=== PATIENT | female | born 1990 | race Caucasian/White ===

== ENCOUNTER 2023-11-04 17:54 | Emergency (ER) | payer OTHER, SELFPAY ==
[2023-11-04] VITALS (12 sets, daily range): BP systolic 142–149; BP diastolic 85–98; PULSE 63–87; RESP 13–24; TEMP 36.7; O2SAT 96–100; BMI 35.3
--- NOTE | 2023-11-04 18:03 | ED.GENADUL1 ---
HPI - General Adult General Chief complaint: Upper Respiratory Infection Stated complaint: BODY ACHES CHEST PAIN Time Seen by Provider: 11/04/23 17:58 Source: patient Mode of arrival: walk-in Limitations: no limitations History of Present Illness HPI narrative: 33-year-old female presents for multiple symptoms all of which began today. She states it started with a hoarse voice which is a little bit better now. She states her throat hurts and she's been vomiting and I can't keep anything down. Her body hurts as well. She took a home Covid test that was negative. Related Data Previous Rx's Medication Instructions Recorded ibuprofen 800 mg tablet 800 mg PO Q8H PRN pain #20 tabs 11/04/23 ondansetron 4 mg disintegrating 4 mg PO Q6H PRN nausea and 11/04/23 tablet vomiting #20 tabs Allergies Allergy/AdvReac Type Severity Reaction Status Date / Time codeine Allergy Severe Hives Verified 11/04/23 18:03 Review of Systems ROS Narrative A ten point review of systems is negative except as noted above. Exam Narrative Exam Narrative: Nurses note and vital signs reviewed and patient is not hypoxic. General: The patient appears well and in no apparent distress. Patient is resting comfortably on cart. Skin: Warm, dry, no pallor noted. There is no rash noted. Head: Normocephalic, atraumatic Eye: Normal conjunctiva, no drainage Ears, Nose, Mouth, and Throat: oral mucosa is moist. Nares patent. no pharyngeal erythema or exudate Cardiovascular: Regular Rate and Rhythm Respiratory: Patient is in no distress, no accessory muscle use, lungs are clear to auscultation, no wheezing, rales or rhonchi Back: non-tender GI: soft and nontender Musculoskeletal: The patient has no evidence of calf tenderness, no pitting edema, symmetrical pulses noted bilaterally Neurological: A&O, normal speech Psychiatric: Cooperative Constitutional Vital Signs, click to edit/add: Last Vital Signs Temp 98.1 F 11/04/23 17:58 Pulse 72 11/04/23 18:20 Resp 13 11/04/23 18:20 BP 149/85 H 11/04/23 18:13 Pulse Ox 97 11/04/23 18:20 O2 Del Method Room Air 11/04/23 17:58 Course Vital Signs Vital signs: Vital Signs Temperature 98.1 F 11/04/23 17:58 Pulse Rate 80 11/04/23 17:58 Respiratory Rate 20 11/04/23 17:58 Blood Pressure 142/98 H 11/04/23 17:58 Pulse Oximetry 98 11/04/23 17:58 Oxygen Delivery Method Room Air 11/04/23 17:58 Temperature 98.1 F 11/04/23 17:58 Pulse Rate 72 11/04/23 18:20 Respiratory Rate 13 11/04/23 18:20 Blood Pressure 149/85 H 11/04/23 18:13 Pulse Oximetry 97 11/04/23 18:20 Oxygen Delivery Method Room Air 11/04/23 17:58 Medical Decision Making MDM Narrative Medical decision making narrative: workup is negative. This includes influenza and strep tests as well as blood work. She had a home Covid test that was negative. My clinical impression is that she has a viral illness. Antibiotic not indicated. Treatment diagnosis and follow-up were discussed with the patient. Differential Diagnosis Differential Diagnosis: Covid, influenza, strep, viral illness Lab Data Lab results reviewed: Yes I reviewed the patient's lab results Labs: Lab Results 11/04/23 Range/Units 18:09 WBC 10.2 (4.0-11.0) 10^3/uL RBC 4.51 (4.20-5.40) 10^6/uL Hgb 12.7 (12.0-16.0) g/dL Hct 39.7 (36.0-48.0) % MCV 88.0 (81.0-99.0) fL MCH 28.2 (26.7-34.0) pg MCHC 32.0 (29.9-35.2) g/dL RDW 12.7 (11.0-15.0) % Plt Count 352 (150-450) 10^3/uL MPV 9.2 L (9.5-13.5) fL Neut % (Auto) 64.5 (43.0-75.0) % Lymph % (Auto) 27.6 (20.5-60.0) % Coles % (Auto) 6.4 (1.7-12.0) % Eos % (Auto) 0.7 L (0.9-7.0) % Baso % (Auto) 0.5 (0.2-2.0) % Neut # (Auto) 6.6 H (1.4-6.5) 10^3/uL Lymph # (Auto) 2.8 (1.2-3.8) 10^3/uL Coles # (Auto) 0.7 (0.3-0.8) 10^3/uL Eos # (Auto) 0.1 (0.0-0.7) 10^3/uL Baso # (Auto) 0.1 (0.0-0.1) 10^3/uL Abs Immat Gran (auto) 0.03 (0.00-0.03) 10^3/uL Imm/Tot Granulo (auto) 0.3 (0.0-0.5) % Sodium 141 (136-145) mmol/L Potassium 3.8 (3.5-5.1) mmol/L Chloride 106 (98-107) mmol/L Carbon Dioxide 26.9 (21.0-32.0) mmol/L Anion Gap 11.9 BUN 9.0 (7.0-18.0) mg/dL Creatinine 0.78 (0.55-1.02) mg/dL Est GFR ( Amer) >60 (>=60) Est GFR (Non-Af Amer) >60 (>=60) BUN/Creatinine Ratio 11.5 Glucose 94 (74-106) mg/dL Calcium 8.5 (8.5-10.1) mg/dL Influenza Type A Ag Negative Influenza Type B Ag Negative Streptococcus Screen Negative Discharge Plan Discharge Chief Complaint: Upper Respiratory Infection Clinical Impression: Viral infection Patient Disposition: Home, Self-Care Time of Disposition Decision: 18:45 Condition: Good Mode of Transportation: Private Vehicle Prescriptions / Home Meds: New ibuprofen 800 mg tablet 800 mg PO Q8H PRN (Reason: pain) Qty: 20 0RF ondansetron 4 mg tablet,disintegrating 4 mg PO Q6H PRN (Reason: nausea and vomiting) Qty: 20 0RF Instructions: Viral Syndrome (ED) Stand Alone Forms: Portal Instructions Referrals: Physician,Non-Staff, MD [Primary Care Provider] - 1 week
--- NOTE | 2023-11-04 18:04 | ECG_ITS ---
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
[2023-11-04] MEDS: 0.9 % SODIUM CHLORIDE 1,000 ML 1000 ML IV (18:15)
[2023-11-04] MEDS: ONDANSETRON PF 4 MG/2 ML VIAL IV (18:15)
[2023-11-04 18:20] LABS: Basophils Absolute Auto 0.1 10^3/uL (0.0-0.1); Basophils Percent Auto 0.5 % (0.2-2.0); Eosinophils Absolute Auto 0.1 10^3/uL (0.0-0.7); Eosinophils Percent Auto 0.7 % (0.9-7.0); Hematocrit 39.7 % (36.0-48.0); Hemoglobin 12.7 g/dL (12.0-16.0); Immature Granulocytes Abs Auto 0.03 10^3/uL (0.00-0.03); Immature Granulocytes Pct Auto 0.3 % (0.0-0.5); Lymphocytes Absolute Auto 2.8 10^3/uL (1.2-3.8); Lymphocytes Percent Auto 27.6 % (20.5-60.0); Mean Corpuscular Hemoglobin 28.2 pg (26.7-34.0); Mean Platelet Volume 9.2 fL (9.5-13.5); Monocytes Absolute Auto 0.7 10^3/uL (0.3-0.8); Monocytes Percent Auto 6.4 % (1.7-12.0); Neutrophils Absolute Auto 6.6 10^3/uL (1.4-6.5); Neutrophils Percent Auto 64.5 % (43.0-75.0); Platelet Count 352 10^3/uL (150-450); Red Blood Count 4.51 10^6/uL (4.20-5.40); Red Cell Distribution Width 12.7 % (11.0-15.0); White Blood Count 10.2 10^3/uL (4.0-11.0)
[2023-11-04 18:27] LABS: Internal Control Within Normal Limits; Strep A Antigen Screen Negative
[2023-11-04 18:32] LABS: Anion Gap 11.9; BUN Creatinine Ratio 11.5; Calcium 8.5 mg/dL (8.5-10.1); Carbon Dioxide 26.9 mmol/L (21.0-32.0); Chloride 106 mmol/L (98-107); Estimated GFR (African America >60 (>=60); Estimated GFR (Non-African Ame >60 (>=60); Glucose 94 mg/dL (74-106); Influenza Virus A Antigen Negative; Influenza Virus B Antigen Negative; Internal Control Within Normal Limits; Potassium 3.8 mmol/L (3.5-5.1); Sodium 141 mmol/L (136-145)
== END 2023-11-04 19:24 | disposition home or self-care (01) ==
PROVIDERS: Emergency Provider Emergency Medicine
DX: B34.9 Viral infection, unspecified (principal)
CPT/HCPCS: 36415; 80048; 85025; 87070; 87804; 87880; 93005; 96361; 96374; 99285

== ENCOUNTER 2024-02-20 17:18 | Emergency (ER) | payer OTHER, SELFPAY ==
--- OUTSIDE RECORDS SUMMARY | 2024-02-20 17:24 | XMS_ITS | CCD ---
Author Organization [facility] Care Team Providers Care Avid Editor Name Role Phone ROLANDO Mcclelland Attending Provider [facility], Services Primary Care Provider [phone]( [phone] DO Maurisio Parks Emergency Provider [phone] Jose A Govea Admitting Unavailable Jose A Govea Attending Unavailable NO FAMILY, PHYSICIAN Primary Care Unavailable [facility], [facility] Primary Care Unavaila ble Emily Mcclelland Admitting Unavailable Emily Mcclelland Attending Unavailable [facility] Primary Care Unavaila ble Emily Mcclelland Admitting Unavailable Emily Mcclelland Attending Unavailable [facility] Primary Care Unavaila ble Emily Mcclelland Attending Unavailable Emily Mcclelland Admitting Unavailable Stas, Emily Mejia Admitting Unavailable [facility], Services Primary Care Unavaila ble Stas, Emily Mejia Attending Unavailable Jose A Govea Admitting Unavailable Jose A Govea Attending Unavailable [facility] Primary Care Unavaila ble TuMaurisio ennis Admitting Unavailable Maurisio Parks Attending Unavailable [facility] Primary Care Unavaila ble GAYATHRI, DR SINCLAIR Primary Care Unavailable NADIR ., DR CARMEN Zaidi Attending Unavaila ble GRILLISaman ., DR CARMEN Zaidi Consulting Unavaila ble GRILLISaman ., DR CARMEN Zaidi Admitting Unavaila ble HAY ., DR SMITH Consulting Unavailable OZ RICCI Consulting Unavailable MAISHA IIDANILO Consulting Unavailable PHILLIP BOGGS Referring Unavailable PHILLIP BOGGS Attending Unavailable Allergies Allergy Classification Reported Allergen(s) Allergy Type Date of Onset Reaction(s) Facility (4 sources) Codeine; Translations: [codeine] Drug Allergy 04-17-2013 [place] (4 sources) HYDROcodone; Translations: [hydrocodone] Drug Allergy 01-26-2022 [place] Medications Current Medications Medication Drug Class(es) Dates Sig (Normalized) Sig (Original) aspirin 81 mg chewable tablet (2 sources) Platelet Aggregation Inhibitor, Nonsteroidal Anti-inflammatory Drug Start: 08-02-2017 take 1 tablet by mouth once daily Aspirin (Aspirin Childrens) 81 mg Tablet,Chewable Active 81 MG PO Daily August 01, 2017 11:00pm 24 hr metFORMIN hydrochloride 500 mg extended release oral tablet (1 source) Biguanide Start: 02-06-2023 take 500 mg by mouth once daily Metformin Active 500 MG PO Daily February 06, 2023 12:00am Completed/Discontinued Medications Medication Drug Class(es) Dates Sig (Normalized) Sig (Original) acetaminophen 325 mg / oxyCODONE hydrochloride 5 mg oral tablet (2 sources) Opioid Agonist Start: 02-06-2022 End: 02-06-2023 take 1-2 tablets by mouth every six hours as needed for pain Oxycodone-Acetamin ophen (Percocet) 5-325 mg tablet Discontinued 1 TAB PO Q6H 12 3 February 06, 2022 February 06, 2023 12:18pm May take 1-2 tabs q 6 hours prn pain [id number] 200 actuat albuterol 0.09 mg/actuat metered dose inhaler (2 sources) beta2-Adrenergic Agonist Start: 03-21-2018 End: 04-24-2018 Albuterol Sulfate Discontinued 2 INH INHALATION Q4H 8 March 20, 2018 11:00pm April 24, 2018 3:56pm administer with spacer cephalexin 500 mg oral capsule (2 sources) Cephalosporin Antibacterial Start: 01-26-2022 End: 02-06-2022 take 500 mg by mouth twice daily Cephalexin Discontinued 500 MG PO Twice daily 14 7 January 26, 2022 12:00am February 06, 2022 6:21am dextromethorphan hydrobromide 3 mg/ml / promethazine hydrochloride 1.25 mg/ml oral solution (2 sources) Phenothiazine, Uncompetitive U-pmylyc-W-aspartat e Receptor Antagonist, Sigma-1 Agonist Start: 03-21-2018 End: 04-24-2018 take 1 mL by mouth every four to six hours Promethazine-Dm Discontinued 5 ML PO EVERY 4-6 HOURS 118 March 20, 2018 11:00pm April 24, 2018 3:56pm hydrocortisone acetate 25 mg rectal suppository (2 sources) Corticosteroid Start: 05-16-2019 End: 09-12-2019 Hydrocortisone Acetate (Anusol-Hc) 25 mg suppository Discontinued 25 MG TX Twice daily May 15, 2019 11:00pm September 12, 2019 9:39pm ibuprofen 600 mg oral tablet (4 sources) Nonsteroidal Anti-inflammatory Drug Start: 02-06-2022 End: 02-06-2023 Ibuprofen Discontinued 600 MG PO Every 6 hours February 06, 2022 12:00am February 06, 2023 12:18pm do not exceed 4 doses in a 24 hour period Start: 07-19-2021 End: 02-06-2022 take 800 mg by mouth every six hours Ibuprofen Discontinued 800 MG PO Q6H July 18, 2021 11:00pm February 06, 2022 6:21am loperamide hydrochloride 2 mg oral capsule (2 sources) Opioid Agonist Start: 08-03-2017 End: 09-28-2017 Loperamide (Imodium A-D) 2 mg capsule Discontinued 2 MG PO Q1H August 02, 2017 11:00pm September 28, 2017 8:49pm after each loose stool until symptoms controlled; do not exceed 8 mg total dose in 24 hrs Mouthwashes (2 sources) Start: 05-14-2020 End: 07-19-2021 Mouthwashes Discontinued 1 SPRAY MUCOUS MEM Daily May 13, 2020 11:00pm July 19, 2021 8:14am naproxen 500 mg oral tablet (4 sources) Nonsteroidal Anti-inflammatory Drug Start: 04-24-2018 End: 05-16-2019 take 1 tablet by mouth twice daily Naproxen (Naprosyn) 500 mg tablet Discontinued 500 MG PO Twice daily March 06, 2019 11:00pm May 16, 2019 12:14am nitrofurantoin, macrocrystals 25 mg / nitrofurantoin, monohydrate 75 mg oral capsule (2 sources) Nitrofuran Antibacterial Start: 12-01-2018 End: 03-06-2019 take 1 capsule by mouth twice daily at mealtime Nitrofurantoin Monohyd/M-Cryst (Macrobid) 100 mg capsule Discontinued 100 MG PO Twice daily December 01, 2018 12:00am March 06, 2019 10:08pm must administer with a meal/food ondansetron 4 mg oral tablet (4 sources) Serotonin-3 Receptor Antagonist Start: 09-29-2017 End: 10-04-2017 take 1 tablet by mouth every eight hours Ondansetron Hcl (Zofran) 4 mg tablet Discontinued 4 MG PO Q8H 15 September 28, 2017 11:00pm October 03, 2017 11:04pm Start: 08-03-2017 End: 09-28-2017 take 1 tablet by mouth every eight hours Ondansetron (Zofran Odt) 4 mg tablet,disintegrating Discontinued 4 MG PO Q8H August 02, 2017 11:00pm September 28, 2017 8:49pm penicillin v potassium 500 mg oral tablet (2 sources) Start: 04-24-2018 End: 03-06-2019 take 500 mg by mouth four times daily Penicillin V Potassium Discontinued 500 MG PO Four times daily April 23, 2018 11:00pm March 06, 2019 10:08pm predniSONE 20 mg oral tablet (2 sources) Start: 03-21-2018 End: 03-26-2018 take 60 mg by mouth once daily at mealtime Prednisone Discontinued 60 MG PO Daily 14 04March 20, 2018 11:00pm March 25, 2018 11:01pm administer with food or milk promethazine hydrochloride 12.5 mg oral tablet (2 sources) Phenothiazine Start: 09-29-2017 End: 03-21-2018 take 12.5 mg by mouth every six hours Promethazine Discontinued 12.5 MG PO Q6H September 28, 2017 11:00pm March 21, 2018 9:42pm Problems Active Problems Problem Classification Problem Date Documented Da te Episodic/Chronic Abdominal pain (4 sources) Right lower quadrant pain; Translations: [Right lower quadrant pain] Onset: 3 Episodic Acute bronchitis (2 sources) Acute bronchitis; Translations: [Acute bronchitis, unspecified] 03-21-2018 Episodic Appendicitis and other appendiceal conditions (1 source) Unspecified acute appendicitis; Translations: [UNSPECIFIED ACUTE APPENDICITIS] Onset: 3 Episodic Diabetes mellitus without complication (1 source) Type 2 diabetes mellitus without complications; Translations: [TYPE 2 DM WITHOUT COMPLICATIONS] Onset: 3 Chronic Diseases of mouth; excluding dental (2 sources) Aphthous ulcer of mouth; Translations: [Recurrent oral aphthae] 05-14-2020 Episodic Gastrointestinal hemorrhage (2 sources) Gastrointestinal hemorrhage; Translations: [Hemorrhage of anus and rectum] 05-16-2019 Episodic Genitourinary symptoms and ill-defined conditions (2 sources) Blood in urine; Translations: [Hematuria, unspecified] 01-26-2022 Episodic Lymphadenitis (2 sources) Lymphadenopathy; Translations: [Generalized enlarged lymph nodes] 07-19-2021 Episodic Nausea and vomiting (4 sources) Nausea, vomiting and diarrhea; Translations: [Nausea with vomiting, unspecified] 09-29-2017 Episodic Nonspecific chest pain (1 source) Chest pain, unspecified; Translations: [Chest pain, unspecified] Onset: 3 Episodic Other aftercare (1 source) nursing home (current) use of oral hypoglycemic drugs; Translations: [SENIOR CARE USE ORAL HYPOGLYCEMIC DX] Onset: 3 Episodic Other gastrointestinal disorders (2 sources) Diarrhea; Translations: [Diarrhea, unspecified] 05-16-2019 Episodic Other nervous system disorders (2 sources) Acute postoperative pain; Translations: [Other acute postprocedural pain] 02-06-2022 Episodic Other nutritional; endocrine; and metabolic disorders (1 source) Obesity, unspecified; Translations: [OBESITY UNSPECIFIED] Onset: 3 Chronic Other nutritional; endocrine; and metabolic disorders (1 source) Body mass index (BMI) 36.0-36.9, adult; Translations: [BODY MASS INDEX BMI 36.0-36.9 ADULT] Onset: 3 Chronic Residual codes; unclassified (1 source) Acquired absence of both cervix and uterus; Translations: [ACQUIRED ABSENCE BOTH CERVIX AND UTERUS] Onset: 3 Episodic Screening and history of mental health and substance abuse codes (1 source) Personal history of nicotine dependence; Translations: [PERSONAL HISTORY OF NICOTINE DEPEND] Onset: 3 Episodic Superficial injury; contusion (2 sources) Contusion of hand; Translations: [Contusion of left hand, initial encounter] 09-12-2019 Episodic Unclassified (1 source) K13.79 - Other lesions of oral mucosa; Translations: [K13.79 - Other lesions of oral mucosa] Onset: 2 Unclassified (1 source) Z01.812 - Encounter for preprocedural laboratory examination; Translations: [Z01.812 - Encounter for preprocedural laboratory examination] Onset: 2 Unclassified (1 source) K80.50 - Calculus of bile duct without cholangitis or cholecystitis without obstruction; Translations: [K80.50 - Calculus of bile duct without cholangitis or cholecystitis without obstruction] Onset: 2 Unclassified (1 source) R60.9 - Edema, unspecified; Translations: [R60.9 - Edema, unspecified] Onset: 2 Unclassified (1 source) CONTACT W/AND (SUSP) EXPOS COVID-19; Translations: [CONTACT W/AND (SUSP) EXPOS COVID-19] Onset: 3 Urinary tract infections (2 sources) Urinary tract infectious disease; Translations: [Urinary tract infection, site not specified] 01-26-2022 Episodic Viral infection (2 sources) Acute viral disease; Translations: [Viral infection, unspecified] 09-29-2017 Episodic Past or Other Problems Problem Classification Problem Date Documented Da te Episodic/Chronic Deficiency and other anemia (1 source) Other iron deficiency anemias; Translations: [D50.8 - Other iron deficiency anemias] Onset: 03-20-2022 Episodic Immunizations and screening for infectious disease (1 source) Encounter for screening for infectious and parasitic diseases, unspecified; Translations: [Z11.9 - Encounter for screening for infectious and parasitic diseases, unspecified] Onset: 05-31-2022 Episodic Other nutritional; endocrine; and metabolic disorders (1 source) Abnormal weight gain; Translations: [R63.5 - Abnormal weight gain] Onset: 03-20-2022 Episodic Results Test Name Value Interpretation Reference Range Facility BI MAMMOGRAM SCREENING TOMOS RUFINO BILATERALon 11-27-2023 BI MAMMOGRAM SCREENING TOMOSYNTHESIS BILATERAL This is a summary report. The complete report is available in the patient's medical record. If you cannot access the medical record, please contact the sending organization for a detailed fax or copy. EXAMINATION: BI MAMMOGRAM SCREENING TOMOSYNTHESIS BILATERAL CLINICAL HISTORY: family hx of breast cancer COMPARISON: None. Baseline. RESULT: 3-D tomosynthesis imaging of the bilateral breast(s) was performed. Density: Heterogeneously dense [3] There are no suspicious masses or asymmetries, areas of architectural distortion or suspicious areas of microcalcifications. IMPRESSION: BIRADS 1 - Negative Recommended follow-up: Routine Screening Mamm Board Certified Radiologists. Accredited by the ACR and FDA. MAMMOGRAPHY IS VERY IMPORTANT TO YOUR HEALTH. THE [place] GUIDELINES RECOMMEND THAT WOMEN 40 YEARS OF AGE AND OLDER SHOULD HAVE A MAMMOGRAM EVERY YEAR. A REMINDER LETTER WILL BE SENT AT THE APPROPRIATE TIME. THIS FACILITY UTILIZES A REMINDER SYSTEM TO ENSURE ALL PATIENTS RECEIVE REMINDER NOTIFICATIONS AT THE APPROPRIATE TIME BASED ON THE RECOMMENDATIONS OF THIS EXAM. THIS INCLUDES REMINDERS FOR ROUTINE SCREENING MAMMOGRAMS, DIAGNOSTIC MAMMOGRAMS IN WHICH THE PATIENT IS ASKED TO RETURN FOR ADDITIONAL VIEWS, OR OTHER BREAST IMAGING INTERVENTIONS WHEN APPROPRIATE. THE PATIENT WILL BE PLACED IN THE APPROPRIATE REMINDER SYSTEM INCLUDING A REMINDER AT THE APPROPRIATE TIME FOR ANY PENDING ADDITIONAL VIEWS. ELECTRONICALLY SIGNED BY: Jose Kiran MD Normal Not Available AMYLASEon 02-06-2023 Amylase [Catalytic activity/Vol] 41 U/L Normal 25-115 [facility] Comment on above: Performed By: #### L IPA, CMP, CHERRY #### [facility] [address] [place] [address] Dr. Kate Oconnor CBC AUTO DIFFon 02-06-2023 BASO # 0.0 103/ul Normal 0.0-0.1 [facility] Comment on above: Performed By: #### C BC #### [facility] [address] [place] [address] Dr. Kate Oconnor Basophils/100 WBC (Bld) 0.2 % Normal 0.2-2.0 [facility] Comment on above: Performed By: #### C BC #### [facility] [address] [place] [address] Dr. Kate Oconnor EO # 0.1 103/ul Normal 0.0-0.7 [facility] Comment on above: Performed By: #### C BC #### [facility] [address] [place] [address] Dr. Kate Oconnor Eosinophils/100 WBC (Bld) 0.5 % Critically low 0.9-7.0 [facility] Comment on above: Performed By: #### C BC #### [facility] [address] [place] [address] Dr. Kate Oconnor Erythrocyte distribution width (RBC) [Ratio] 13.0 % Normal 11.0-15.0 [facility] Comment on above: Performed By: #### C BC #### [facility] [address] [place] [address] Dr. Kate Oconnor Hematocrit (Bld) [Volume fraction] 41.5 % Normal 36.0-48.0 [facility] Comment on above: Performed By: #### C BC #### [facility] [address] [place] [address] Dr. Kate Oconnor Hemoglobin (Bld) [Mass/Vol] 13.7 g/dL Normal 12.0-16.0 [facility] Comment on above: Performed By: #### C BC #### [facility] [address] [place] [address] Dr. Ktae Oconnor IG # 0.05 10e3/ul Critically high 0.00-0.03 [facility] Comment on above: Performed By: #### C BC #### [facility] [address] [place] [address] Dr. Kate Oconnor IG % 0.3 % Normal 0.0-0.5 [facility] Comment on above: Performed By: #### C BC #### [facility] [address] [place] [address] Dr. Kate Oconnor LYMPH # 2.8 103/ul Normal 1.2-3.8 [facility] Comment on above: Performed By: #### C BC #### [facility] [address] [place] [address] Dr. Kate Oconnor Lymphocytes/100 WBC (Bld) 18.6 % Critically low 20.5-60.0 [facility] Comment on above: Performed By: #### C BC #### [facility] [address] [place] [address] Dr. Kate Oconnor MANUAL DIFF REQ NO Normal [facility] Comment on above: Performed By: #### C BC #### [facility] [address] [place] [address] Dr. Kate Oconnor MCH (RBC) [Entitic mass] 27.2 pg Normal 26.7-34.0 [facility] Comment on above: Performed By: #### C BC #### [facility] [address] [address] [address] Kate Oconnor MCHC (RBC) [Mass/Vol] 33.0 g/dL Normal 29.9-35.2 [facility] Comment on above: Performed By: #### C BC #### [facility] [address] [address] [address] Kate Oconnor MCV (RBC) [Entitic vol] 82.5 fL Normal 81.0-99.0 [facility] Comment on above: Performed By: #### C BC #### [facility] [address] [address] [address] Kate Oconnor MONO # 0.9 103/ul Critically high 0.3-0.8 [facility] Comment on above: Performed By: #### C BC #### [facility] [address] [address] [address] Kate Oconnor Monocytes/100 WBC (Bld) 5.7 % Normal 1.7-12.0 [facility] Comment on above: Performed By: #### C BC #### [facility] [address] [address] [address] Kate Oconnor NEUT # 11.2 103/ul Critically high 1.4-6.5 [facility] Comment on above: Performed By: #### C BC #### [facility] [address] [address] [address] Kate Oconnor Neutrophils/100 WBC (Bld) 74.7 % Normal 43.0-75.0 [facility] Comment on above: Performed By: #### C BC #### [facility] [address] [address] [address] Kate Oconnor Platelet mean volume (Bld) [Entitic vol] 8.9 fL Critically low 9.5-13.5 [facility] Comment on above: Performed By: #### C BC #### [facility] [address] [address] [address] Kate Oconnor PLT 383 103/ul Normal 150-450 [facility] Comment on above: Performed By: #### C BC #### [facility] [address] [place], [place] [address] Dr. Kate Oconnor RBC 5.03 106/ul Normal 4.20-5.40 [facility] Comment on above: Performed By: #### C BC #### [facility] [address] [place], [place] [address] Dr. Kate Oconnor WBC 15.0 103/ul Critically high 4.0-11.0 [facility] Comment on above: Performed By: #### C BC #### [facility] [address] [place], [place] [address] ABD/PELV W CONon 02-07-20 CT ABD/PELV W CON EXAMINATION: CT ABD/ PELV W CON HISTORY: Tenderness of right lower quadrant of abdomen COMPARISON: None. TECHNIQUE: CT of abdomen/pelvis with IV and oral contrast. Dose reduction techniques were achieved by using automated exposure control and/or adjustment of mA and/or kV according to patient size and/or use of iterative reconstruction technique. FINDINGS: Primer Assembler: No pertinent findings, which are not already discussed below. Tubes/lines/drains: None. CHEST: Lungs: Clear. Cardiac and vascular: No cardiomegaly or significant pericardial effusion. ABDOMEN: Liver: Unremarkable. Gallbladder and Biliary Tree: Unremarkable. Spleen: Unremarkable. Pancreas: Unremarkable. Adrenal Glands: Unremarkable. Kidneys, Ureters, Bladder: Left cortical 1.4 cm simple cyst. No concerning renal lesions or masses. No urolithiasis. No hydronephrosis or hydroureterosis. Unremarkable bladder. Gastrointestinal: No mural thickening or inflammatory changes. No dilated loops of small or large bowel. The tip of the appendix is inflamed and enlarged, 8 mm. No free air or adjacent free fluid. Reproductive organ(s): Uterus is not visualized and may be surgically absent. Lymphatic: No concerning retroperitoneal, mesenteric, or inguinal adenopathy. Vessels: Unremarkable. BONES AND SOFT TISSUE: Bones: No acute fracture. No concerning osseous lesions. Soft Tissue: Small fat-containing umbilical hernia. IMPRESSION: Acute uncomplicated (tip) appendicitis without evidence for perforation or abscess formation. Dr. Ricci discussed this study with SARAH EVANS on 02/06/2023 3:21 PM MST via telephone. Read back of the patient's information and the important finding was performed. Electronically authenticated by: OZ RICCI Date: 2023-02-06 17:22 Normal [facility] CULTURE URINEon 02-06-2023 CULTURE URINE Culture Observations : LIGHT GROWTH OF MIXED GENITAL FLORY. NO POTENTIAL PATHOGENS SEEN. Normal [facility] Comment on above: Performed By: #### U RCX #### [facility] [address] [address] [address] Kate Oconnor Covid-19 PCR (CVDTB)on SARS-CoV-2 (COVID-19) RNA ADRIAN+probe Ql (Unsp spec) Not detected Normal NOT DETECTED [facility] Comment on above: Result Comment: When diagnostic testing is negative, the possibility of a false negative should be considered in the context of a patient's recent exposures and the presence of clinical signs and symptoms consistent with SARS-CoV-2. This test is not yet approved or cleared by the [place] FDA. When there are no FDA-approved or cleared tests available, and other criteria are met, FDA can make tests available under an emergency access mechanism called an Emergency Use Authorization (EUA). The EUA for this test is supported by the [place] of Health and Human Service's declaration that circumstances exist to justify the emergency use of in vitro diagnostics for the detection and/or diagnosis of the virus that causes COVID-19. This EUA will remain in effect for the duration of the COVID-19 declaration justifying emergency of IVDs, unless it is terminated or revoked by the FDA (after which the test may no longer be used). Performed By: #### C VDTBH #### [facility] [address] [place] [address] Dr. Kate Oconnor ER URINE PROFILEon 3 Bilirubin Ql (U) Negative Normal NEGATIVE [facility] Comment on above: Performed By: #### U MICRO, PREGU, ERUR #### [facility] [address] [place] [address] Dr. Kate Oconnor Clarity (U) CLEAR Normal CLEAR [facility] Comment on above: Performed By: #### U MICRO, PREGU, ERUR #### [facility] [address] [address] [address] Kate Oconnor Color (U) YELLOW Normal YELLOW [facility] Comment on above: Performed By: #### U MICRO, PREGU, ERUR #### [facility] [address] [address] [address] Kate IVERSON A micrscopic examina tion will be performed if indicated. Normal [facility] Comment on above: Performed By: #### U MICRO, PREGU, ERUR #### [facility] [address] [address] [address] Kate Oconnor Glucose Ql (U) Negative Normal NEGATIVE [facility] Comment on above: Performed By: #### U MICRO, PREGU, ERUR #### [facility] [address] [address] [address] Kate Oconnor Hemoglobin Ql (U) Negative Normal NEGATIVE [facility] Comment on above: Performed By: #### U MICRO, PREGU, ERUR #### [facility] [address] [address] [address] Kate Oconnor Ketones Ql (U) 40 mg/dl Abnormal NEGATIVE [facility] Comment on above: Performed By: #### U MICRO, PREGU, ERUR #### [facility] [address] [address] [address] Kate Oconnor LEUKOCYTES SMALL Abnormal NEGATIVE [facility] Comment on above: Performed By: #### U MICRO, PREGU, ERUR #### [facility] [address] [address] [address] Kate Oconnor Nitrite Ql (U) Negative Normal NEGATIVE [facility] Comment on above: Performed By: #### U MICRO, PREGU, ERUR #### [facility] [address] [address] [address] Kate Oconnor pH (U) 5.5 [pH] Normal 5-9 [facility] Comment on above: Performed By: #### U MICRO, PREGU, ERUR #### [facility] [address] [address] [address] Kate Oconnor SPEC GRAVITY >=1.030 Abnormal 1.005-<=1.025 [facility] Comment on above: Performed By: #### U MICRO, PREGU, ERUR #### [facility] [address] [place] [address] Dr. Kate Oconnor UA PROTEIN Negative Normal NEGATIVE/ TRACE [facility] Comment on above: Performed By: #### U MICRO, PREGU, ERUR #### [facility] [address] [place] [address] Dr. Kate Oconnor UR MICRO IND INDICATED Normal [facility] Comment on above: Performed By: #### U MICRO, PREGU, ERUR #### [facility] [address] [place] [address] Dr. Kate Oconnor Urobilinogen Qn (U) 0.2 {Sukh'U}/dL Normal 0.2 - 1.0 [facility] Comment on above: Performed By: #### U MICRO, PREGU, ERUR #### [facility] [address] [place] [address] Dr. Kate Oconnor LIPASEon 02-06-2023 Lipase [Catalytic activity/Vol] 46.0 U/L Critically low 73.0-393.0 [facility] Comment on above: Performed By: #### L IPA CMP, CHERRY #### [facility] [address] [place] [address] Dr. Kate Oconnor URon 02-06-2023 , QUAL Negative Normal NEGATIVE [facility] Comment on above: Performed By: #### U MICRO, PREGU, ERUR #### [facility] [address] [place] [address] Dr. Kate Oconnor PROF 14(COMP METB)on 023 Albumin [Mass/Vol] 4.1 g/dL Normal 3.4-5.0 [facility] Comment on above: Performed By: #### L IPA CMP, CHERRY #### [facility] [address] [place] [address] Dr. Kate Oconnor Albumin/Globulin [Mass ratio] 1.3 {ratio} Normal [facility] Comment on above: Performed By: #### L IPA CMP, CHERRY #### [facility] [address] [address] [address] Kate Oconnor ALP [Catalytic activity/Vol] 78 U/L Normal 46-116 [facility] Comment on above: Performed By: #### L IPA, CMP, CHERRY #### [facility] [address] [address] [address] Kate Oconnor ALT [Catalytic activity/Vol] 25 U/L Normal 14-59 [facility] Comment on above: Performed By: #### L IPA, CMP, CHERRY #### [facility] [address] [address] [address] Kate Oconnor Anion gap [Moles/Vol] 9.6 mmol/L Normal [facility] Comment on above: Performed By: #### L IPA, CMP, CHERRY #### [facility] [address] [place] [address] Dr. Kate Oconnor AST [Catalytic activity/Vol] 18 U/L Normal 15-37 [facility] Comment on above: Performed By: #### L IPA, CMP, CHERRY #### [facility] [address] [address] [address] Kate Oconnor Bilirubin [Mass/Vol] 0.9 mg/dL Normal 0.2-1.0 [facility] Comment on above: Performed By: #### L IPA, CMP, CHERRY #### [facility] [address] [place] [address] Dr. Kate Oconnor Calcium [Mass/Vol] 8.8 mg/dL Normal 8.5-10.1 [facility] Comment on above: Performed By: #### L IPA, CMP, CHERRY #### [facility] [address] [address] [address] Kate Oconnor Chloride [Moles/Vol] 105 mmol/L Normal 98-107 [facility] Comment on above: Performed By: #### L IPA, CMP, CHERRY #### [facility] [address] [address] [address] Kaet Oconnor CO2 [Moles/Vol] 26.8 mmol/L Normal 21.0-32.0 [facility] Comment on above: Performed By: #### L IPA, CMP, CHERRY #### [facility] [address] [address] [address] Kate Oconnor Creatinine [Mass/Vol] 0.69 mg/dL Normal 0.55-1.02 [facility] Comment on above: Performed By: #### L IPA, CMP, CHERRY #### [facility] [address] [address] [address] Kate Oconnor EGFR-AF UKRAINIAN >60 Normal >=60 [facility] Comment on above: Performed By: #### L IPA, CMP, CHERRY #### [facility] [address] [address] [address] Kate Oconnor EGFR-NON AF UKRAINIAN >60 Normal >=60 [facility] Comment on above: Performed By: #### L IPA, CMP, CHERRY #### [facility] [address] [address] [address] Kate Oconnor Globulin (S) [Mass/Vol] 3.2 g/dL Normal [facility] Comment on above: Performed By: #### L IPA, CMP, CHERRY #### [facility] [address] [address] [address] Kate Oconnor Glucose [Mass/Vol] 95 mg/dL Normal 74-106 [facility] Comment on above: Performed By: #### L IPA, CMP, CHERRY #### [facility] [address] [address] [address] Kate Oconnor Potassium [Moles/Vol] 3.4 mmol/L Critically low 3.5-5.1 [facility] Comment on above: Performed By: #### L IPA, CMP, CHERRY #### [facility] [address] [address] [address] Kate Oconnor Protein [Mass/Vol] 7.3 g/dL Normal 6.4-8.2 [facility] Comment on above: Performed By: #### L IPA, CMP, CHERRY #### [facility] [address] [address] [address] Kate Oconnor Sodium [Moles/Vol] 138 mmol/L Normal 136-145 [facility] Comment on above: Performed By: #### L IPA, CMP, CHERRY #### [facility] [address] [address] [address] Kate Oconnor Urea nitrogen [Mass/Vol] 9.0 mg/dL Normal 7.0-18.0 [facility] Comment on above: Performed By: #### L IPA, CMP, CHERRY #### [facility] [address] [address] [address] Kate Oconnor Urea nitrogen/Creatinin e [Mass ratio] 13.0 mg/mg Normal [facility] Comment on above: Performed By: #### L IPA, CMP, CHERRY #### [facility] [address] [place] [address] Dr. Kate Oconnor URINE MICROSCOPIC ONLYon BACTERIA TRACE Abnormal NONE SEEN [facility] Comment on above: Performed By: #### U MICRO, PREGU, ERUR #### [facility] [address] [place] [address] Dr. Kate Oconnor Bacteria identified Cx Nom (U) INDICATED Normal [facility] Comment on above: Performed By: #### U MICRO, PREGU, ERUR #### [facility] [address] [place] [address] Dr. Kate Oconnor CA OX CRYSTALS FEW Normal [facility] Comment on above: Performed By: #### U MICRO, PREGU, ERUR #### [facility] [address] [place] [address] Dr. Kate Oconnor CAST NONE SEEN Normal NONE SEEN [facility] Comment on above: Performed By: #### U MICRO, PREGU, ERUR #### [facility] [address] [place] [address] Dr. Kate Oconnor Crystals LM Nom (Urine sed) SEEN Abnormal NONE SEEN [facility] Comment on above: Performed By: #### U MICRO, PREGU, ERUR #### [facility] [address] [address] [address] Kate Oconnor Epithelial cells LM Ql (Urine sed) FEW Abnormal NONE SEEN /RARE [facility] Comment on above: Performed By: #### U MICRO, PREGU, ERUR #### [facility] [address] [address] [address] Kate Oconnor MUCOUS NONE SEEN Normal NONE SEEN [facility] Comment on above: Performed By: #### U MICRO, PREGU, ERUR #### [facility] [address] [address] [address] Kate Oconnor RBC 0-2 Normal 0-2 [facility] Comment on above: Performed By: #### U MICRO, PREGU, ERUR #### [facility] [address] [address] [address] Kate Oconnor WBC 5-10 Abnormal NONE SEEN [facility] Comment on above: Performed By: #### U MICRO, PREGU, ERUR #### [facility] [address] [address] [address] Kate Oconnor CA holter monitor recordingo n 12-10-2022 CA holter monitor recording [facility] [place] [address] Holter Monitor Report Signed Patient: Neisha Engel MR#: [id number] : 1990 Acct:[id number] Age/Sex: 32 / F ADM Date: 12/04/22 Loc: Room: Type: [facility] Attending Dr: GAEL Pereira APRN Copies to: Emily Mcclelland APRN, GAEL Syed MD, [facility] Ordering Provider: Emily Mcclelland APRN, NP-C Date of Service: 12/04/22 CA/CA holter monitor recording: Chest pain, unspecified type ORDERED BY: ROLANDO Paez INDICATION: A 32-year-old patient with chest pain. 1. The rhythm is sinus throughout the recording. Average heart rate 84 beats per minute. The minimum heart rate was 50 beats per minute, sinus bradycardia at 6:09 a.m., and the maximum heart rate was 145 beats per minute, sinus tachycardia at 11:51 a.m. 2. Three isolated PVCs are noted. 3. No significant premature atrial complexes were seen, except for 1 event of atrial pair. 4. Mild sinus arrhythmia is noted, which is appropriate for the patient's age. 5. No pauses exceeding 2 seconds were seen. 6. No symptoms in the patient's diary. CONCLUSION: A 48-hour Holter monitor that revealed sinus rhythm mechanism throughout. Average heart rate is normal at 84 beats per minute. Three PVCs and no significant premature atrial complexes except for 1 event of atrial couplet. There was no pause exceeding 2 seconds noted. No symptoms in the patient's diary. No previous studies are available for comparison. Transcribed By: GABRIELA 12/10/22 173 Dictated By: Rhoda Syed MD, [facility] 12/10/22 1714 Signed By: 12/11/22 1351 [place] ECG 12 lead ECGon 12-04-2022 ECG 12 lead ECG [facility] [place] [address] Electrocardiograph Report Signed Patient: Neihsa Engel MR#: [id number] : 1990 Acct:[id number] Age/Sex: 32 / F ADM Date: 12/04/22 Loc: Room: Type: [facility] Attending Dr: GAEL Pereira APRN Ordering Provider: Emily Mcclelland APRN, NP-C Date of Service: 12/04/2203/23/1226 ECG/ECG 12 lead ECG: Chest pain, unspecified type Copies to: Test Reason : Blood Pressure : / mmHG Vent. Rate : 064 BPM Atrial Rate : 064 BPM P-R Int : 136 ms QRS Dur : 088 ms QT Int : 380 ms P-R-T Axes : 018 014 012 degrees QTc Int : 392 ms Normal sinus rhythm Normal ECG When compared with ECG of 31-MAY-2022 07:57, No significant change was found Confirmed by ANTONIO COOPER DO ([id number]) on 12/04/2022 6:55:01 PM Referred By: Electronically Signed By:ANTONIO COOPER DO Transcribed By: MUS Signed By Antonio Cooper DO 12/04 8009 [place] 06-05-2022 L ----- Specimen: [id number] Received: 06/06/22 Status: [facility] TER[facility] Barrios Num: [id number] Spec Type: Surgical Subm Dr: Jose A Govea DO Tissues: A Mucocele - Salivary (LT LOWER LIP MUCOCELE) Procedures: HE Stain, Gross/Micro L3 Patient Age/Sex Location Account Attending Physician Neisha Engel 31/ [place] [id number] Jose A Govea DO SPEC NUM: [id number] RECD: 06/06/22 STATUS: [facility] TER[facility] BARRIOS NUM: [id number] BRADLEY: 06/05/22- [place]Z DR: Jose A Govea DO ENTERED: 06/06/22 [facility] DR: Noe [facility] SPEC TYPE: Surgical DEPT: S ORDERED: HE Stain, Gross/Micro L3 ORDERED: HE Stain, Gross/Micro L3 Pathological Diagnosis Left lip mucocele, excision: - Ruptured mucocele cyst with numerous histiocytes, see NOTE. NOTE: Immunohistochemical studies of CD34, S100, desmin, SMA and CD68 have been performed. CD68 highlights numerous histiocytes/macrophages arranged within a circumscribed nodule. The lesional cells are negative for CD34, S100 and desmin. SMA is noncontributory. This case has been reviewed by a second pathologist, who concurs with the above diagnosis. Clinical Information Lower lip mucocele; excision lower left lip mucocele Gross Description Received in formalin labeled with the patient's name and left lip mucocele is a 1.2 x 0.6 cm ellipse of ramirez white apparent skin excised to a depth of 0.7 cm. Sectioning reveals a 0.6 cm yellow-ramirez, rubbery nodule. The specimen is entirely submitted labeled A1. (LG/) Microscopic Description One glass slide with H E stained material and five IHC stained slides has been examined. The microscopic findings support the above pathologic diagnosis. The use of one or more reagents in the above tests is regulated as an analyte specific reagent (ASR). The performance characteristics were determined by the Laboratory of Specimen: [id number] Received: 06/06/22 Status: [facility] Num: [id number] Spec Type: Surgical Subm Dr: Jose A Govea DO Tissues: A Mucocele - Salivary (LT LOWER LIP MUCOCELE) Procedures: HE Stain, Gross/Micro L3 Patient: Neisha Engel [id number] (Continued) Specimen: [id number] Received: 06/06/22 (Continued) Microscopic Description (Continued) Signed (signature on file) Jose Falcon MD 06/07/22 1759 Specimen: [id number] Received: 06/06/22 Status: [facility] Num: [id number] Spec Type: Surgical Subm Dr: Jose A Govea DO Tissues: A Mucocele - Salivary (LT LOWER LIP MUCOCELE) Procedures: HE Stain, Gross/Micro L3 Patient: Neisha Engel [id number] (Continued) Specimen: [id number] Received: 06/06/22 (Continued) Microscopic Description (Continued) [facility]. Immunohistochemistry assays have not been validated on decalcified tissue. Results should be interpreted with caution given the possibility of false negative results on decalcified specimens. They have not been cleared by the [place] Food and Drug Administration. The FDA has determined that such clearance or approval is not necessary. CPT Codes 54984 19399, 95544?3 Specimen: [id number] Received: 06/06/22 Status: [facility] TER[facility] Barrios Num: [id number] Spec Type: Surgical Subm Dr: Jose A Govea DO Tissues: A Mucocele - Salivary (LT LOWER LIP MUCOCELE) Procedures: HE Stain, Gross/Micro L3 Patient: Neisha Engel [id number] (Continued) Signed (signature on file) Jose Falcon MD 06/07/22 2598 Normal [facility] Basic Metabolic Panelon 07-0 Calcium [Mass/Vol] 8.8 mg/dL Normal 8.2-10.2 [facility] Comment on above: Order Comment: Reaso n for Exam Screening examination for infectious disease;Blood tests leatha Result Comment: PERF ORMED BY: [place] [address] PATHOLOGIST SITE AUDITOR GLORIA DOWNEY M.D. Performed By: #### B MP #### [facility] [address] [place] [address] Chloride [Moles/Vol] 105 mmol/L Normal 95-114 [facility] Comment on above: Order Comment: Reaso n for Exam Screening examination for infectious disease;Blood tests leatha Performed By: #### B MP #### [facility] [address] [place] [address] CO2 [Moles/Vol] 24.4 mmol/L Normal 22.0-30.0 [facility] Comment on above: Order Comment: Reaso n for Exam Screening examination for infectious disease;Blood tests leatha Performed By: #### B MP #### [address] Creatinine [Mass/Vol] 0.74 mg/dL Normal 0.44-1.03 [facility] Comment on above: Order Comment: Reaso n for Exam Screening examination for infectious disease;Blood tests leatha Performed By: #### B MP #### [address] [place] [address] [place] Estimated GFR ( Chantel > 60 Normal [facility] Comment on above: Order Comment: Reaso n for Exam Screening examination for infectious disease;Blood tests leatha Result Comment: GFR estimated reference range: According to KDOQI guidelines, <60 ml/min/1.73m2 is sufficient to diagnose a patient with chronic kidney disease. Performed By: #### B MP #### [facility] [address] [place] [address] [place] Estimated GFR (Non- Am > 60 Normal [facility] Comment on above: Order Comment: Reaso n for Exam Screening examination for infectious disease;Blood tests leatha Performed By: #### B MP #### [address] Glucose [Mass/Vol] 91 mg/dL Normal 70-100 [facility] Comment on above: Order Comment: Reaso n for Exam Screening examination for infectious disease;Blood tests leatha Result Comment: [place] Glucose Reference Range is dependent on time and content of last meal. Glucose of more than 200 mg/dL in a nonstressed, ambulatory subject supports the diagnosis of Diabetes Mellitus. ADA recommended reference range Performed By: #### B MP #### [address] Potassium [Moles/Vol] 4.1 mmol/L Normal 3.5-5.1 [facility] Comment on above: Order Comment: Reaso n for Exam Screening examination for infectious disease;Blood tests leatha Performed By: #### B MP #### [place] [address] [place] Sodium [Moles/Vol] 138 mmol/L Normal 136-146 [facility] Comment on above: Order Comment: Reaso n for Exam Screening examination for infectious disease;Blood tests leatha Performed By: #### B MP #### [place] [address] [place] Urea nitrogen [Mass/Vol] 7 mg/dL Low 9-23 [facility] Comment on above: Order Comment: Reaso n for Exam Screening examination for infectious disease;Blood tests leatha Performed By: #### B MP #### [address] [place] [address] [facility] COVID-19 FRMCon 05-31-2022 SARS-CoV-2 (COVID-19) RNA ADRIAN+probe Ql (Unsp spec) Negative Normal Negative [facility] Comment on above: Order Comment: Healt hcare Worker?: N Result Comment: Testing for SARS-CoV-2 by RT-PCR This test was developed and its performance characteristics determined by [facility] and validated at the [facility]. This test has not been FDA cleared or approved. This test has been authorized by FDA under an Emergency Use Authorization (EUA). This test has been validated in accordance with the FDA's Guidance Document (Policy for Diagnostics Testing in Laboratories Certified to Perform High Complexity Testing under CLIA prior to Emergency Use Authorization for Coronavirus Disease-2019 during the Public Health Emergency) issued on March 02, 2020. This test is only authorized for the duration of time the declaration that circumstances exist justifying the authorization of the emergency use of in vitro diagnostic tests for detection of SARS-CoV-2 virus and/or diagnosis of COVID-19 infection under section 564(b)(1) of the Act, 21 U.S.C. 360bbb-3(b)(1), unless the authorization is terminated or revoked sooner. PERFORMED BY: [place] [address] PATHOLOGIST SITE AUDITOR GLORIA DOWNEY M.D. Performed By: #### C OVID 19 [facility] #### [address] Complete Blood Count Auto Di ffon 05-31-2022 Basophils (Bld) [#/Vol] 0.0 10*3/uL Normal 0.0-0.2 [facility] Comment on above: Order Comment: Reaso n for Exam Screening examination for infectious disease;Blood tests leatha Result Comment: PERF ORMED BY: [place] [address] PATHOLOGIST SITE AUDITOR GLORIA DOWNEY M.D. Performed By: #### C BC #### [address] Basophils/100 WBC (Bld) 0.4 % Normal . [facility] Comment on above: Order Comment: Reaso n for Exam Screening examination for infectious disease;Blood tests leatha Performed By: #### C BC #### [facility] [address] Eosinophils (Bld) [#/Vol] 0.1 10*3/uL Normal 0.0-0.45 [facility] Comment on above: Order Comment: Reaso n for Exam Screening examination for infectious disease;Blood tests leatha Performed By: #### C BC #### [address] Eosinophils/100 WBC (Bld) 1.2 % Normal . [facility] Comment on above: Order Comment: Reaso n for Exam Screening examination for infectious disease;Blood tests leatha Performed By: #### C BC #### [address] Erythrocyte distribution width (RBC) [Ratio] 13.8 % Normal 11.9-15.3 [facility] Comment on above: Order Comment: Reaso n for Exam Screening examination for infectious disease;Blood tests leatha Performed By: #### C BC #### [address] Hematocrit (Bld) [Volume fraction] 40.3 % Normal 34.0-46.4 [facility] Comment on above: Order Comment: Reaso n for Exam Screening examination for infectious disease;Blood tests leatha Performed By: #### C BC #### [address] Hemoglobin (Bld) [Mass/Vol] 13.6 g/dL Normal 11.8-15.4 [facility] Comment on above: Order Comment: Reaso n for Exam Screening examination for infectious disease;Blood tests leatha Performed By: #### C BC #### [address] Lymphocytes (Bld) [#/Vol] 2.6 10*3/uL Normal 1.00-4.8 [facility] Comment on above: Order Comment: Reaso n for Exam Screening examination for infectious disease;Blood tests leatha Performed By: #### C BC #### [facility] [address] Lymphocytes/100 WBC (Bld) 34.7 % Normal . [facility] Comment on above: Order Comment: Reaso n for Exam Screening examination for infectious disease;Blood tests leatha Performed By: #### C BC #### [facility] [address] MCH (RBC) [Entitic mass] 27.4 pg Normal 24.7-34.3 [facility] Comment on above: Order Comment: Reaso n for Exam Screening examination for infectious disease;Blood tests leatha Performed By: #### C BC #### [address] MCV (RBC) [Entitic vol] 81.4 fL Normal 80-100 [facility] Comment on above: Order Comment: Reaso n for Exam Screening examination for infectious disease;Blood tests leatha Performed By: #### C BC #### [address] Mean Corpuscular HGB Conc 33.6 g/dL Normal 32.0-35.0 [facility] Comment on above: Order Comment: Reaso n for Exam Screening examination for infectious disease;Blood tests leatha Performed By: #### C BC #### [address] Monocytes (Bld) [#/Vol] 0.6 10*3/uL Normal 0.0-0.8 [facility] Comment on above: Order Comment: Reaso n for Exam Screening examination for infectious disease;Blood tests leatha Performed By: #### C BC #### [place] [address] [place] Monocytes/100 WBC (Bld) 8.3 % Normal . [facility] Comment on above: Order Comment: Reaso n for Exam Screening examination for infectious disease;Blood tests leatha Performed By: #### C BC #### [place] [address] [place] Neutrophils (Bld) [#/Vol] 4.1 10*3/uL Normal 1.8-7.7 [facility] Comment on above: Order Comment: Reaso n for Exam Screening examination for infectious disease;Blood tests leatha Performed By: #### C BC #### [facility] [address] [id number] [place] Neutrophils/100 WBC (Bld) 55.4 % Normal . [facility] Comment on above: Order Comment: Reaso n for Exam Screening examination for infectious disease;Blood tests leatha Performed By: #### C BC #### [facility] [address] [place] [address] [place] Nucleated RBC/100 WBC (Bld) [Ratio] 0.0 % Normal 0-0.5 [facility] Comment on above: Order Comment: Reaso n for Exam Screening examination for infectious disease;Blood tests leatha Performed By: #### C BC #### [facility] [address] [place] [address] [place] Platelet mean volume (Bld) [Entitic vol] 7.2 fL Normal 6.3-10.7 [facility] Comment on above: Order Comment: Reaso n for Exam Screening examination for infectious disease;Blood tests leatha Performed By: #### C BC #### [facility] [address] [place] [address] [place] Platelets (Bld) [#/Vol] 357 10*3/uL Normal 150-450 [facility] Comment on above: Order Comment: Reaso n for Exam Screening examination for infectious disease;Blood tests leatha Performed By: #### C BC #### [facility] [address] [place] [address] [place] RBC (Bld) [#/Vol] 4.96 10*6/uL Normal 3.60-5.00 [facility] Comment on above: Order Comment: Reaso n for Exam Screening examination for infectious disease;Blood tests leatha Performed By: #### C BC #### [facility] [address] [place] [id number] [place] WBC (Bld) [#/Vol] 7.5 10*3/uL Normal 4.5-11.0 [facility] Comment on above: Order Comment: Reaso n for Exam Screening examination for infectious disease;Blood tests leatha Performed By: #### C #### [address] ECG 12 lead ECGon 05-31-2022 ECG 12 lead ECG [facility] [place] [address] Electrocardiograph Report Signed Patient: Neisha Engel MR#: [id number] : 1990 Acct:[id number] Age/Sex: 31 / F ADM Date: 05/31/22 [facility] Room: Type: [facility] Attending Dr: Jose A Govea DO Ordering Provider: Jose A Govea DO Date of Service: 05/31/2212/22/740 ECG/ECG 12 lead ECG: Pre Op;Encounter for other preprocedural examination Copies to: Test Reason : Blood Pressure : / mmHG Vent. Rate : 063 BPM Atrial Rate : 063 BPM P-R Int : 138 ms QRS Dur : 090 ms QT Int : 386 ms P-R-T Axes : 018 019 008 degrees QTc Int : 395 ms Normal sinus rhythm Normal ECG No previous ECGs available Confirmed by ANTONIO COOPER DO ([id number]) on 05/31/2022 1:18:07 PM Referred By: XUAN Electronically Signed By:ANTONIO COOPER DO Transcribed By: MUS Signed By Antonio Cooper DO 05/31 1318 Normal [facility] US abdomen limitedon 022 US abdomen limited [facility] [place] [address] Ultrasound Report Signed Patient: Neisha Engel MR#: [id number] : 1990 Acct:[id number] Age/Sex: 31 / F ADM Date: 04/23/22 [facility]: [facility]: [facility] Att[facility] Dr: GAEL Pereira APRN Ordering Provider: Emily Mcclelland APRN, NP-C Date of Service: 04/23/22 US/US abdomen limited: K80.50 Copies to: Emily Mcclelland APRN, NP-C LIMITED ABDOMINAL ULTRASOUND WITH ASSESSMENT OF RIGHT UPPER QUADRANT HISTORY: Biliary colic. COMPARISON:None Negative ultrasound Mallory's sign reported. Common duct measures 3mm. Normal echogenicity of the liver parenchyma identified. No hepatic mass identified. No intrahepatic biliary ductal dilatation identified. No gallstones or gallbladder sludge identified. No gallbladder wall thickening is seen. No pericholecystic fluid is identified. The visualized portions of pancreas unremarkable. Normal blood flow of the main portal vein is identified. The liver has a length of18.1 cm. No RIGHT hydronephrosis identified. US/US abdomen limited IMPRESSION: Unremarkable gallbladder. No biliary duct dilatation. Impression dictated by: Tommy Myers M.D.04/23/2022 9:19 AM Dictation Location: [place] [address] Tech: Alyse Bravo Transcribed By: RAJESH 04/23/22918 Dictated By: Tommy Myers DO 04/23/22915 Signed By: 04/23/22918 Normal [facility] [place] [address] Ultrasound Report Signed Patient: Neisha Engel MR#: [id number] : 1990 Acct:[id number] Age/Sex: 31 / F ADM Date: 03/26/22 Loc: Room: Type: [facility] Attending Dr: GAEL Pereira APRN Ordering Provider: Emily Mcclelland APRN, NP-C Date of Service: 03/26/22 US/US venous duplex LE BI: Peripheral edema Copies to: Emily Mcclelland APRN, NP-C BILATERAL LOWER EXTREMITY VENOUS DUPLEX INDICATION: Bilateral lower extremity edema and swelling PROCEDURE: Color-flow duplex scanning is used to interrogate the deep venous system of the right and left lower extremities. The common femoral vein, femoral vein and popliteal vein show good compressibility with normal proximal and distal augmentation. The calf veins are compressible. US/US venous duplex LE BI IMPRESSION: NO EVIDENCE FOR DEEP VEIN THROMBOSIS OR PROXIMAL SUPERFICIAL THROMBOPHLEBITIS IN THE RIGHT OR LEFT LOWER EXTREMITY. Impression dictated by: Maury Snow MD03/27/2022 8:01 AM Dictation Location: [place] [address] Tech: Frieda Zaragoza Transcribed By: RAJESH 03/27/22800 Dictated By: Maury Snow MD 03/27/22800 Signed By: 03/27/22800 Normal [facility] Complete Blood Count Auto Di ffon 03-20-2022 Basophils (Bld) [#/Vol] 0.1 10*3/uL Normal 0.0-0.2 [facility] Comment on above: Order Comment: Reaso n for Exam Other iron deficiency anemia Result Comment: PERF ORMED BY: [place] [address] PATHOLOGIST SITE AUDITOR GLORIA DOWNEY M.D. Performed By: #### C BC, TSH3 wRFLX, CMP, FE and TIBC #### [facility] [address] [place] [address] Basophils/100 WBC (Bld) 0.8 % Normal . [facility] Comment on above: Order Comment: Reaso n for Exam Other iron deficiency anemia Performed By: #### C BC, TSH3 wRFLX, CMP, FE and TIBC #### [facility] [address] [place] [address] [place] Eosinophils (Bld) [#/Vol] 0.1 10*3/uL Normal 0.0-0.45 [facility] Comment on above: Order Comment: Reaso n for Exam Other iron deficiency anemia Performed By: #### C BC, TSH3 wRFLX, CMP, FE and TIBC #### [facility] [address] [place] [address] [place] Eosinophils/100 WBC (Bld) 1.3 % Normal . [facility] Comment on above: Order Comment: Reaso n for Exam Other iron deficiency anemia Performed By: #### C BC, TSH3 wRFLX, CMP, FE and TIBC #### [facility] [address] [place] [address] Erythrocyte distribution width (RBC) [Ratio] 13.8 % Normal 11.9-15.3 [facility] Comment on above: Order Comment: Reaso n for Exam Other iron deficiency anemia Performed By: #### C BC, TSH3 wRFLX, CMP, FE and TIBC #### [facility] [address] [place] [address] Hematocrit (Bld) [Volume fraction] 41.2 % Normal 34.0-46.4 [facility] Comment on above: Order Comment: Reaso n for Exam Other iron deficiency anemia Performed By: #### C BC, TSH3 wRFLX, CMP, FE and TIBC #### [address] Hemoglobin (Bld) [Mass/Vol] 13.7 g/dL Normal 11.8-15.4 [facility] Comment on above: Order Comment: Reaso n for Exam Other iron deficiency anemia Performed By: #### C BC, TSH3 wRFLX, CMP, FE and TIBC #### [address] Lymphocytes (Bld) [#/Vol] 2.3 10*3/uL Normal 1.00-4.8 [facility] Comment on above: Order Comment: Reaso n for Exam Other iron deficiency anemia Performed By: #### C BC, TSH3 wRFLX, CMP, FE and TIBC #### [address] Lymphocytes/100 WBC (Bld) 28.8 % Normal . [facility] Comment on above: Order Comment: Reaso n for Exam Other iron deficiency anemia Performed By: #### C BC, TSH3 wRFLX, CMP, FE and TIBC #### [address] MCH (RBC) [Entitic mass] 27.2 pg Normal 24.7-34.3 [facility] Comment on above: Order Comment: Reaso n for Exam Other iron deficiency anemia Performed By: #### C BC, TSH3 wRFLX, CMP, FE and TIBC #### [address] MCV (RBC) [Entitic vol] 81.7 fL Normal 80-100 [facility] Comment on above: Order Comment: Reaso n for Exam Other iron deficiency anemia Performed By: #### C BC, TSH3 wRFLX, CMP, FE and TIBC #### [facility] [address] Mean Corpuscular HGB Conc 33.3 g/dL Normal 32.0-35.0 [facility] Comment on above: Order Comment: Reaso n for Exam Other iron deficiency anemia Performed By: #### C BC, TSH3 wRFLX, CMP, FE and TIBC #### [facility] [address] [place] [address] [place] Monocytes (Bld) [#/Vol] 0.4 10*3/uL Normal 0.0-0.8 [facility] Comment on above: Order Comment: Reaso n for Exam Other iron deficiency anemia Performed By: #### C BC, TSH3 wRFLX, CMP, FE and TIBC #### [facility] [address] [place] [address] [place] Monocytes/100 WBC (Bld) 5.4 % Normal . [facility] Comment on above: Order Comment: Reaso n for Exam Other iron deficiency anemia Performed By: #### C BC, TSH3 wRFLX, CMP, FE and TIBC #### [facility] [address] [place] [address] [place] Neutrophils (Bld) [#/Vol] 5.1 10*3/uL Normal 1.8-7.7 [facility] Comment on above: Order Comment: Reaso n for Exam Other iron deficiency anemia Performed By: #### C BC, TSH3 wRFLX, CMP, FE and TIBC #### [facility] [address] [place] [address] [place] Neutrophils/100 WBC (Bld) 63.7 % Normal . [facility] Comment on above: Order Comment: Reaso n for Exam Other iron deficiency anemia Performed By: #### C BC, TSH3 wRFLX, CMP, FE and TIBC #### [facility] [address] [place] [address] [place] Nucleated RBC/100 WBC (Bld) [Ratio] 0.1 % Normal 0-0.5 [facility] Comment on above: Order Comment: Reaso n for Exam Other iron deficiency anemia Performed By: #### C BC, TSH3 wRFLX, CMP, FE and TIBC #### [facility] [address] Platelet mean volume (Bld) [Entitic vol] 7.8 fL Normal 6.3-10.7 [facility] Comment on above: Order Comment: Reaso n for Exam Other iron deficiency anemia Performed By: #### C BC, TSH3 wRFLX, CMP, FE and TIBC #### [facility] [address] Platelets (Bld) [#/Vol] 369 10*3/uL Normal 150-450 [facility] Comment on above: Order Comment: Reaso n for Exam Other iron deficiency anemia Performed By: #### C BC, TSH3 wRFLX, CMP, FE and TIBC #### [facility] [address] [place] [address] RBC (Bld) [#/Vol] 5.04 10*6/uL High 3.60-5.00 [facility] Comment on above: Order Comment: Reaso n for Exam Other iron deficiency anemia Performed By: #### C BC, TSH3 wRFLX, CMP, FE and TIBC #### [facility] [address] [place] [address] WBC (Bld) [#/Vol] 8.0 10*3/uL Normal 4.5-11.0 [facility] Comment on above: Order Comment: Reaso n for Exam Other iron deficiency anemia Performed By: #### C BC, TSH3 wRFLX, CMP, FE and TIBC #### [facility] [address] Comprehensive Metabolic Pane cortes 03-20-2022 Albumin [Mass/Vol] 3.5 g/dL Normal 3.2-5.5 [facility] Comment on above: Order Comment: Reaso n for Exam Peripheral edema Reason for Exam Other iron deficiency anemia Reason for Exam Weight gain Performed By: #### C BC, TSH3 wRFLX, CMP, FE and TIBC #### [facility] [address] [place] [address] [place] Albumin/Globulin [Mass ratio] 1.3 {ratio} Normal [facility] Comment on above: Order Comment: Reaso n for Exam Peripheral edema Reason for Exam Other iron deficiency anemia Reason for Exam Weight gain Performed By: #### C BC, TSH3 wRFLX, CMP, FE and TIBC #### [facility] [address] [place] [address] [place] ALP [Catalytic activity/Vol] 62 U/L Normal 32-92 [facility] Comment on above: Order Comment: Reaso n for Exam Peripheral edema Reason for Exam Other iron deficiency anemia Reason for Exam Weight gain Performed By: #### C BC, TSH3 wRFLX, CMP, FE and TIBC #### [facility] [address] ALT [Catalytic activity/Vol] 18 U/L Normal 10-60 [facility] Comment on above: Order Comment: Reaso n for Exam Peripheral edema Reason for Exam Other iron deficiency anemia Reason for Exam Weight gain Performed By: #### C BC, TSH3 wRFLX, CMP, FE and TIBC #### [facility] [address] [place] [address] [place] AST [Catalytic activity/Vol] 19 U/L Normal 10-42 [facility] Comment on above: Order Comment: Reaso n for Exam Peripheral edema Reason for Exam Other iron deficiency anemia Reason for Exam Weight gain Performed By: #### C BC, TSH3 wRFLX, CMP, FE and TIBC #### [facility] [address] [place] [address] [place] Bilirubin [Mass/Vol] 0.4 mg/dL Normal 0.3-1.2 [facility] Comment on above: Order Comment: Reaso n for Exam Peripheral edema Reason for Exam Other iron deficiency anemia Reason for Exam Weight gain Performed By: #### C BC, TSH3 wRFLX, CMP, FE and TIBC #### [facility] [address] [place] [address] [place] Calcium [Mass/Vol] 9.1 mg/dL Normal 8.2-10.2 [facility] Comment on above: Order Comment: Reaso n for Exam Peripheral edema Reason for Exam Other iron deficiency anemia Reason for Exam Weight gain Performed By: #### C BC, TSH3 wRFLX, CMP, FE and TIBC #### [facility] [address] Chloride [Moles/Vol] 107 mmol/L Normal 95-114 [facility] Comment on above: Order Comment: Reaso n for Exam Peripheral edema Reason for Exam Other iron deficiency anemia Reason for Exam Weight gain Performed By: #### C BC, TSH3 wRFLX, CMP, FE and TIBC #### [facility] [address] [place] [address] CO2 [Moles/Vol] 21.9 mmol/L Low 22.0-30.0 [facility] Comment on above: Order Comment: Reaso n for Exam Peripheral edema Reason for Exam Other iron deficiency anemia Reason for Exam Weight gain Performed By: #### C BC, TSH3 wRFLX, CMP, FE and TIBC #### [facility] [address] [place] [address] Creatinine [Mass/Vol] 0.72 mg/dL Normal 0.44-1.03 [facility] Comment on above: Order Comment: Reaso n for Exam Peripheral edema Reason for Exam Other iron deficiency anemia Reason for Exam Weight gain Performed By: #### C BC, TSH3 wRFLX, CMP, FE and TIBC #### [facility] [address] [place] [address] Estimated GFR ( Chantel > 60 [place] Comment on above: Order Comment: Reaso n for Exam Peripheral edema Reason for Exam Other iron deficiency anemia Reason for Exam Weight gain Result Comment: GFR estimated reference range: According to KDOQI guidelines, <60 ml/min/1.73m2 is sufficient to diagnose a patient with chronic kidney disease. Performed By: #### C BC, TSH3 wRFLX, CMP, FE and TIBC #### [facility] [address] [place] [address] Estimated GFR (Non- Am > 60 [place] Comment on above: Order Comment: Reaso n for Exam Peripheral edema Reason for Exam Other iron deficiency anemia Reason for Exam Weight gain Performed By: #### C BC, TSH3 wRFLX, CMP, FE and TIBC #### [facility] [address] Globulin (S) [Mass/Vol] 2.7 g/dL Normal [facility] Comment on above: Order Comment: Reaso n for Exam Peripheral edema Reason for Exam Other iron deficiency anemia Reason for Exam Weight gain Performed By: #### C BC, TSH3 wRFLX, CMP, FE and TIBC #### [facility] [address] Glucose [Mass/Vol] 108 mg/dL High 70-100 [facility] Comment on above: Order Comment: Reaso n for Exam Peripheral edema Reason for Exam Other iron deficiency anemia Reason for Exam Weight gain Result Comment: [facility] Glucose Reference Range is dependent on time and content of last meal. Glucose of more than 200 mg/dL in a nonstressed, ambulatory subject supports the diagnosis of Diabetes Mellitus. ADA recommended reference range Performed By: #### C BC, TSH3 wRFLX, CMP, FE and TIBC #### [facility] [address] Potassium [Moles/Vol] 4.0 mmol/L Normal 3.5-5.1 [facility] Comment on above: Order Comment: Reaso n for Exam Peripheral edema Reason for Exam Other iron deficiency anemia Reason for Exam Weight gain Performed By: #### C BC, TSH3 wRFLX, CMP, FE and TIBC #### [facility] [address] [place] [address] [place] Protein [Mass/Vol] 6.2 g/dL Normal 6.1-7.9 [facility] Comment on above: Order Comment: Reaso n for Exam Peripheral edema Reason for Exam Other iron deficiency anemia Reason for Exam Weight gain Performed By: #### C BC, TSH3 wRFLX, CMP, FE and TIBC #### [facility] [address] [place] [id number] [facility] Sodium [Moles/Vol] 139 mmol/L Normal 136-146 [facility] Comment on above: Order Comment: Reaso n for Exam Peripheral edema Reason for Exam Other iron deficiency anemia Reason for Exam Weight gain Performed By: #### C BC, TSH3 wRFLX, CMP, FE and TIBC #### [facility] [address] Urea nitrogen [Mass/Vol] 5 mg/dL Low 9-23 [facility] Comment on above: Order Comment: Reaso n for Exam Peripheral edema Reason for Exam Other iron deficiency anemia Reason for Exam Weight gain Performed By: #### C BC, TSH3 wRFLX, CMP, FE and TIBC #### [facility] [address] [place] [address] Iron and TIBC Profileon 04-2 0-2022 % Iron Saturation 18.0 % Low 20-50 [facility] Comment on above: Order Comment: Reaso n for Exam Peripheral edema Reason for Exam Other iron deficiency anemia Reason for Exam Weight gain Performed By: #### C BC, TSH3 wRFLX, CMP, FE and TIBC #### [facility] [address] [place] [address] Iron [Mass/Vol] 63 ug/dL Normal 40-150 [facility] Comment on above: Order Comment: Reaso n for Exam Peripheral edema Reason for Exam Other iron deficiency anemia Reason for Exam Weight gain Performed By: #### C BC, TSH3 wRFLX, CMP, FE and TIBC #### [facility] [address] [place] [address] Total Iron Binding Capacity 342 ug/dL Normal 255-450 [facility] Comment on above: Order Comment: Reaso n for Exam Peripheral edema Reason for Exam Other iron deficiency anemia Reason for Exam Weight gain Performed By: #### C BC, TSH3 wRFLX, CMP, FE and TIBC #### [facility] [address] [place] [address] Transferrin [Mass/Vol] 244 mg/dL Normal 180-380 [facility] Comment on above: Order Comment: Reaso n for Exam Peripheral edema Reason for Exam Other iron deficiency anemia Reason for Exam Weight gain Performed By: #### C BC, TSH3 wRFLX, CMP, FE and TIBC #### [facility] [address] [place] [address] [place] [address] [facility] Thyroid Stim Hormone w/Rflxo n 03-20-2022 Thyroid Stim Hormone w/Rflx 0.82 u[iU]/mL Normal 0.45-5.33 [facility] Comment on above: Order Comment: Reaso n for Exam Peripheral edema Reason for Exam Other iron deficiency anemia Reason for Exam Weight gain Result Comment: PERF ORMED BY: [address] [place] [address] PATHOLOGIST SITE AUDITOR GLORIA DOWNEY M.D. Performed By: #### C BC, TSH3 wRFLX, CMP, FE and TIBC #### [facility] [address] [place], [place] [id number] [facility] Vital Signs Date Time Vital Sign Value Performing Clinician Faci lity 02-06-2023 12:18-0500 Body height 175.26 cm Services [employer] Work Phone: [facility] 02-06-2023 12:18-0500 Body temperature 98.4 [degF] Services [facility] Work Phone: [facility] 02-06-2023 12:18-0500 Body weight 114.75 kg Services [employer] Work Phone: [facility] 02-06-2023 12:18-0500 Diastolic blood pressure 90 mm[Hg] Services [employer] Work Phone: [facility] 02-06-2023 12:18-0500 Heart rate 86 /min [facility] [employer] Work Phone: [facility] 02-06-2023 12:18-0500 Respiratory rate 20 /min [facility] [employer] Work Phone: [facility] 02-06-2023 12:18-0500 SaO2% (BldA) [Mass fraction] 100 % Services [employer] Work Phone: [facility] 02-06-2023 12:18-0500 Systolic blood pressure 161 mm[Hg] Services [facility] Work Phone: [facility] Encounters Encounter Date Encounter Type Care Provider Facility Start: 02-05-2024 End: 02-05-2024 ambulatory PHILLIP BOGGS Not Available Start: 11-27-2023 End: 11-28-2023 ambulatory PHILLIP BOGGS Not Available Start: 11-06-2023 End: 11-06-2023 ambulatory PHILLIP BOGGS Not Available Start: 02-06-2023 End: 02-07-[address] DOCTOR TRINH Facility:[facility] Start: 02-06-2023 End: 02-06-2023 Emergency department patient visit Maurisio Parks Facility:[facility] Start: 02-06-2023 End: 02-06-2023 Emergency department patient visit Services Family [facility] Work Phone: [facility] Work Phone: Start: 12-10-2022 ambulatory Facility:[id number] Start: 12-04-2022 End: 12-04-2022 ambulatory Emily Mcclelland Facility:[facility] Start: 12-04-2022 End: 12-04-2022 ambulatory Services [facility] Work Phone: [facility] Work Phone: Start: 12-04-2022 End: 12-04-2022 Patient encounter procedure Services [facility] Work Phone: [facility]-Electrodiagnostic s Work Phone: Start: 06-05-2022 End: 06-05-2022 ambulatory Jose A Govea Facility:[facility] Start: 05-31-2022 End: 05-31-2022 ambulatory Jose A Xuan Facility:[facility] Start: 05-31-2022 Encounter for other preprocedural examination Jose A Ckankit [facility] Start: 04-23-2022 End: 04-23-2022 ambulatory Services [facility] Facility:[facility] Start: 03-26-2022 End: 03-26-2022 ambulatory Services [facility] Facility:[facility] Start: 03-20-2022 End: 03-20-2022 ambulatory Services [facility] Facility:[facility] Plan of Treatment Date Care Activity Detail Author Start: 03-09-2023 Blood chemistry [facility] Start: 02-06-2023 [facility] Anion gap measurement [facility] Basophils [#/volume] in Blood by Automated count [facility] Basophils/100 leukoc ytes in Blood by Automated count [facility] Eosinophils [#/volume] in Blood [facility] Eosinophils/100 leuk ocytes in Blood by Automated count [facility] Erythrocyte distribu tion width [Ratio] by Automated count [facility] Erythrocytes [#/volume] in Blood [facility] Hematocrit [Volume F raction] of Blood [facility] Hemoglobin [Mass/vol ume] in Blood [facility] Leukocytes [#/volume ] corrected for nucleated erythrocytes in Blood by Automated coun [facility] Leukocytes [#/volume] in Blood [facility] Lymphocytes [#/volum e] in Blood by Automated count [facility] Lymphocytes/100 leuk ocytes in Blood by Automated count [facility] MCH [Entitic mass] b y Automated count [facility] MCHC [Mass/volume] b y Automated count [facility] MCV [Entitic volume] by Automated count [facility] Monocytes [#/volume] in Blood by Automated count [facility] Monocytes/100 leukoc ytes in Blood by Automated count [facility] Neutrophils [#/volum e] in Blood by Automated count [facility] Neutrophils/100 leuk ocytes in Blood by Automated count [facility] Nucleated erythrocyt es [Presence] in Blood by Automated count [facility] Patient referral [facility] Work Phone: Platelet mean volume [Entitic volume] in Blood by Automated count [facility] Platelets [#/volume] in Blood [facility] Payers Date Payer Category Payer Medicaid [id number] 2022 Self-pay [id number] 1990 Unknown [id number] 2.16. [id number] 1990 Unknown [id number] 2.16.84 [id number] 1990 Unknown [id number] 2.16.84 [id number] 1990 Unknown [id number] 2.16.840 .1.485712.3.579.2.1259 1990 Unknown [id number] 2.16.840 .[id number] 1959 Medicaid [id number] 0d [id number] Unknown [id number] 2.16.8 40.1.538608.3.579.2.531 Unknown [id number] 2.16.8 40.1.116346.3.579.2.531 Unknown [id number] 2.16.8 40.1.793368.3.579.2.531 Unknown [id number] 2.16.8 40.1.064850.3.579.2.531 Unknown [id number] 2.16.8 40.1.862034.3.579.2.531 Unknown [id number] 2.16.8 40.1.049745.3.579.2.531 Unknown [id number] 2.16.8 [id number] Social History Date Type Detail Facility Start: 02-06-2022 Tobacco smoking stat [facility] Ex-smoker (finding) [facility] Start: 1990 Sex Assigned At Female F [facility] Start: 02-06-2023 Tobacco smoking stat [facility] Smoker (finding) [facility] Evaluation note Note Date & Type Note Facility Evaluation note No assessment information availa [facility] Work Phone: Chief Complaint and Reason for Visit Chief Complaint Chest Pain Chief Complaint Chest Pain rt side pain Advance Directives No Advanced Directives Records Found Advance Directive Response Recorded Date/ Time Advance Directives No August 3:47pm Summary Purpose Family History No Family History Records Found Additional Source Comments Care Teams (unrecognized sec tion and content) Team Status: Inactive Member Role Status Dates Emily Mcclelland APRN NETWORK SECURITY ADMINISTRATOR-C Attending Provider Active Services Family [facility] Primary Care Provider Active Team Status: Active Member Role Status Dates Services Family [facility] Primary Care Provider Active Team Status: Inactive Member Role Status Dates Services [facility] Primary Care Provider Active Maurisio Parks , DO Emergency Provider Active Goals (unrecognized section and content) Goals may be documented in a n alternate sectionGoals may be documented in an alternate section INFORMATION SOURCE (unrecogn ized section and content) DATE CREATED AUTHOR 12/18/2022 [facility] DATE CREATED AUTHOR AUTHOR'S ORGANIZ ATION 02/15/2023 [facility] DATE CREATED AUTHOR AUTHOR'S ORGANIZ ATION 03/31/2023 [facility] DATE CREATED AUTHOR AUTHOR'S ORGANIZ ATION 02/07/2024 [facility] EPIC FOR RECORDS PERTAINING TO PATIENTS WHO ARE OR HAVE BEEN ENROLLED IN A CHEMICAL DEPENDENCY/SUBSTANCEABUSE PROGRAM, SOME INFORMATION MAY BE OMITTED. This clinical summary was aggregated from multiple sources. Caution should be exercised in using it in the provision of clinical care. This summary normalizes information from multiple sources, and as a consequence, information in this document may materially change the coding, format and clinical context of patient data. In addition, data may be omitted in some cases. CLINICAL DECISIONS SHOULD BE BASED ON THE PRIMARY CLINICAL RECORDS. [facility]. provides no warranty or guarantee of the accuracy or completeness of information in this document.
[2024-02-20 17:36] VITALS: BP 150/83; PULSE 75; RESP 18; TEMP 36.7; O2SAT 98; BMI 37.4
--- NOTE | 2024-02-20 18:05 | ED.GENADUL1 ---
HPI - General Adult General Chief complaint: Fever Stated complaint: Vomiting Time Seen by Provider: 02/20/24 17:59 Source: patient Mode of arrival: walk-in History of Present Illness HPI narrative: Patient is a 33-year-old female who presents to the Emergency department for a 1 day history of flulike illness. She reports temperatures as high as 101 point something 1 hour ago and states she took Motrin. She states she has had vomiting throughout the day, she tolerated Motrin prior to arrival with no difficulty. No diarrhea. She reports headache, body aches, sore throat, congestion, ear pain. She denies any sputum production with coughing. No concern for . Related Data Previous Rx's ?Medication ?Instructions ?Recorded ibuprofen 800 mg tablet 800 mg PO Q8H PRN pain #20 tabs 11/04/23 ondansetron 4 mg disintegrating 4 mg PO Q6H PRN nausea and 11/04/23 tablet vomiting #20 tabs [id number]-bjdcuorlirmphfv-LV 10 ml PO Q6H PRN cold symptoms 02/20/24 2 mg-30 mg-10 mg/5 mL oral syrup #200 mL (Bromfed DM) ondansetron 4 mg disintegrating 4 mg PO Q6H PRN nausea and 02/20/24 tablet vomiting #12 tabs Allergies Allergy/AdvReac Type Severity Reaction Status Date / Time codeine Allergy Severe Hives Verified 11/04/23 18:03 Review of Systems ROS Constitutional Reports: fever; Denies: chills Ears, nose, mouth, and throat Reports: throat pain and nasal congestion Cardiovascular Denies: chest pain Respiratory Reports: cough; Denies: shortness of breath Gastrointestinal Reports: nausea and vomiting Musculoskeletal Denies: back pain Integumentary/Breast Denies: rash Neurological Reports: headache Hematologic/Lymphatic Denies: easy bruising or easy bleeding Exam Narrative Exam Narrative: Gen.: Awake, alert, in no distress Head: Normocephalic, atraumatic ENT: Moist mucous membranes, No pharyngeal erythema, airway widely open and patent with clear speech. Bilateral TMs bulging, no erythema or injection. Respiratory: No respiratory distress, lungs clear bilaterally Cardio: Regular rate and rhythm Extremities: Moves extremities equally Psych: Normal mood and affect Neuro: No focal neuro deficit Skin: Warm, dry, intact Constitutional Vital Signs, click to edit/add: Last Vital Signs Temp 98.1 F 02/20/24 17:36 Pulse 75 02/20/24 17:36 Resp 18 02/20/24 17:36 BP 150/83 H 02/20/24 17:36 Pulse Ox 98 02/20/24 17:36 O2 Del Method Room Air 02/20/24 17:36 Course Vital Signs Vital signs: Vital Signs Temperature 98.1 F 02/20/24 17:36 Pulse Rate 75 02/20/24 17:36 Respiratory Rate 18 02/20/24 17:36 Blood Pressure 150/83 H 02/20/24 17:36 Pulse Oximetry 98 02/20/24 17:36 Oxygen Delivery Method Room Air 02/20/24 17:36 Temperature 98.1 F 02/20/24 17:36 Pulse Rate 75 02/20/24 17:36 Respiratory Rate 18 02/20/24 17:36 Blood Pressure 150/83 H 02/20/24 17:36 Pulse Oximetry 98 02/20/24 17:36 Oxygen Delivery Method Room Air 02/20/24 17:36 Medical Decision Making MDM Narrative Medical decision making narrative: Patient inquires if she will be Receiving IV fluids. She was treated with Zofran in the ER, tolerated Decadron with no difficulty and has stable vital signs. She has had symptoms for 1 day. No indication for IV fluids at this time. She will be discharged home with Bromfed-DM and Zofran. Follow-up with PCP and return to the emergency department if symptoms change or worsen. COVID and flu testing is negative. We were not able to test the patient for strep but she was not able to tolerate the swab after multiple attempts. Medical Records Medical records reviewed: Yes I reviewed the patient's medical records Lab Data Lab results reviewed: Yes I reviewed the patient's lab results Labs: Lab Results 02/20/24 Range/Units 17:51 Influenza Type A Ag Negative Influenza Type B Ag Negative SARS-CoV-2 Ag (CV2AG) Negative (NEGATIVE) Discharge Plan Discharge Stand Alone Forms: Portal Instructions Chief Complaint: Fever Clinical Impression: Acute upper respiratory infection, Viral infection Patient Disposition: Home, Self-Care Time of Disposition Decision: 18:24 Condition: Good Prescriptions / Home Meds: New sokvmguifmbdylq-rfhixfdsx-ER [Bromfed DM] 2-30-10 mg/5 mL syrup 10 ml PO Q6H PRN (Reason: cold symptoms) Qty: 200 0RF ondansetron 4 mg tablet,disintegrating 4 mg PO Q6H PRN (Reason: nausea and vomiting) Qty: 12 0RF No Action ibuprofen 800 mg tablet 800 mg PO Q8H PRN (Reason: pain) Qty: 20 0RF ondansetron 4 mg tablet,disintegrating 4 mg PO Q6H PRN (Reason: nausea and vomiting) Qty: 20 0RF Print Language: Vietnamese Instructions: Upper Respiratory Infection (ED), Viral Syndrome (ED) Referrals: Physician,Non-Staff, MD [Primary Care Provider] - 1 week Discharge Date/Time: 02/20/24 18:42
[2024-02-20] MEDS: ONDANSETRON 4 MG RAPDIS TABLET SL (18:13)
[2024-02-20 18:21] LABS: Influenza Virus A Antigen Negative; Influenza Virus B Antigen Negative; Internal Control Within Normal Limits; SARS-CoV-2 Ag NEGATIVE (NEGATIVE)
[2024-02-20] MEDS: DEXAMETHASONE SOD PHOS 10 MG/ML VIAL PO (18:40)
== END 2024-02-20 18:42 | disposition home or self-care (01) ==
PROVIDERS: Emergency Provider Emergency Medicine
DX: J06.9 Acute upper respiratory infection, unspecified (principal); Z20.822 Contact with and (suspected) exposure to COVID-19
CPT/HCPCS: 87804; 87811; 87880; 99283; J1100

== ENCOUNTER 2024-05-11 20:07 | Emergency (ER) | payer OTHER, SELFPAY ==
[2024-05-11 20:12] VITALS: BP 136/85; PULSE 84; TEMP 36.8; O2SAT 97; BMI 36.6
--- OUTSIDE RECORDS SUMMARY | 2024-05-11 20:16 | XMS_ITS | CCD ---
Author Organization [facility] Care Team Providers Care Sleeping Car Service Attendant Name Role Phone ROLANDO Mcclelland Attending Provider [facility] Primary Care Provider 1( [phone] DO Maurisio Parks [facility] Primary Care Unavailable NADIR ., DR CARMEN Zaidi Attending Unavaila ble GRSAVANA ., DR CARMEN Zaidi Consulting Unavaila ble GRSAVANA ., DR CARMEN Zaidi Admitting Unavaila ble HAY ., DR SMITH Consulting Unavailable OZ RICCI Consulting Unavailable MAISHA II, DANILO Consulting Unavailable PHILLIP BOGGS Referring Unavailable PHILLIP BOGGS Attending Unavailable [facility] Primary Care Provider MD Diana Archer Emergency Provider [facility] Unavailable Diana Archer Attending Unavailable Allergies Allergy Classification Reported Allergen(s) Allergy Type Date of Onset Reaction(s) Facility (5 sources) Codeine; Translations: [Codeine] Drug Allergy 04-17-2013 [facility] (5 sources) HYDROcodone; Translations: [Hydrocodone] Drug Allergy 01-26-2022 [facility] Medications Current Medications Medication Drug Class(es) Dates Sig (Normalized) Sig (Original) aspirin 81 mg chewable tablet (3 sources) Platelet Aggregation Inhibitor, Nonsteroidal Anti-inflammatory Drug Start: 08-02-2017 take 1 tablet by mouth once daily Aspirin (Aspirin Childrens) 81 mg Tablet,Chewable Active 81 MG PO Daily August 02, 2017 12:00am cephalexin 500 mg oral capsule (4 sources) Cephalosporin Antibacterial Start: 05-10-2024 take 500 mg by mouth twice daily Cephalexin Active 500 MG PO Twice daily 14 May 10, 2024 12:00am Start: 01-26-2022 End: 02-06-2022 take 500 mg by mouth twice daily Cephalexin Discontinued 500 MG PO Twice daily 14 January 26, 2022 1:00am February 06, 2022 7:21am Ciprofloxacin / Dexamethasone (1 source) Corticosteroid, Quinolone Antimicrobial Start: 05-10-2024 Ciprofloxacin-Dexamethasone Active 4 DROPS EAR-RIGHT Twice daily 7.5 May 10, 2024 12:00am 24 hr metFORMIN hydrochloride 500 mg extended release oral tablet (2 sources) Biguanide Start: 02-06-2023 take 500 mg by mouth once daily Metformin Active 500 MG PO Daily February 06, 2023 1:00am ondansetron 4 mg disintegrating oral tablet (7 sources) Serotonin-3 Receptor Antagonist Start: 05-10-2024 take 4 mg by mouth every eight hours Ondansetron Active 4 MG PO Every 8 hours 9 3 May 10, 2024 12:00am Start: 09-29-2017 End: 10-04-2017 take 1 tablet by mouth every eight hours Ondansetron Hcl (Zofran) 4 mg tablet Discontinued 4 MG PO Q8H 15 September 29, 2017 12:00am October 04, 2017 12:04am Start: 08-03-2017 End: 09-28-2017 take 1 tablet by mouth every eight hours Ondansetron (Zofran Odt) 4 mg tablet,disintegrating Discontinued 4 MG PO Q8H August 03, 2017 12:00am September 28, 2017 9:49pm Completed/Discontinued Medications Medication Drug Class(es) Dates Sig (Normalized) Sig (Original) acetaminophen 325 mg / oxyCODONE hydrochloride 5 mg oral tablet (3 sources) Opioid Agonist Start: 02-06-2022 End: 02-06-2023 take 1-2 tablets by mouth every six hours as needed for pain Oxycodone-Acetamin ophen (Percocet) 5-325 mg tablet Discontinued 1 TAB PO Q6H 12 February 06, 2022 February 06, 2023 1:18pm May take 1-2 tabs q 6 hours prn pain [id number] 200 actuat albuterol 0.09 mg/actuat metered dose inhaler (3 sources) beta2-Adrenergic Agonist Start: 03-21-2018 End: 04-24-2018 Albuterol Sulfate Discontinued 2 INH INHALATION Q4H 8 March 21, 2018 12:00am April 24, 2018 4:56pm administer with spacer dextromethorphan hydrobromide 3 mg/ml / promethazine hydrochloride 1.25 mg/ml oral solution (3 sources) Phenothiazine, Uncompetitive M-xbmsdz-Y-aspartat e Receptor Antagonist, Sigma-1 Agonist Start: 03-21-2018 End: 04-24-2018 take 1 mL by mouth every four to six hours Promethazine-Dm Discontinued 5 ML PO EVERY 4-6 HOURS March 21, 2018 12:00am April 24, 2018 4:56pm hydrocortisone acetate 25 mg rectal suppository (3 sources) Corticosteroid Start: 05-16-2019 End: 09-12-2019 Hydrocortisone Acetate (Anusol-Hc) 25 mg suppository Discontinued 25 MG AR Twice daily May 16, 2019 12:00am September 12, 2019 10:39pm ibuprofen 600 mg oral tablet (6 sources) Nonsteroidal Anti-inflammatory Drug Start: 02-06-2022 End: 02-06-2023 Ibuprofen Discontinued 600 MG PO Every 6 hours February 06, 2022 1:00am February 06, 2023 1:18pm do not exceed 4 doses in a 24 hour period Start: 07-19-2021 End: 02-06-2022 take 800 mg by mouth every six hours Ibuprofen Discontinued 800 MG PO Q6H July 19, 2021 12:00am February 06, 2022 7:21am loperamide hydrochloride 2 mg oral capsule (3 sources) Opioid Agonist Start: 08-03-2017 End: 09-28-2017 Loperamide (Imodium A-D) 2 mg capsule Discontinued 2 MG PO Q1H August 03, 2017 12:00am September 28, 2017 9:49pm after each loose stool until symptoms controlled; do not exceed 8 mg total dose in 24 hrs Mouthwashes (3 sources) Start: 05-14-2020 End: 07-19-2021 Mouthwashes Discontinued 1 SPRAY MUCOUS MEM Daily 72 May 14, 2020 12:00am July 19, 2021 9:14am Start: 05-14-2020 End: 07-19-2021 Mouthwashes Discontinued 1 S PRAY MUCOUS MEM Daily May 13, 2020 11:00pm July 19, 2021 8:14am naproxen 500 mg oral tablet (6 sources) Nonsteroidal Anti-inflammatory Drug Start: 04-24-2018 End: 05-16-2019 take 1 tablet by mouth twice daily Naproxen (Naprosyn) 500 mg tablet Discontinued 500 MG PO Twice daily March 07, 2019 12:00am May 16, 2019 1:14am nitrofurantoin, macrocrystals 25 mg / nitrofurantoin, monohydrate 75 mg oral capsule (3 sources) Nitrofuran Antibacterial Start: 12-01-2018 End: 03-06-2019 take 1 capsule by mouth twice daily at mealtime Nitrofurantoin Monohyd/M-Cryst (Macrobid) 100 mg capsule Discontinued 100 MG PO Twice daily December 01, 2018 1:00am March 06, 2019 11:08pm must administer with a meal/food penicillin v potassium 500 mg oral tablet (3 sources) Start: 04-24-2018 End: 03-06-2019 take 500 mg by mouth four times daily Penicillin V Potassium Discontinued 500 MG PO Four times daily April 24, 2018 12:00am March 06, 2019 11:08pm predniSONE 20 mg oral tablet (3 sources) Start: 03-21-2018 End: 03-26-2018 take 60 mg by mouth once daily at mealtime Prednisone Discontinued 60 MG PO Daily 15 March 21, 2018 12:00am March 26, 2018 12:01am administer with food or milk promethazine hydrochloride 12.5 mg oral tablet (3 sources) Phenothiazine Start: 09-29-2017 End: 03-21-2018 take 12.5 mg by mouth every six hours Promethazine Discontinued 12.5 MG PO Q6H September 29, 2017 12:00am March 21, 2018 10:42pm Problems Problem Classification Problem Date Documented Da te Episodic/Chronic Abdominal pain (3 sources) Right lower quadrant pain; Translations: [RIGHT LOWER QUADRANT PAIN] Onset: 3 Episodic Acute bronchitis (3 sources) Acute bronchitis; Translations: [Acute bronchitis, unspecified] 03-21-2018 Episodic Appendicitis and other appendiceal conditions (1 source) Unspecified acute appendicitis; Translations: [UNSPECIFIED ACUTE APPENDICITIS] Onset: 3 Episodic Diabetes mellitus without complication (1 source) Type 2 diabetes mellitus without complications; Translations: [TYPE 2 DM WITHOUT COMPLICATIONS] Onset: 3 Chronic Diseases of mouth; excluding dental (3 sources) Aphthous ulcer of mouth; Translations: [Recurrent oral aphthae] 05-14-2020 Episodic Gastrointestinal hemorrhage (3 sources) Gastrointestinal hemorrhage; Translations: [Hemorrhage of anus and rectum] 05-16-2019 Episodic Genitourinary symptoms and ill-defined conditions (3 sources) Blood in urine; Translations: [Hematuria, unspecified] 01-26-2022 Episodic Lymphadenitis (3 sources) Lymphadenopathy; Translations: [Generalized enlarged lymph nodes] 07-19-2021 Episodic Nausea and vomiting (6 sources) Nausea, vomiting and diarrhea; Translations: [Nausea with vomiting, unspecified] 09-29-2017 Episodic Other aftercare (1 source) 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; Translations: [[facility] USE ORAL HYPOGLYCEMIC DX] Onset: 3 Episodic Other ear and sense organ disorders (1 source) Otitis externa; Translations: [Unspecified otitis externa, unspecified ear] 05-10-2024 Chronic Other gastrointestinal disorders (3 sources) Diarrhea; Translations: [Diarrhea, unspecified] 05-16-2019 Episodic Other nervous system disorders (3 sources) Acute postoperative pain; Translations: [Other acute [...] DEPEND] Onset: 3 Episodic Superficial injury; contusion (3 sources) Contusion of hand; Translations: [Contusion of left hand, initial encounter] 09-12-2019 Episodic Unclassified (1 source) CONTACT W/AND (SUSP) EXPOS COVID-19; Translations: [CONTACT W/AND (SUSP) EXPOS COVID-19] Onset: 3 Urinary tract infections (4 sources) Urinary tract infectious disease; Translations: [Urinary tract infection, site not specified] 01-26-2022 Episodic Viral infection (3 sources) Acute viral disease; Translations: [Viral infection, unspecified] 09-29-2017 Episodic Results Test Name Value Interpretation Reference Range Facility Alanine aminotransferase [En zymatic activity/volume] in Serum or PlasmaOrdered By: Diana Archer on 05-10-2024 ALT [Catalytic activity/Vol] 17 U/L Normal 7-52 [facility] Comment on above: Performed By: #### C MP, CBC #### [facility] [address] [place] [address] [place] Albumin [Mass/volume] in Ser um or Plasma by Bromocresol green (BCG) dye binding methoOrdered By: Diana Archer on 05-10-2024 Albumin BCG dye [Mass/Vol] 4.2 g/dL 3.5-5.7 [facility] Alkaline phosphatase [Enzyma tic activity/volume] in Serum or PlasmaOrdered By: Diana Archer on 05-10-2024 ALP [Catalytic activity/Vol] 60 U/L Normal 34-104 [facility] Comment on above: Performed By: #### C MP, CBC #### [facility] [address] [place] [address] [place] Aspartate aminotransferase [ Enzymatic activity/volume] in Serum or PlasmaOrdered By: Diana Archer on 05-10-2024 AST [Catalytic activity/Vol] 15 U/L Normal 13-39 [facility] Comment on above: Performed By: #### C MP, CBC #### [facility] [address] [place] [address] [place] Automated basophil %Ordered By: Diana Archer on 05-10-2024 Basophils/100 WBC (Bld) 0.5 % Normal . [facility] Comment on above: Performed By: #### C MP, CBC #### [facility] [address] [place] [address] [place] Automated basophil countOrde red By: Diana Archer on 05-10-2024 Basophils (Bld) [#/Vol] 0.0 10*3/uL Normal 0.0-0.2 [facility] Comment on above: Result Comment: PERF ORMED BY: [place] [address] PATHOLOGIST POLYSTYRENE MOLDING MACHINE TENDER GLORIA DOWNEY M.D. Performed By: #### C MP, CBC #### [address] Automated blood monocyte cou ntOrdered By: Diana Archer on 05-10-2024 Monocytes (Bld) [#/Vol] 0.5 10*3/uL Normal 0.0-0.8 [facility] Comment on above: Performed By: #### C MP, CBC #### [address] Automated eosinophil %Ordere d By: Diana Archer on 05-10-2024 Eosinophils/100 WBC (Bld) 0.6 % Normal . [facility] Comment on above: Performed By: #### C MP, CBC #### [address] Automated eosinophil countOr dered By: Diana Archer on 05-10-2024 Eosinophils (Bld) [#/Vol] 0.0 10*3/uL Normal 0.0-0.45 [facility] Comment on above: Performed By: #### C MP, CBC #### [address] Automated monocyte %Ordered By: Diana Archer on 05-10-2024 Monocytes/100 WBC (Bld) 7.3 % Normal . [facility] Comment on above: Performed By: #### C MP, CBC #### [address] Automated neutrophil %Ordere d By: Diana Archer on 05-10-2024 Neutrophils/100 WBC (Bld) 62.8 % Normal . [facility] Comment on above: Performed By: #### C MP, CBC #### [place] [address] [place] Bacteria [Presence] in Urine by AutomatedOrdered By: Diana Archer on 05-10-2024 Bacteria Auto Ql (U) 1+ [HPF] None Seen [facility] Bilirubin Test strip Ql (U)O rdered By: Diana Archer on 05-10-2024 Bilirubin Ql (U) Negative Negative [facility] Bilirubin.total [Mass/volume ] in Serum or PlasmaOrdered By: Diana Archer on 05-10-2024 Bilirubin [Mass/Vol] 0.7 mg/dL Normal 0.3-1.0 [facility] Comment on above: Performed By: #### C MP, CBC #### [facility] [address] [place] [address] [place] Calcium [Mass/volume] in Ser um or PlasmaOrdered By: Diana Archer on 05-10-2024 Calcium [Mass/Vol] 9.3 mg/dL Normal 8.6-10.3 [facility] Comment on above: Performed By: #### C MP, CBC #### [facility] [address] [place] [address] [place] Carbon dioxide, total [Moles /volume] in Serum or PlasmaOrdered By: Diana Archer on 05-10-2024 CO2 [Moles/Vol] 25.4 mmol/L Normal 21.0-31.[address] [facility] Comment on above: Performed By: #### C MP, CBC #### [facility] [address] [place], [place] [id number] [place] Chloride [Moles/volume] in S alanna or PlasmaOrdered By: Diana Archer on 05-10-2024 Chloride [Moles/Vol] 108 mmol/L High 98-107 [facility] Comment on above: Performed By: #### C MP, CBC #### [facility] [address] [place], [place] [id number] [place] Color of Urine by AutoOrdere d By: Diana Archer on 05-10-2024 Color (U) Light-yellow Normal Yellow [facility] Comment on above: Order Comment: Name Collection Type:: Clean-Voided Midstream Performed By: #### A FIDENCIO REY #### [address] Complete Blood Count Auto Di ffon 05-10-2024 Mean Corpuscular HGB Conc 34.2 g/dL Normal 32.0-35.0 [facility] Comment on above: Performed By: #### C MP, CBC #### [place] [address] [place] Monocytes/100 WBC (Bld) 19.95 % Normal 0.00-20.00 [facility] Comment on above: Performed By: #### C MP, CBC #### [place] [address] [place] NRBC% 0.2 /100{WBC} Normal 0-0.5 [facility] Comment on above: Performed By: #### C MP, CBC #### [address] Comprehensive Metabolic Pane wilmar 05-10-2024 Albumin [Mass/Vol] 4.2 g/dL Normal 3.5-5.7 [facility] Comment on above: Performed By: #### C MP, CBC #### [place] [address] [place] Creatinine Clr Calc Pharmacy 159.61 Normal [facility] Comment on above: Result Comment: PERF ORMED BY: [place] [address] PATHOLOGIST POLYSTYRENE MOLDING MACHINE TENDER GLORIA DOWNEY M.D. Performed By: #### C MP, CBC #### [place] [address] [place] GFR/1.73 sq M.predicted MDRD (S/P/Bld) [Vol rate/Area] mL/min/{1.73_m2} Normal [facility] Comment on above: Performed By: #### C MP, CBC #### [place] [address] [place] Creatinine [Mass/volume] in Serum or PlasmaOrdered By: Diana Archer on 05-10-2024 Creatinine [Mass/Vol] 0.67 mg/dL Normal 0.60-1.20 [facility] Comment on above: Performed By: #### C MP, CBC #### [place] [address] [place] Dipstick and Microscopicon 0 05-10-2024 Bacteria,Urine 1+ High None Seen [facility] Comment on above: Order Comment: Name Collection Type:: Clean-Voided Midstream Performed By: #### A DDONUAPLUS, CUU #### [place] [address] [place] Bilirubin,Urine Negative Normal Negative [facility] Comment on above: Order Comment: Name Collection Type:: Clean-Voided Midstream Performed By: #### A DDONUAPLUS, CUU #### [address] Glucose Ql (U) Normal Normal Normal [facility] Comment on above: Order Comment: Name Collection Type:: Clean-Voided Midstream Performed By: #### A DDONUAPLUS, CUU #### [place] [address] [place] Hyaline Casts,Urine None Normal 0-8 [facility] Comment on above: Order Comment: Name Collection Type:: Clean-Voided Midstream Performed By: #### A DDONUAPLUS, CUU #### [place] [address] [place] Mucus,Urine Rare Normal [facility] Comment on above: Order Comment: Name Collection Type:: Clean-Voided Midstream Result Comment: PERF ORMED BY: [place] [address] PATHOLOGIST POLYSTYRENE MOLDING MACHINE TENDER GLORIA DOWNEY M.D. Performed By: #### A DDONUAPLUS, CUU #### [place] [address] [place] Nitrite,Urine Negative Normal Negative [facility] Comment on above: Order Comment: Name Collection Type:: Clean-Voided Midstream Performed By: #### A DDONUAPLUS, CUU #### [place] [address] [place] Occult Blood,Urine Negative Normal Negative [facility] Comment on above: Order Comment: Name Collection Type:: Clean-Voided Midstream Result Comment: PERF ORMED BY: [place] [address] PATHOLOGIST POLYSTYRENE MOLDING MACHINE TENDER GLORIA DOWNEY M.D. Performed By: #### A DDONUAPLUS, CUU #### [address] Protein,Urine Negative Normal Negative [facility] Comment on above: Order Comment: Name Collection Type:: Clean-Voided Midstream Performed By: #### A DDONUAPLUS, CUU #### [place] [address] [place] RBC,Urine 5-9 High 0-4 [facility] Comment on above: Order Comment: Name Collection Type:: Clean-Voided Midstream Performed By: #### A DDONUAPLUS, CUU #### [place] [address] [place] Specificy Lacey,Urine 1.013 Normal 1.001-1.030 [facility] Comment on above: Order Comment: Name Collection Type:: Clean-Voided Midstream Performed By: #### A DDONUAPLUS, CUU #### [address] Squamous Epithelial Cell,Urine 10-19 High 0-2 [facility] Comment on above: Order Comment: Name Collection Type:: Clean-Voided Midstream Performed By: #### A DDONUAPLUS, CUU #### [place] [address] [place] Urobilinogen,Urine Normal Normal Normal [facility] Comment on above: Order Comment: Name Collection Type:: Clean-Voided Midstream Performed By: #### A DDONUAPLUS, CUU #### [place] [address] [place] WBC,Urine 5-9 High 0-4 [facility] Comment on above: Order Comment: Name Collection Type:: Clean-Voided Midstream Performed By: #### A DDONUAPLUS, CUU #### [facility] [address] Epithelial cells.squamous [# /area] in Urine sediment by Automated countOrdered By: Diana Archer on 05-10-2024 Epithelial cells.squamous Auto (Urine sed) [#/Area] 10-19 [HPF] 0-2 [facility] Erythrocyte distribution wid th [Ratio] by Automated countOrdered By: Diana Archer on 05-10-2024 Erythrocyte distribution width (RBC) [Ratio] 13.6 % Normal 11.9-15.3 [facility] Comment on above: Performed By: #### C MP, CBC #### [facility] [address] [place] [address] [place] Erythrocytes [#/area] in Uri ne sediment by Automated countOrdered By: Diana Archer on 05-10-2024 RBC Auto (Urine sed) [#/Area] 5-9 [HPF] 0-4 [facility] Erythrocytes [#/volume] in B lood by Automated countOrdered By: Diana Archer on 05-10-2024 RBC (Bld) [#/Vol] 4.88 10*6/uL Normal 3.60-5.00 [facility] Comment on above: Performed By: #### C MP, CBC #### [facility] [address] [place] [address] [place] Glucose [Mass/volume] in Ser um or PlasmaOrdered By: Diana Archer on 05-10-2024 Glucose [Mass/Vol] 82 mg/dL Normal 70-100 [facility] Comment on above: ADA recommended refe rence rangeRandom Glucose Reference Range is dependent on time and content of last meal. Glucose of more than 200 mg/dL in a nonstressed, ambulatory subject supports the diagnosis of Diabetes Mellitus. Result Comment: [place] om Glucose Reference Range is dependent on time and content of last meal. Glucose of more than 200 mg/dL in a nonstressed, ambulatory subject supports the diagnosis of Diabetes Mellitus. ADA recommended reference range Performed By: #### C MP, CBC #### [facility] [address] [place] [address] [place] Glucose [Mass/volume] in Uri ne by Test stripOrdered By: Diana Archer on 05-10-2024 Glucose Test strip (U) [Mass/Vol] Normal mg/dL Normal [facility] Hematocrit [Volume Fraction] of Blood by Automated countOrdered By: Diana Archer on 05-10-2024 Hematocrit (Bld) [Volume fraction] 39.6 % Normal 34.0-46.4 [facility] Comment on above: Performed By: #### C MP, CBC #### [facility] [address] [place] [address] [place] Hemoglobin Test strip Ql (U) Ordered By: Diana Archer on 05-10-2024 Hemoglobin Ql (U) Negative Negative [facility] Hemoglobin [Mass/volume] in BloodOrdered By: Diana Archer on 05-10-2024 Hemoglobin (Bld) [Mass/Vol] 13.5 g/dL Normal 11.8-15.4 [facility] Comment on above: Performed By: #### C MP, CBC #### [place] [address] [place] Hyaline casts [#/area] in Ur ine sediment by Automated countOrdered By: Diana Archer on 05-10-2024 Hyaline casts Auto (Urine sed) [#/Area] None [LPF] 0-8 [facility] Ketones [Presence] in Urine by Test stripOrdered By: Diana Archer on 05-10-2024 Ketones Ql (U) Negative Normal Negative [facility] Comment on above: Order Comment: Name Collection Type:: Clean-Voided Midstream Performed By: #### A DDONUAPLUS, CUU #### [place] [address] [place] Leukocyte esterase [Presence ] in Urine by Test stripOrdered By: Diana Archer on 05-10-2024 Leukocyte esterase Test strip Ql (U) 4+ High Negative [facility] Comment on above: Order Comment: Name Collection Type:: Clean-Voided Midstream Performed By: #### A DDONUAPLUS, CUU #### [place] [address] [place] Leukocytes [#/area] in Urine sediment by Automated countOrdered By: Diana Archer on 05-10-2024 WBC Auto (Urine sed) [#/Area] 5-9 [HPF] 0-4 [facility] Leukocytes [#/volume] correc tiffanie for nucleated erythrocytes in Blood by Automated counOrdered By: Diana Archer on 05-10-2024 WBC corrected for nucl RBC Auto (Bld) [#/Vol] 6.2 10*3/uL 3.8-11.6 [facility] Leukocytes [#/volume] in Blo od by Automated countOrdered By: Diana Archer on 05-10-2024 WBC (Bld) [#/Vol] 6.2 10*3/uL Normal 3.8-11.6 [facility] Comment on above: Performed By: #### C MP, CBC #### [facility] [address] [place] [address] Lipase [Enzymatic activity/v olume] in Serum or PlasmaOrdered By: Diana Archer on 05-10-2024 Lipase [Catalytic activity/Vol] 12.0 U/L Normal 11.0-82.0 [facility] Comment on above: Result Comment: PERF ORMED BY: [place] [address] PATHOLOGIST POLYSTYRENE MOLDING MACHINE TENDER GLORIA DOWNEY M.D. Performed By: #### L IPASE #### [place] [address] [place] Lymphocytes [#/volume] in Bl ood by Automated countOrdered By: Diana Archer on 05-10-2024 Lymphocytes (Bld) [#/Vol] 1.8 10*3/uL Normal 1.00-4.8 [facility] Comment on above: Performed By: #### C MP, CBC #### [facility] [address] [place] [address] [place] Lymphocytes/100 leukocytes i n Blood by Automated countOrdered By: Diana Archer on 05-10-2024 Lymphocytes/100 WBC (Bld) 28.8 % Normal . [facility] Comment on above: Performed By: #### C MP, CBC #### [facility] [address] MCH [Entitic mass] by Automa tiffanie countOrdered By: Diana Archer on 05-10-2024 MCH (RBC) [Entitic mass] 27.8 pg Normal 24.7-34.3 [facility] Comment on above: Performed By: #### C MP, CBC #### [address] MCHC Auto (RBC) [Mass/Vol]Or dered By: Diana Archer on 05-10-2024 MCHC (RBC) [Mass/Vol] 34.2 g/dL 32.0-35.0 [facility] MCV [Entitic volume] by Auto mated countOrdered By: Diana Archer on 05-10-2024 MCV (RBC) [Entitic vol] 81.2 fL Normal 80-100 [facility] Comment on above: Performed By: #### C MP, CBC #### [address] Monocyte distribution width [Entitic volume] in Blood by AutomatedOrdered By: Diana Archer on 05-10-2024 Monocyte distribution width Auto (Bld) [Entitic vol] 19.95 % 0.00-20.00 [facility] Mucus [Presence] in Urine by AutomatedOrdered By: Diana Archer on 05-10-2024 Mucus Auto Ql (U) Rare [LPF] [facility] Neutrophils [#/volume] in Bl ood by Automated countOrdered By: Diana Archer on 05-10-2024 Neutrophils (Bld) [#/Vol] 3.9 10*3/uL Normal 1.8-7.7 [facility] Comment on above: Performed By: #### C MP, CBC #### [address] Nitrite Test strip Ql (U)Ord ered By: Diana Archer on 05-10-2024 Nitrite Ql (U) Negative Negative [facility] No Panel InformationOrdered By: Diana Archer on 06-10-2024 Estimated GFR (CKD-EPI) > 60.0 mL/Min [facility] Creatinine Clearance (Chem 159.61 [facility] Nucleated erythrocytes [Pres ence] in Blood by Automated countOrdered By: Diana Archer on 05-10-2024 Nucleated RBC Auto Ql (Bld) 0.2 /100{WBC} 0-0.5 [facility] Platelet mean volume [Entiti c volume] in Blood by Automated countOrdered By: Diana Archer on 05-10-2024 Platelet mean volume (Bld) [Entitic vol] 6.9 fL Normal 6.3-10.7 [facility] Comment on above: Performed By: #### C MP, CBC #### [facility] [address] [place] [address] [place] Platelets [#/volume] in Bloo d by Automated countOrdered By: Diana Archer on 05-10-2024 Platelets (Bld) [#/Vol] 350 10*3/uL Normal 150-450 [facility] Comment on above: Performed By: #### C MP, CBC #### [facility] [address] [place] [address] [place] Potassium [Moles/volume] in Serum or PlasmaOrdered By: Diana Archer on 05-10-2024 Potassium [Moles/Vol] 3.8 mmol/L Normal 3.5-5.1 [facility] Comment on above: Performed By: #### C MP, CBC #### [place] [address] [place] Protein Test strip (U) [Mass /Vol]Ordered By: Diana Archer on 05-10-2024 Protein (U) [Mass/Vol] Negative Negative [facility] Protein [Mass/volume] in Ser um or PlasmaOrdered By: Diana Archer on 05-10-2024 Protein [Mass/Vol] 7.0 g/dL Normal 6.4-8.9 [facility] Comment on above: Performed By: #### C MP, CBC #### [facility] [address] Serum globulin measurement b y calculation (mass/volume)Ordered By: Diana Archer on 05-10-2024 Globulin (S) [Mass/Vol] 2.8 g/dL Normal [facility] Comment on above: Performed By: #### C MP, CBC #### [address] Serum or plasma albumin/glob ulin mass ratioOrdered By: Diana Archer on 05-10-2024 Albumin/Globulin [Mass ratio] 1.5 {ratio} Normal [facility] Comment on above: Performed By: #### C MP, CBC #### [address] Serum or plasma anion gap de terminationOrdered By: Diana Archer on 05-10-2024 Anion gap [Moles/Vol] 9.4 mmol/L Normal 6.0-15.0 [facility] Comment on above: Performed By: #### C MP, CBC #### [address] Sodium [Moles/volume] in Ser um or PlasmaOrdered By: Diana Archer on 05-10-2024 Sodium [Moles/Vol] 139 mmol/L Normal 136-145 [facility] Comment on above: Performed By: #### C MP, CBC #### [address] Specific gravity Test strip (U) [Rel density]Ordered By: Diana Archer on 05-10-2024 Specific gravity (U) [Rel density] 1.013 1.001-1.030 [facility] US gall bladderon 05-10-2024 US gall bladder [facility] [place] [address] [place] [address] Ultrasound Report Signed Patient: Maria D Engel MR#: [id number] : 1990 Acct:[id number] Age/Sex: 33 / F ADM Date: 05/10/24 Loc: ER Room: Type: [facility] ER Attending Dr: Ordering Provider: Diana Archer MD Date of Service: 05/10/24 US/US gall bladder: RUQ pain, n/v, prior stones Copies to: Diana Archer MD Gallbladder ultrasound HISTORY: RIGHT upper quadrant pain COMPARISON: None Negative ultrasound Mallory's sign reported. COMMON BILE DUCT: Normal caliber. No intraluminal abnormality. LIVER CONTOUR: Normal. LIVER PARENCHYMA: Normal echogenicity HEPATIC LESION: None INTRAHEPATIC BILIARY DUCTAL DILATATION No ductal dilatation identified. GALLSTONES: No shadowing gallstones. GALLBLADDER SLUDGE: No gallbladder sludge. GALLBLADDER WALL: Normal thickness PERICHOLECYSTIC FLUID: None Pancreas: Obscured PORTAL VEIN: Normal blood flow. Liver size: Normal No RIGHT hydronephrosis identified. US/US gall bladder IMPRESSION: Unremarkable exam Impression dictated by: Tommy Myers M.D.05/10/2024 12:28 PM Dictation Location: [place] [address] Tech: Chloé Parry Transcribed By: RAJESH 05/10/24 1228 Dictated By: Tommy Myers DO 05/10/24 1225 Signed By: 05/10/24 1228 Normal [facility] Urea nitrogen [Mass/volume] in Serum or PlasmaOrdered By: Diana Archer on 05-10-2024 Urea nitrogen [Mass/Vol] 9 mg/dL Normal 7- [facility] Comment on above: Performed By: #### C MP, CBC #### [facility] [address] [place] [address] Urine Cultureon 05-10-2024 Bacteria identified Cx Nom (U) 15,000 colonies/ml mixed bacterial skin contaminants 1 Day PERFORMED BY: [place] [address] PATHOLOGIST POLYSTYRENE MOLDING MACHINE TENDER GLORIA DOWNEY M.D. Normal [facility] Comment on above: Performed By: #### A DDTINGUAPB, CUU #### [facility] [address] [place] [address] Urine appearanceOrdered By: Diana Archer on 05-10-2024 Appearance (U) Cloudy Critically abnormal Clear [facility] Comment on above: Order Comment: Name Collection Type:: Clean-Voided Midstream Performed By: #### A DDCUATE, CUU #### [facility] [address] [place] [address] Urobilinogen Test strip (U) [Mass/Vol]Ordered By: Diana Archer on 05-10-2024 Urobilinogen (U) [Mass/Vol] Normal mg/dL Normal [facility] pH of Urine by Test stripOrd ered By: Diana Archer on 05-10-2024 pH (U) 5.5 [pH] Normal 5.0-9.0 [facility] Comment on above: Order Comment: Name Collection Type:: Clean-Voided Midstream Performed By: #### A DDONUAPLUS, CUU #### [facility] [address] BI MAMMOGRAM SCREENING TOMOS YNTHESIS BILATERALon 11-27-2023 BI MAMMOGRAM SCREENING TOMOSYNTHESIS BILATERAL [...] of architectural distortion or suspicious areas of microcalcifications . IMPRESSION: BIRADS 1 - Negative Recommended follow-up: Routine Screening Mamm Board Certified Radiologists. Accredited by the ACR and FDA. MAMMOGRAPHY IS VERY IMPORTANT TO YOUR HEALTH. THE [employer] GUIDELINES RECOMMEND THAT WOMEN 40 [...] Amylase [Catalytic activity/Vol] 41 U/L Normal 25-115 [facility] Comment on above: Performed By: #### L IPA, CMP, CHERRY #### [facility] [address] [place] [address] [address] Kate Oconnor CBC AUTO DIFFon 02-06-2023 BASO # 0.0 103/ul Normal 0.0-0.1 [facility] Comment on above: Performed By: #### C BC #### [facility] [address] [place] [address] [address] Kate Oconnor Basophils/100 WBC (Bld) 0.2 % Normal 0.2-2.0 [facility] Comment on above: Performed By: #### C BC #### [facility] [address] [place] [address] [address] Kate Oconnor EO # 0.1 103/ul Normal 0.0-0.7 [facility] Comment on above: Performed By: #### C BC #### [facility] [address] [place] [address] Dr. Kate Oconnor Eosinophils/100 WBC (Bld) 0.5 % Critically low 0.9-7.0 [facility] Comment on above: Performed By: #### C BC #### [facility] [address] [place] [address] [address] Kate Oconnor Erythrocyte distribution width (RBC) [Ratio] 13.0 % Normal 11.0-15.0 [facility] Comment on above: Performed By: #### C BC #### [facility] [address] [place] [address] Dr. Kate Oconnor Hematocrit (Bld) [Volume fraction] 41.5 % Normal 36.0-48.0 [facility] Comment on above: Performed By: #### C BC #### [facility] [address] [place] [address] [address] Kate Oconnor Hemoglobin (Bld) [Mass/Vol] 13.7 g/dL Normal 12.0-16.0 [facility] Comment on above: Performed By: #### C BC #### [facility] [address] [place] [address] [address] Kate Oconnor IG # 0.05 10e3/ul Critically high 0.00-0.03 [facility] Comment on above: Performed By: #### C BC #### [facility] [address] [place] [address] Dr. Kate Oconnor IG % 0.3 % Normal 0.0-0.5 [facility] Comment on above: Performed By: #### C BC #### [facility] [address] [place] [address] Dr. Kate Oconnor LYMPH # 2.8 103/ul Normal 1.2-3.8 [facility] Comment on above: Performed By: #### C BC #### [facility] [address] [place] [address] Dr. Kate Oconnor Lymphocytes/100 WBC (Bld) 18.6 % Critically low 20.5-60.0 [facility] Comment on above: Performed By: #### C BC #### [facility] [address] [place] [address] Dr. Kate Oconnor MANUAL DIFF REQ NO Normal [facility] Comment on above: Performed By: #### C BC #### [facility] [address] [place] [address] Dr. Kate Oconnor MCH (RBC) [Entitic mass] 27.2 pg Normal 26.7-34.0 [facility] Comment on above: Performed By: #### C BC #### [facility] [address] [place] [address] Dr. Kate Oconnor MCHC (RBC) [Mass/Vol] 33.0 g/dL Normal 29.9-35.2 [facility] Comment on above: Performed By: #### C BC #### [facility] [address] [place] [address] Dr. Kate Oconnor MCV (RBC) [Entitic vol] 82.5 fL Normal 81.0-99.0 [facility] Comment on above: Performed By: #### C BC #### [facility] [address] [place] [address] Dr. Kate Oconnor MONO # 0.9 103/ul Critically high 0.3-0.8 [facility] Comment on above: Performed By: #### C BC #### [facility] [address] [place] [address] [address] Kate Oconnor Monocytes/100 WBC (Bld) 5.7 % Normal 1.7-12.0 [facility] Comment on above: Performed By: #### C BC #### [facility] [address] [place] [address] [address] Kate Oconnor NEUT # 11.2 103/ul Critically high 1.4-6.5 [facility] Comment on above: Performed By: #### C BC #### [facility] [address] [place] [address] [address] Kate Oconnor Neutrophils/100 WBC (Bld) 74.7 % Normal 43.0-75.0 [facility] Comment on above: Performed By: #### C BC #### [facility] [address] [place] [address] Dr. Kate Oconnor Platelet mean volume (Bld) [Entitic vol] 8.9 fL Critically low 9.5-13.5 [facility] Comment on above: Performed By: #### C BC #### [facility] [address] [place] [address] Dr. Kate Oconnor PLT 383 103/ul Normal 150-450 [facility] Comment on above: Performed By: #### C BC #### [facility] [address] [place] [address] Dr. Kate Oconnor RBC 5.03 106/ul Normal 4.20-5.40 [facility] Comment on above: Performed By: #### C BC #### [facility] [address] [place] [address] Dr. Kate Oconnor WBC 15.0 103/ul Critically high 4.0-11.0 [facility] Comment on above: Performed By: #### C BC #### [facility] [address] [place] [address] ABD/PELV W CONon 02-07-[address] ABD/PELV W CON EXAMINATION: CT ABD/PELV W CON HISTORY: Tenderness of right lower quadrant of abdomen COMPARISON: None. TECHNIQUE: CT of abdomen/pelvis with IV and oral contrast. Dose reduction techniques were achieved by using automated exposure control and/or adjustment of mA and/or kV according to patient size and/or use of iterative reconstruction technique. FINDINGS: Electrical Project Manager: No pertinent findings, which are not already [...] OZ RICCI Date: 2023-02-06 17:22 Normal [facility] CULTURE URINEon 02-06-2023 CULTURE URINE Culture Observations: LIGHT GROWTH OF MIXED GENITAL FLORY. NO POTENTIAL PATHOGENS SEEN. Normal [facility] Comment on above: Performed By: #### U RCX #### [facility] [address] [place] [address] Dr. Kate Oconnor [facility]on SARS-CoV-2 (COVID-19) RNA ADRIAN+probe Ql (Unsp spec) Not detected Normal NOT DETECTED [facility] Comment on above: Result Comment: When diagnostic [...] for this test is supported by the Utility Manager of Health and Human Service's declaration that [...] longer be used). Performed By: #### C VDTB #### [facility] [address] [place] [address] Dr. Kate Oconnor ER URINE PROFILEon 3 Bilirubin Ql (U) Negative Normal NEGATIVE [facility] Comment on above: Performed By: #### U MICRO, PREGU, ERUR #### [facility] [address] [place] [address] Dr. Kate Oconnor Clarity (U) CLEAR Normal CLEAR [facility] Comment on above: Performed By: #### U MICRO, PREGU, ERUR #### [facility] [address] [place] [address] Dr. Kate Oconnor Color (U) YELLOW Normal YELLOW [facility] Comment on above: Performed By: #### U MICRO, PREGU, ERUR #### [facility] [address] [place] [address] Dr. Kate Oconnor ERUAHD A micrscopic examination will be performed if indicated. Normal [facility] Comment on above: Performed By: #### U MICRO, PREGU, ERUR #### [facility] [address] [place] [address] Dr. Kate Oconnor Glucose Ql (U) Negative Normal NEGATIVE [facility] Comment on above: Performed By: #### U MICRO, PREGU, ERUR #### [facility] [address] [place] [address] Dr. Kate Oconnor Hemoglobin Ql (U) Negative Normal NEGATIVE [facility] Comment on above: Performed By: #### U MICRO, PREGU, ERUR #### [facility] [address] [place] [address] [address] Kate Oconnor Ketones Ql (U) 40 mg/dl Abnormal NEGATIVE [facility] Comment on above: Performed By: #### U MICRO, PREGU, ERUR #### [facility] [address] [place] [address] [address] Kate Oconnor LEUKOCYTES SMALL Abnormal NEGATIVE [facility] Comment on above: Performed By: #### U MICRO, PREGU, ERUR #### [facility] [address] [place] [address] [address] Kaet Oconnor Nitrite Ql (U) Negative Normal NEGATIVE [facility] Comment on above: Performed By: #### U MICRO, PREGU, ERUR #### [facility] [address] [place] [address] Dr. Kate Oconnor pH (U) 5.5 [pH] Normal 5-9 [facility] Comment on above: Performed By: #### U MICRO, PREGU, ERUR #### [facility] [address] [place] [address] Dr. Kate Oconnor SPEC GRAVITY >=1.030 Abnormal 1.005-<=1.02 5 [facility] Comment on above: Performed By: #### U MICRO, PREGU, ERUR #### [facility] [address] [place] [address] Dr. Kate Oconnor UA PROTEIN Negative Normal NEGATIVE/ TRACE [facility] Comment on above: Performed By: #### U MICRO, PREGU, ERUR #### [facility] [address] [place] [address] [address] Kate Oconnor UR MICRO IND INDICATED Normal [facility] Comment on above: Performed By: #### U MICRO, PREGU, ERUR #### [facility] [address] [place] [address] Dr. Kate Oconnor Urobilinogen Qn (U) 0.2 {Sukh'U}/dL Normal 0.2 - 1. 0 [facility] Comment on above: Performed By: #### U MICRO, PREGU, ERUR #### [facility] [address] [place] [address] Dr. Kate Oconnor LIPASEon 02-06-2023 Lipase [Catalytic activity/Vol] 46.0 U/L Critically low 73.0-393.0 [facility] Comment on above: Performed By: #### L IPA, CMP, CHERRY #### [facility] [address] [place] [address] Dr. Kate Oconnor URon 02-06-2023 , QUAL Negative Normal NEGATIVE [facility] Comment on above: Performed By: #### U MICRO, PREGU, ERUR #### [facility] [address] [place] [address] Dr. Kate Oconnor PROF 14(COMP METB)on 023 Albumin [Mass/Vol] 4.1 g/dL Normal 3.4-5.0 [facility] Comment on above: Performed By: #### L IPA, CMP, CHERRY #### [facility] [address] [place] [address] Dr. Kate Oconnor Albumin/Globulin [Mass ratio] 1.3 {ratio} Normal [facility] Comment on above: Performed By: #### L IPA, CMP, CHERRY #### [facility] [address] [place] [address] Dr. Kate Oconnor ALP [Catalytic activity/Vol] 78 U/L Normal 46-116 [facility] Comment on above: Performed By: #### L IPA, CMP, CHERRY #### [facility] [address] [place] [address] Dr. Kate Oconnor ALT [Catalytic activity/Vol] 25 U/L Normal 14-59 [facility] Comment on above: Performed By: #### L IPA, CMP, CHERRY #### [facility] [address] [place] [address] Dr. Kate Oconnor Anion gap [Moles/Vol] 9.6 mmol/L Normal [facility] Comment on above: Performed By: #### L IPA, CMP, CHERRY #### [facility] [address] [place] [address] Dr. Kate Oconnor AST [Catalytic activity/Vol] 18 U/L Normal 15-37 [facility] Comment on above: Performed By: #### L IPA, CMP, CHERRY #### [facility] [address] [place] [address] [address] Kate Oconnor Bilirubin [Mass/Vol] 0.9 mg/dL Normal 0.2-1.0 [facility] Comment on above: Performed By: #### L IPA, CMP, CHERRY #### [facility] [address] [place] [address] Dr. Kate Oconnor Calcium [Mass/Vol] 8.8 mg/dL Normal 8.5-10.1 [facility] Comment on above: Performed By: #### L IPA, CMP, CHERRY #### [facility] [address] [place] [address] Dr. Kate Oconnor Chloride [Moles/Vol] 105 mmol/L Normal 98-107 [facility] Comment on above: Performed By: #### L IPA, CMP, CHERRY #### [facility] [address] [place] [address] Dr. Kate Oconnor CO2 [Moles/Vol] 26.8 mmol/L Normal 21.0-32.0 [facility] Comment on above: Performed By: #### L IPA, CMP, CHERRY #### [facility] [address] [place] [address] Dr. Kate Oconnor Creatinine [Mass/Vol] 0.69 mg/dL Normal 0.55-1.02 [facility] Comment on above: Performed By: #### L IPA, CMP, CHERRY #### [facility] [address] [place] [address] Dr. Kate Oconnor EGFR-AF GUINEAN >60 Normal >=60 [facility] Comment on above: Performed By: #### L IPA, CMP, CHERRY #### [facility] [address] [place] [address] Dr. Kate Oconnor EGFR-NON AF GUINEAN >60 Normal >=60 [facility] Comment on above: Performed By: #### L IPA, CMP, CHERRY #### [facility] [address] [place] [address] [address] Kate Oconnor Globulin (S) [Mass/Vol] 3.2 g/dL Normal [facility] Comment on above: Performed By: #### L IPA, CMP, CHERRY #### [facility] [address] [place] [address] [address] Kate Oconnor Glucose [Mass/Vol] 95 mg/dL Normal 74-106 [facility] Comment on above: Performed By: #### L IPA, CMP, CHERRY #### [facility] [address] [place] [address] Dr. Kate Oconnor Potassium [Moles/Vol] 3.4 mmol/L Critically low 3.5-5.1 [facility] Comment on above: Performed By: #### L IPA, CMP, CHERRY #### [facility] [address] [place] [address] Dr. Kate Oconnor Protein [Mass/Vol] 7.3 g/dL Normal 6.4-8.2 [facility] Comment on above: Performed By: #### L IPA, CMP, CHERRY #### [facility] [address] [place] [address] Dr. Kate Oconnor Sodium [Moles/Vol] 138 mmol/L Normal 136-145 [facility] Comment on above: Performed By: #### L IPA, CMP, CHERRY #### [facility] [address] [place] [address] Dr. Kate Oconnor Urea nitrogen [Mass/Vol] 9.0 mg/dL Normal 7.0-18.0 [facility] Comment on above: Performed By: #### L IPA, CMP, CHERRY #### [facility] [address] [place] [address] Dr. Kate Oconnor Urea nitrogen/Creatinine [Mass ratio] 13.0 mg/mg Normal [facility] Comment on above: Performed By: #### L IPA, CMP, CHERRY #### [facility] [address] [place] [address] Dr. Kate Oconnor URINE MICROSCOPIC ONLYon BACTERIA TRACE Abnormal NONE SEEN [facility] Comment on above: Performed By: #### U MICRO, PREGU, ERUR #### [facility] [address] [place] [address] [address] Kate Oconnor Bacteria identified Cx Nom (U) INDICATED Normal [facility] Comment on above: Performed By: #### U MICRO, PREGU, ERUR #### [facility] [address] [place] [address] [address] Kate Oconnor CA OX CRYSTALS FEW Normal [facility] Comment on above: Performed By: #### U MICRO, PREGU, ERUR #### [facility] [address] [place] [address] [address] Kaet Oconnor CAST NONE SEEN Normal NONE SEEN [facility] Comment on above: Performed By: #### U MICRO, PREGU, ERUR #### [facility] [address] [place] [address] Dr. Kate Oconnor Crystals LM Nom (Urine sed) SEEN Abnormal NONE SEEN [facility] Comment on above: Performed By: #### U MICRO, PREGU, ERUR #### [facility] [address] [place] [address] Dr. Kate Oconnor Epithelial cells LM Ql (Urine sed) FEW Abnormal NONE SEEN /RARE [facility] Comment on above: Performed By: #### U MICRO, PREGU, ERUR #### [facility] [address] [place] [address] Dr. Kate Oconnor MUCOUS NONE SEEN Normal NONE SEEN [facility] Comment on above: Performed By: #### U MICRO, PREGU, ERUR #### [facility] [address] [place] [address] Dr. Kate Oconnor RBC 0-2 Normal 0-2 [facility] Comment on above: Performed By: #### U MICRO, PREGU, ERUR #### [facility] [address] [place] [address] Dr. Kate Oconnor WBC 5-10 Abnormal NONE SEEN [facility] Comment on above: Performed By: #### U MICRO, PREGU, ERUR #### [facility] [address] [place] [address] Dr. Kate Oconnor Vital Signs Date Time Vital Sign Value Performing Clinician [facility] 05-10-2024 13:00-0400 Diastolic blood pressure 74 mm[Hg] [facility] Work Phone: [facility] 05-10-2024 13:00-0400 Heart rate 64 /min [facility] Work Phone: [facility] 05-10-2024 13:00-0400 Respiratory rate 16 /min [facility] Work Phone: [facility] 05-10-2024 13:00-0400 SaO2% (BldA) [Mass fraction] 97 % [facility] Work Phone: [facility] 05-10-2024 13:00-0400 Systolic blood pressure 121 mm[Hg] [facility] Work Phone: [facility] 05-10-2024 10:54-0400 Body height 175.26 cm [facility] Work Phone: [facility] 05-10-2024 10:54-0400 Body temperature 98 [degF] [facility] Work Phone: [facility] 05-10-2024 10:54-0400 Body weight 112.35 kg [facility] Work Phone: [facility] 02-06-2023 12:18-0500 Body height 175.26 cm [facility] Work Phone: [facility] 02-06-2023 12:18-0500 Body temperature 98.4 [degF] [facility] Work Phone: [facility] 02-06-2023 12:18-0500 Body weight 114.75 kg [facility] Work Phone: [facility] 02-06-2023 12:18-0500 Diastolic blood pressure 90 mm[Hg] [facility] Work Phone: [facility] 02-06-2023 12:18-0500 Heart rate 86 /min [facility] Work Phone: [facility] 02-06-2023 12:18-0500 Respiratory rate 20 /min Services [facility] [employer] Work Phone: [facility] 02-06-2023 12:18-0500 SaO2% (BldA) [Mass fraction] 100 % Services [facility] Work Phone: [facility] 02-06-2023 12:18-0500 Systolic blood pressure 161 mm[Hg] Services [facility] Work Phone: [facility] Encounters Encounter Date Encounter Type Care Provider Facility Start: 05-10-2024 End: 05-10-2024 Emergency department patient visit Services [facility] Work Phone: [facility] Work Phone: Start: 02-05-2024 End: 02-05-2024 ambulatory PHILLIP BOGGS Not Available Start: 11-27-2023 End: 11-28-2023 ambulatory PHILLIP BOGGS Not Available Start: 11-06-2023 End: 11-06-2023 ambulatory PHILLIP BOGGS Not Available Start: 02-06-2023 End: 02-07-[address] [facility] [place] Start: 02-06-2023 End: 02-06-2023 Emergency department patient visit Services [employer] Work Phone: [facility] Work Phone: Start: 12-10-2022 ambulatory Facility:[id number] Start: 12-04-2022 End: 12-04-2022 ambulatory Services [facility] Work Phone: [facility] Work Phone: Start: 12-04-2022 End: 12-04-2022 Patient encounter procedure Services [facility] [facility] Work Phone: [facility] Work Phone: Procedures Date Procedure Procedure Detail Performing Clinician Start: 05-10-2024 US scan of gallbladder Services [facility] [employer] Work Phone: Plan of Treatment Date Care Activity Detail Author Start: 06-10-2024 Bacteria identified in Urine by Culture [facility] Start: 02-06-2023 [facility] Start: 02-06-2023 [facility] Anion [facility] Basophils [#/volume] in Blood by Automated count [facility] Basophils/100 leukoc ytes in Blood by Automated count [facility] Eosinophils [#/volume] in Blood [facility] Eosinophils/100 leuk ocytes in Blood by Automated count [facility] Erythrocyte distribu tion width [Ratio] by Automated count [facility] Erythrocytes [#/volume] in Blood [facility] Hematocrit [Volume F raction] of Blood [facility] Hemoglobin [Mass/vol ume] in Blood [facility] Leukocytes [#/volume ] corrected for nucleated erythrocytes in Blood by Automated coun [facility] Leukocytes [#/volume] in Blood [facility] Lymphocytes [#/volum e] in Blood by Automated count [facility] Lymphocytes/100 leuk ocytes in Blood by Automated count [facility] MCH [Entitic mass] b y Automated count [facility] MCHC [Mass/volume] b y Automated count [facility] MCV [Entitic volume] by Automated count [facility] Monocytes [#/volume] in Blood by Automated count [facility] Monocytes/100 leukoc ytes in Blood by Automated count [facility] Neutrophils [#/volum e] in Blood by Automated count [facility] Neutrophils/100 leuk ocytes in Blood by Automated count [facility] Nucleated erythrocyt es [Presence] in Blood by Automated count [facility] Patient referral [facility] Work Phone: Platelet mean volume [Entitic volume] in Blood by Automated count [facility] Platelets [#/volume] in Blood [facility] Payers Date Payer Category Payer Self-pay [id number] 2023 Medicaid [id number] 1990 Unknown [id number] 1990 Unknown [id number] 1990 Unknown [id number] 1990 Unknown [id number] 1990 Unknown [id number] 1959 Medicaid [id number] Unknown [id number] Social History Date Type Detail Facility Start: 02-06-2022 End: 05-10-2024 Tobacco smoking status [facility] Ex-smoker (finding) [facility] Start: 1990 Sex Assigned At Female F [facility] Start: 02-06-2023 Tobacco smoking stat us [facility] Smoker (finding) [facility] Evaluation note Note Date & Type Note Facility Evaluation note No assessment information availa ble [facility] Work Phone: Hospital Discharge instructions Note Date & Type Note Facility Hospital Discharge instructions Additional Instructions You are found to have a urinary tract infection and external ear canal infection. You are given oral antibiotics for urinary tract infection as well as eardrops. Take these as prescribed for the full course. If your ear pain does not improve or severely worsens over the next day or 2, he noticed worsening swelling or redness around the ear, headache or fevers, return to the ER as you may need an a different antibiotic. Follow-up with your primary care doctor in the next 3 days for reevaluation. [facility] Work Phone: Chief Complaint and Reason for Visit Chief Complaint Chest Pain Chief Complaint Chest Pain rt side pain Chief Complaint light headed,dizzy Advance Directives No Advanced Directives Records Found Advance Directive Response Recorded Date/ Time Advance Directives No August 3:47pm Advance Directive Response Recorded Date/ Time Advance Directives No August 4:47pm Summary Purpose Family History No Family History Records Found Additional Source Comments Care Teams (unrecognized sec tion and content) Team Status: Inactive Member Role Status Dates Emily Mcclelland APRN UNBUNDLER-C Attending Provider Active Services [facility] Primary Care Provider Active Team Status: Active Member Role Status Dates Services [facility] Primary Care Provider Active Team Status: Inactive Member Role Status Dates Services [facility] Primary Care Provider Active Maurisio Parks DO Emergency Provider Active Team Status: Inactive Member Role Status Dates Services [facility] Primary Care Provider Active Start: May 10, 2024 End: May 10, 2024 Diana Archer MD Emergency Provider Active Start: May 10, 2024 End: May 10, 2024 Goals (unrecognized section and content) Goals may be documented in a n alternate sectionGoals may be documented in an alternate sectionGoals may be documented in an alternate section INFORMATION SOURCE (unrecogn ized section and content) DATE CREATED AUTHOR 12/18/2022 [facility] DATE CREATED AUTHOR AUTHOR'S ORGANIZ ATION 03/31/[address] [facility] DATE CREATED AUTHOR AUTHOR'S ORGANIZ ATION 02/07/2024 [facility] EPIC DATE CREATED AUTHOR AUTHOR'S ORGANIZ ATION 05/11/2024 [facility] FOR RECORDS PERTAINING TO PATIENTS WHO ARE [...] BE BASED ON THE PRIMARY CLINICAL RECORDS. [facility] [employer] provides no warranty or guarantee of the accuracy or completeness of information in this document.
--- NOTE | 2024-05-11 20:38 | CT_ITS ---
The [address] [address] Patient Name: NEISHA AMIN MRN: [id number] date: 1990 Sex: F Assigned Patient Location: ER Current Patient Location: ER Accession/Order Number: [id number] Exam Date: 05/11/2024 21:24 Report Date: 05/11/2024 21:53 At the request of: ROSCOE MARKER Procedure: CT abdomen pelvis w con EXAM: CT scan of the abdomen and pelvis using 98 mL of IV iodinated contrast. Dose reduction technique used: Automated exposure control and/or adjustment of the mA and/or kV according to patient size and/or use of iterative reconstruction technique. REASON FOR EXAM: upper abd pain COMPARISON: CT scan dated 02/06/2023 FINDINGS: Small fat-containing umbilical hernia. Small left renal cyst. Hysterectomy. Appendectomy. No free fluid in the abdomen or pelvis. No free intraperitoneal air. No dilated or thickened loops of small bowel or colon. No hydronephrosis or obstructing renal or ureteral calculi. Liver, pancreas, spleen, bilateral kidneys, and bilateral adrenal glands are otherwise unremarkable. No lymphadenopathy in the abdomen or pelvis. Remainder unremarkable. CT/CT abdomen pelvis w con IMPRESSION: No acute abnormalities in the abdomen or pelvis. Electronically authenticated by: SARAI ROBERSON Date: 05/11/2024 21:53
--- NOTE | 2024-05-11 20:49 | ED.GENADUL1 ---
HPI HPI - General Adult General Chief complaint: Nausea/Vomiting/Diarrhea Stated complaint: Dizziness, Nausea/Vomiting, UTI Time Seen by Provider: 05/11/24 20:13 Source: patient Mode of arrival: walk-in Limitations: no limitations History of Present Illness HPI narrative: This 33-year-old female presents for evaluation of right upper quadrant abdominal pain that goes into her right upper back area. The patient states she was seen at [facility] yesterday and was diagnosed with a UTI although she did not have any urinary symptoms, she was also diagnosed with a right otitis media. She states she had an ultrasound done of her gallbladder and was told it was normal however in the past she has been told by a surgeon that her gallbladder needed to come out. She denies any tobacco or alcohol use. She denies any marijuana use. She states that today she cannot keep anything down and has been nauseated and vomiting all day. She tried to drink clear liquids which she was able to tolerate but when she ate chicken noodle soup she threw it up. She states she had a fever last night. She denies any jemal chest pain or shortness of breath. She denies any dizziness or syncope. She denies the possibility of because she has had a hysterectomy. Related Data Home Medications ?Medication ?Instructions ?Recorded ?Confirmed aspirin 81 mg chewable tablet 81 mg PO DAILY 05/11/24 05/11/24 cephalexin 500 mg capsule 500 mg PO Q12H 05/11/24 05/11/24 ciprofloxacin 0.3 %-dexamethasone 3 drp otic (ear) Q12H 05/11/24 05/11/24 0.1 % ear drops,suspension Previous Rx's ?Medication ?Instructions ?Recorded ibuprofen 800 mg tablet 800 mg PO Q8H PRN pain #20 tabs 11/04/23 ondansetron 4 mg disintegrating 4 mg PO Q6H PRN nausea and 11/04/23 tablet vomiting #20 tabs iefgbvlfishfect-rwwjzaymexwvqmi-IH 10 ml PO Q6H PRN cold symptoms 02/20/24 2 mg-30 mg-10 mg/5 mL oral syrup #200 mL (Bromfed DM) ondansetron 4 mg disintegrating 4 mg PO Q6H PRN nausea and 02/20/24 tablet vomiting #12 tabs Allergies Allergy/AdvReac Type Severity Reaction Status Date / Time codeine Allergy Severe Hives Verified 05/11/24 20:19 Opioid HPI Opioid Management Most Recent Opioid Data: Last Pain Scale 8 05/11/24 20:57 Review of Systems ROS Status of ROS 10 or more systems reviewed and unremarkable except as noted in history and below Exam Narrative Exam Narrative: Vital signs and Nursing Notes reviewed: Is afebrile with a normal pulse, blood pressure is mildly elevated at 136/85 she is not hypoxic with pulse ox of 97% on room air General: Awake, alert, oriented, no acute distress, lying comfortably on the stretcher, no active vomiting HEENT: Normocephalic atraumatic, mucous membranes are moist and pink, eyes are clear, normal conjunctiva, vision is grossly intact, posterior pharynx is normal in appearance. Neck: Supple, no meningeal signs, no anterior or posterior cervical lymphadenopathy Chest: Lungs are clear to auscultation with good air entry, there is no wheezing rhonchi or rales appreciated no accessory muscle use, patient is speaking in complete sentences-no chest wall tenderness to palpation CVS: Regular rate and rhythm S1-S2, no murmurs rubs or gallops, pulses are brisk and equal bilaterally ABD: Obese, soft, nondistended, right upper quadrant tenderness to deep palpation, no pulsatile masses appreciated, no right lower quadrant tenderness is appreciated Extremities: Moving all extremities, no lower extremity tenderness or swelling noted, negative Homans' sign, pulses are brisk and equal bilaterally Skin: Normal in appearance without rash,pallor, petechiae or purpura Neuro: No focal deficits Constitutional Vital Signs, click to edit/add: Last Vital Signs Temp 98.2 F 05/11/24 20:12 Pulse 84 05/11/24 20:12 Resp 16 05/11/24 20:12 BP 136/85 05/11/24 20:12 Pulse Ox 97 05/11/24 20:12 O2 Del Method Room Air 05/11/24 20:47 Course Vital Signs Vital signs: Vital Signs Temperature 98.2 F 05/11/24 20:12 Pulse Rate 84 05/11/24 20:12 Respiratory Rate 16 05/11/24 20:12 Blood Pressure 136/85 05/11/24 20:12 Pulse Oximetry 97 05/11/24 20:12 Oxygen Delivery Method Room Air 05/11/24 20:12 Temperature 98.2 F 05/11/24 20:12 Pulse Rate 84 05/11/24 20:12 Respiratory Rate 16 05/11/24 20:12 Blood Pressure 136/85 05/11/24 20:12 Pulse Oximetry 97 05/11/24 20:12 Oxygen Delivery Method Room Air 05/11/24 20:47 Medical Decision Making MDM Narrative Medical decision making narrative: This 33-year-old female, non-smoker who is status post hysterectomy and appendectomy presents for evaluation of upper abdominal pain that radiates into her back. She is also having nausea and vomiting. She was seen yesterday at [facility] and diagnosed with a UTI and right-sided ear infection. She states that she has not been able to keep anything down today except some clear liquids. In the emergency department she has not had any vomiting or diarrhea. An IV was placed and she was medicated with IV fluids, Zofran Toradol and Pepcid. On reevaluation she is feeling somewhat better. Routine labs are reviewed. She has a normal white count and hemoglobin. Electrolytes, liver function enzymes and lipase are normal. D-dimer is also normal. CT scan of the abdomen pelvis which is included in the body of this report is negative for acute findings. The results of the CT scan were discussed with her and she was given a copy for her records. She states that she will follow-up with family medicine. She did not receive a referral to gastroenterology while at [facility] yesterday. I encouraged her to follow-up closely with her family practice providers and request a referral to gastroenterology as we do not have GI available at this facility. She will be discharged home with prescription for Bentyl and Pepcid. She received a prescription for Zofran during her emergency department visit yesterday. Medical Records Medical records narrative: [place] [address] CT Scan Report Signed Patient: NEISHA AMIN MR#: [id number] : 1990 Acct:[id number] Age/Sex: 33 / F ADM Date: 05/11/24 Loc: ER Attending Dr: Ordering Physician: Roscoe New Date of Service: 05/11/24 Procedure(s): CT abdomen pelvis w con Accession Number(s): [id number] cc: Physician,Non-Staff M.D.~ The [address] [address] Patient Name: NEISHA AMIN MRN: [id number] date: 1990 Sex: F Assigned Patient Location: ER Current Patient Location: ER Accession/Order Number: [id number] Exam Date: 05/11/2024 21:24 Report Date: 05/11/2024 21:53 At the request of: ROSCOE MARKER Procedure: CT abdomen pelvis w con EXAM: CT scan of the abdomen and pelvis using 98 mL of IV iodinated contrast. Dose reduction technique used: Automated exposure control and/or adjustment of the mA and/or kV according to patient size and/or use of iterative reconstruction technique. REASON FOR EXAM: upper abd pain COMPARISON: CT scan dated 02/06/2023 FINDINGS: Small fat-containing umbilical hernia. Small left renal cyst. Hysterectomy. Appendectomy. No free fluid in the abdomen or pelvis. No free intraperitoneal air. No dilated or thickened loops of small bowel or colon. No hydronephrosis or obstructing renal or ureteral calculi. Liver, pancreas, spleen, bilateral kidneys, and bilateral adrenal glands are otherwise unremarkable. No lymphadenopathy in the abdomen or pelvis. Remainder unremarkable. CT/CT abdomen pelvis w con IMPRESSION: No acute abnormalities in the abdomen or pelvis. Lab Data Lab results reviewed: Yes I reviewed the patient's lab results Labs: Lab Results 05/11/24 Range/Units 20:44 WBC 7.6 (4.0-11.0) 10^3/uL RBC 4.51 (4.20-5.40) 10^6/uL Hgb 12.6 (12.0-16.0) g/dL Hct 37.8 (36.0-48.0) % MCV 83.8 (81.0-99.0) fL MCH 27.9 (26.7-34.0) pg MCHC 33.3 (29.9-35.2) g/dL RDW 12.6 (11.0-15.0) % Plt Count 336 (150-450) 10^3/uL MPV 8.8 L (9.5-13.5) fL Neut % (Auto) 56.5 (43.0-75.0) % Lymph % (Auto) 33.2 (20.5-60.0) % [place] % (Auto) 8.4 (1.7-12.0) % Eos % (Auto) 1.2 (0.9-7.0) % Baso % (Auto) 0.4 (0.2-2.0) % Neut # (Auto) 4.3 (1.4-6.5) 10^3/uL Lymph # (Auto) 2.5 (1.2-3.8) 10^3/uL [place] # (Auto) 0.6 (0.3-0.8) 10^3/uL Eos # (Auto) 0.1 (0.0-0.7) 10^3/uL Baso # (Auto) 0.0 (0.0-0.1) 10^3/uL Abs Immat Gran (auto) 0.02 (0.00-0.03) 10^3/uL Imm/Tot Granulo (auto) 0.3 (0.0-0.5) % D-Dimer 0.47 (<=0.59) mg/L FEU Sodium 140 (136-145) mmol/L Potassium 3.7 (3.5-5.1) mmol/L Chloride 107 (98-107) mmol/L Carbon Dioxide 27.3 (21.0-32.0) mmol/L Anion Gap 9.4 BUN 10.0 (7.0-18.0) mg/dL Creatinine 0.83 (0.55-1.02) mg/dL Est GFR ( Amer) >60 (>=60) Est GFR (Non-Af Amer) >60 (>=60) BUN/Creatinine Ratio 12.0 Glucose 94 (74-106) mg/dL Calcium 8.8 (8.5-10.1) mg/dL Total Bilirubin 0.6 (0.2-1.0) mg/dL AST 16 (15-37) U/L ALT 28 (14-59) U/L Alkaline Phosphatase 73 (46-116) U/L Total Protein 6.7 (6.4-8.2) g/dL Albumin 3.4 (3.4-5.0) g/dL Globulin 3.3 g/dL Albumin/Globulin Ratio 1.0 Lipase 29.0 (16.0-77.0) U/L Discharge Plan Discharge Stand Alone Forms: Portal Instructions Chief Complaint: Nausea/Vomiting/Diarrhea Clinical Impression: Nausea & vomiting, Diarrhea, Abdominal pain Patient Disposition: Home, Self-Care Time of Disposition Decision: 22:22 Condition: Good Prescriptions / Home Meds: No Action hlknlvjbwkqnawt-[id number]-SJ [Bromfed DM] 2-30-10 mg/5 mL syrup 10 ml PO Q6H PRN (Reason: cold symptoms) Qty: 200 0RF ondansetron 4 mg tablet,disintegrating 4 mg PO Q6H PRN (Reason: nausea and vomiting) Qty: 12 0RF cephalexin 500 mg capsule 500 mg PO Q12H ciprofloxacin-dexamethasone 0.3-0.1 % drops,suspension 3 drp OTIC (EAR) Q12H Rx Instructions: Right ear aspirin 81 mg tablet,chewable 81 mg PO DAILY ibuprofen 800 mg tablet 800 mg PO Q8H PRN (Reason: pain) Qty: 20 0RF ondansetron 4 mg tablet,disintegrating 4 mg PO Q6H PRN (Reason: nausea and vomiting) Qty: 20 0RF Print Language: Surinamese Instructions: Gastritis (ED), Acute Nausea and Vomiting (ED), Acute Diarrhea (ED), Abdominal Pain (ED) Referrals: Physician,Non-Staff, MD [Primary Care Provider] - 1 week
[2024-05-11] MEDS: ONDANSETRON PF 4 MG/2 ML VIAL IV (20:57)
[2024-05-11] MEDS: KETOROLAC TROMETHAMINE 30 MG/ML VIAL IVP (20:57)
[2024-05-11] MEDS: FAMOTIDINE/PF 20 MG/2 ML VIAL IV (20:58)
[2024-05-11] MEDS: 0.9 % SODIUM CHLORIDE 1,000 ML 1000 ML IV (20:58)
[2024-05-11 21:02] LABS: Basophils Percent Auto 0.4 % (0.2-2.0); Eosinophils Absolute Auto 0.1 10^3/uL (0.0-0.7); Eosinophils Percent Auto 1.2 % (0.9-7.0); Hematocrit 37.8 % (36.0-48.0); Hemoglobin 12.6 g/dL (12.0-16.0); Immature Granulocytes Abs Auto 0.02 10^3/uL (0.00-0.03); Immature Granulocytes Pct Auto 0.3 % (0.0-0.5); Lymphocytes Absolute Auto 2.5 10^3/uL (1.2-3.8); Lymphocytes Percent Auto 33.2 % (20.5-60.0); Mean Corpuscular HGB Conc 33.3 g/dL (29.9-35.2); Mean Corpuscular Hemoglobin 27.9 pg (26.7-34.0); Mean Corpuscular Volume 83.8 fL (81.0-99.0); Mean Platelet Volume 8.8 fL (9.5-13.5); Monocytes Absolute Auto 0.6 10^3/uL (0.3-0.8); Monocytes Percent Auto 8.4 % (1.7-12.0); Neutrophils Absolute Auto 4.3 10^3/uL (1.4-6.5); Neutrophils Percent Auto 56.5 % (43.0-75.0); Platelet Count 336 10^3/uL (150-450); Red Blood Count 4.51 10^6/uL (4.20-5.40); Red Cell Distribution Width 12.6 % (11.0-15.0); White Blood Count 7.6 10^3/uL (4.0-11.0)
[2024-05-11 21:19] LABS: Alanine Aminotransferase 28 U/L (14-59); Albumin Level 3.4 g/dL (3.4-5.0); Alkaline Phosphatase 73 U/L (46-116); Anion Gap 9.4; Aspartate Amino Transferase 16 U/L (15-37); Bilirubin Total 0.6 mg/dL (0.2-1.0); Calcium 8.8 mg/dL (8.5-10.1); Carbon Dioxide 27.3 mmol/L (21.0-32.0); Chloride 107 mmol/L (98-107); Estimated GFR (African America >60 (>=60); Estimated GFR (Non-African Ame >60 (>=60); Globulin 3.3 g/dL; Glucose 94 mg/dL (74-106); Potassium 3.7 mmol/L (3.5-5.1); Sodium 140 mmol/L (136-145); Total Protein 6.7 g/dL (6.4-8.2)
[2024-05-11 21:22] LABS: D Dimer 0.47 mg/L FEU (<=0.59)
== END 2024-05-11 22:30 | disposition home or self-care (01) ==
PROVIDERS: Emergency Provider Emergency Medicine
DX: R10.9 Unspecified abdominal pain (principal); R11.2 Nausea with vomiting, unspecified; R19.7 Diarrhea, unspecified; Z90.710 Acquired absence of both cervix and uterus
CPT/HCPCS: 36415; 74177; 80053; 83690; 85025; 85378; 96361; 96374; 96375; 99285; J1885; J2405; Q9967

== ENCOUNTER 2024-12-04 16:29 | Emergency (ER) | payer SELFPAY ==
[2024-12-04 16:34] VITALS: BP 132/89; PULSE 80; TEMP 36.6; O2SAT 100; BMI 35.4
[2024-12-04 17:47] VITALS: BP 141/97; PULSE 74; O2SAT 98
--- NOTE | 2024-12-04 17:50 | PC.NURSE ---
Red flat rash to trunk and extremities, no seeping or open areas. Patient was recently treated with antibiotics.
--- NOTE | 2024-12-04 17:54 | ED_ITS ---
HPI HPI - General Adult General Chief complaint: Skin/Abscess/Foreign Body Stated complaint: rash Time Seen by Provider: 12/04/24 17:43 Source: patient Mode of arrival: walk-in History of Present Illness HPI narrative: Pt was diagnosed with Covid a day or two after [facility]. She had cough, congestion, muscle aches. She said that she started to feel better but a few days ago developed nausea and has been vomiting for the last 2 days. She also broke out in an itchy red rash on her torso and extremities. She took some Benadryl this morning. When asked about new meds she told me that she had some leftover amoxicillin that she took after the covid diagnosis and before the rash started. Related Data Home Medications ?Medication ?Instructions ?Recorded ?Confirmed aspirin 81 mg chewable tablet 81 mg PO DAILY 05/11/24 12/04/24 ciprofloxacin 0.3 %-dexamethasone 3 drp otic (ear) Q12H 05/11/24 05/11/24 0.1 % ear drops,suspension Previous Rx's ?Medication ?Instructions ?Recorded ibuprofen 800 mg tablet 800 mg PO Q8H PRN pain #20 tabs 11/04/23 ondansetron 4 mg disintegrating 4 mg PO Q6H PRN nausea and 11/04/23 tablet vomiting #20 tabs ondansetron 4 mg disintegrating 4 mg PO Q6H PRN nausea and 02/20/24 tablet vomiting #12 tabs ondansetron 4 mg disintegrating 4 mg PO Q6H PRN nausea and 12/04/24 tablet vomiting #20 tabs prednisone 20 mg tablet 40 mg (2 x 20 mg) PO DAILY 3 days 12/04/24 #6 tabs Allergies Allergy/AdvReac Type Severity Reaction Status Date / Time codeine Allergy Severe Hives Verified 12/04/24 16:34 Opioid HPI Opioid Management Most Recent Opioid Data: Last Pain Scale 8 05/11/24 20:57 05/11/24 PFSH PFSH Social History Little interest or pleasure in doing things: not at all Feeling down, depressed, or hopeless: not at all Exam Narrative Exam Narrative: Nurses notes and vital signs reviewed and patient is not hypoxic. afebrile General: Well-appearing and in no apparent distress. Skin: Warm, dry, no pallor noted. Diffuse patchy flat red rash noted on left elbow, right upper arm, upper breasts and abdomen. Head: Normocephalic, atraumatic. Neck: Supple, non-tender. No cervical lymphadenopathy Eye: Pupils are equal, round and EOMI. No scleral icterus. Ears, Nose, Mouth, and Throat: TM are clear, no posterior oropharynx erythema. mild nasal mucosal hypertrophy, uvula is mid-line. Oral mucosa is moist Cardiovascular: Regular Rate and Rhythm without murmur, gallop or rub. Respiratory: No accessory muscle use or respiratory distress. Lungs are clear to auscultation, no wheezing, rales or rhonchi Musculoskeletal: normal ROM, no calf or popliteal tenderness. Mild bilateral lower extremity edema/swelling = trace non pitting GI: Abdomen is soft, non-distended. Normal bowel sounds. No tenderness to palpation. No rebound, guarding, or rigidity noted. Neurological: A&O x4. No cranial nerve dysfunction observed. No truncal ataxia. Moves all extremities. Sensation intact. Psychiatric: Cooperative and interactive. Normal mood and affect. Constitutional Vital Signs, click to edit/add: Last Vital Signs Temp 97.8 F 12/04/24 16:34 Pulse 74 12/04/24 17:47 Resp 18 12/04/24 17:47 BP 141/97 H 12/04/24 17:47 Pulse Ox 98 12/04/24 17:47 O2 Del Method Room Air 12/04/24 17:47 Course Vital Signs Vital signs: Vital Signs Temperature 97.8 F 12/04/24 16:34 Pulse Rate 80 12/04/24 16:34 Respiratory Rate 20 12/04/24 16:34 Blood Pressure 132/89 12/04/24 16:34 Pulse Oximetry 100 12/04/24 16:34 Temperature 97.8 F 12/04/24 16:34 Pulse Rate 74 12/04/24 17:47 Respiratory Rate 18 12/04/24 17:47 Blood Pressure 141/97 H 12/04/24 17:47 Pulse Oximetry 98 12/04/24 17:47 Oxygen Delivery Method Room Air 12/04/24 17:47 Medical Decision Making MDM Narrative Medical decision making narrative: Peripheral IV established. Blood drawn and sent for testing. The patient was ordered to receive IV Zofran and a liter of normal saline IV fluid for her nausea and vomiting. She is also ordered to receive IV Solu-Medrol and IV Benadryl for her rash. I told her that she needed to stop taking the amoxicillin and not take any other old medications regardless of whether they were prescribed or not. Labs unremarkable aside from minimal decrease in K. Pt discharged home with prescriptions for Zofran and for Prednisone. Clear liquid diet until N/V stop. OTC Benadryl in addition to the Rxd prednisone for the rash Lab Data Lab results reviewed: Yes I reviewed the patient's lab results Labs: Lab Results 12/04/24 Range/Units 18:02 WBC 9.9 (4.0-11.0) 10^3/uL RBC 4.73 (4.20-5.40) 10^6/uL Hgb 13.3 (12.0-16.0) g/dL Hct 39.9 (36.0-48.0) % MCV 84.4 (81.0-99.0) fL MCH 28.1 (26.7-34.0) pg MCHC 33.3 (29.9-35.2) g/dL RDW 12.7 (11.0-15.0) % Plt Count 363 (150-450) 10^3/uL MPV 8.6 L (9.5-13.5) fL Neut % (Auto) 54.0 (43.0-75.0) % Lymph % (Auto) 37.4 (20.5-60.0) % [place] % (Auto) 7.6 (1.7-12.0) % Eos % (Auto) 0.5 L (0.9-7.0) % Baso % (Auto) 0.3 (0.2-2.0) % Neut # (Auto) 5.4 (1.4-6.5) 10^3/uL Lymph # (Auto) 3.7 (1.2-3.8) 10^3/uL [place] # (Auto) 0.8 (0.3-0.8) 10^3/uL Eos # (Auto) 0.1 (0.0-0.7) 10^3/uL Baso # (Auto) 0.0 (0.0-0.1) 10^3/uL Abs Immat Gran (auto) 0.02 (0.00-0.03) 10^3/uL Imm/Tot Granulo (auto) 0.2 (0.0-0.5) % Sodium 143 (136-145) mmol/L Potassium 3.3 L (3.5-5.1) mmol/L Chloride 106 (98-107) mmol/L Carbon Dioxide 26.9 (21.0-32.0) mmol/L Anion Gap 13.4 BUN 17.0 (7.0-18.0) mg/dL Creatinine 0.92 (0.55-1.02) mg/dL Est GFR ( Amer) >60 (>=60 mL/min/1.73m^2) Est GFR (Non-Af Amer) >60 (>=60 mL/min/1.73m^2) BUN/Creatinine Ratio 18.5 Glucose 88 (74-106) mg/dL Calcium 8.9 (8.5-10.1) mg/dL Total Bilirubin 0.4 (0.2-1.0) mg/dL AST 14 L (15-37) U/L ALT 26 (14-59) U/L Alkaline Phosphatase 72 (46-116) U/L Total Protein 7.2 (6.4-8.2) g/dL Albumin 3.7 (3.4-5.0) g/dL Globulin 3.5 g/dL Albumin/Globulin Ratio 1.1 Discharge Plan Discharge Chief Complaint: Skin/Abscess/Foreign Body Clinical Impression: Viral infection, Nausea & vomiting, Contact dermatitis Patient Disposition: Home, Self-Care Time of Disposition Decision: 19:00 Prescriptions / Home Meds: New ondansetron 4 mg tablet,disintegrating 4 mg PO Q6H PRN (Reason: nausea and vomiting) Qty: 20 0RF prednisone 20 mg tablet 40 mg PO DAILY 3 Days Qty: 6 0RF No Action ondansetron 4 mg tablet,disintegrating 4 mg PO Q6H PRN (Reason: nausea and vomiting) Qty: 12 0RF ciprofloxacin-dexamethasone 0.3-0.1 % drops,suspension 3 drp OTIC (EAR) Q12H Rx Instructions: Right ear aspirin 81 mg tablet,chewable 81 mg PO DAILY ibuprofen 800 mg tablet 800 mg PO Q8H PRN (Reason: pain) Qty: 20 0RF ondansetron 4 mg tablet,disintegrating 4 mg PO Q6H PRN (Reason: nausea and vomiting) Qty: 20 0RF Print Language: [place] Instructions: Contact Dermatitis (ED), Acute Nausea and Vomiting (ED), Viral Syndrome (ED) Referrals: [facility] [Primary Care Provider] - 1 week
[2024-12-04 18:17] LABS: Basophils Percent Auto 0.3 % (0.2-2.0); Eosinophils Absolute Auto 0.1 10^3/uL (0.0-0.7); Eosinophils Percent Auto 0.5 % (0.9-7.0); Hematocrit 39.9 % (36.0-48.0); Hemoglobin 13.3 g/dL (12.0-16.0); Immature Granulocytes Abs Auto 0.02 10^3/uL (0.00-0.03); Immature Granulocytes Pct Auto 0.2 % (0.0-0.5); Lymphocytes Absolute Auto 3.7 10^3/uL (1.2-3.8); Lymphocytes Percent Auto 37.4 % (20.5-60.0); Mean Corpuscular HGB Conc 33.3 g/dL (29.9-35.2); Mean Corpuscular Hemoglobin 28.1 pg (26.7-34.0); Mean Corpuscular Volume 84.4 fL (81.0-99.0); Mean Platelet Volume 8.6 fL (9.5-13.5); Monocytes Absolute Auto 0.8 10^3/uL (0.3-0.8); Monocytes Percent Auto 7.6 % (1.7-12.0); Neutrophils Absolute Auto 5.4 10^3/uL (1.4-6.5); Platelet Count 363 10^3/uL (150-450); Red Blood Count 4.73 10^6/uL (4.20-5.40); Red Cell Distribution Width 12.7 % (11.0-15.0); White Blood Count 9.9 10^3/uL (4.0-11.0)
[2024-12-04] MEDS: 0.9 % SODIUM CHLORIDE 1,000 ML 999 ML IV (18:18)
[2024-12-04] MEDS: DIPHENHYDRAMINE HCL 50 MG/ML VIAL 25 MG IV (18:18)
[2024-12-04] MEDS: ONDANSETRON PF 4 MG/2 ML VIAL IV (18:18)
[2024-12-04 18:32] LABS: Alanine Aminotransferase 26 U/L (14-59); Albumin Globulin Ratio 1.1; Albumin Level 3.7 g/dL (3.4-5.0); Alkaline Phosphatase 72 U/L (46-116); Anion Gap 13.4; Aspartate Amino Transferase 14 U/L (15-37); BUN Creatinine Ratio 18.5; Bilirubin Total 0.4 mg/dL (0.2-1.0); Calcium 8.9 mg/dL (8.5-10.1); Carbon Dioxide 26.9 mmol/L (21.0-32.0); Chloride 106 mmol/L (98-107); Estimated GFR (African America >60 (>=60 mL/min/1.73m^2); Estimated GFR (Non-African Ame >60 (>=60 mL/min/1.73m^2); Globulin 3.5 g/dL; Glucose 88 mg/dL (74-106); Potassium 3.3 mmol/L (3.5-5.1); Sodium 143 mmol/L (136-145); Total Protein 7.2 g/dL (6.4-8.2)
== END 2024-12-04 19:18 | disposition home or self-care (01) ==
PROVIDERS: Emergency Provider Emergency Medicine
DX: L25.9 Unspecified contact dermatitis, unspecified cause (principal); Z86.16 Personal history of COVID-19; R11.2 Nausea with vomiting, unspecified; B34.9 Viral infection, unspecified
CPT/HCPCS: 36415; 80053; 85025; 96361; 96374; 96375; 99284; J1200; J2405

== ENCOUNTER 2025-09-03 11:01 | Emergency (ER) | payer SELFPAY ==
--- OUTSIDE RECORDS SUMMARY | 2025-09-03 11:06 | XMS_ITS | CCD ---
Author Organization [facility] Care Team Providers Care Medical And Scientific Illustrator Name Role Phone ROLANDO Rubio Attending Provider [facility] Primary Care Provider DO Maurisio Parks Emergency Provider [facility] [place] Primary Care Unavailable GRILLIS ., DR CARMEN Zaidi Attending Unavaila ble GRILLIS ., DR CARMEN Zaidi Consulting Unavaila ble GRILLIS ., DR CARMEN Zaidi Admitting Unavaila ble HAY ., DR SMITH Consulting Unavailable OZ RICCI Consulting Unavailable MAISHA II, DANILO Consulting Unavailable [facility] Primary Care Provider MD Diana Archer Emergency Provider MD Chano Ulloa Attending Provider [phone] JOSIAH Guerrero Emergency Provider [phone] [facility] Primary Care Provider DO Maurisio Parks Emergency Provider [facility] Primary Care Provider [phone] Chano Ulloa MD Attending Provider Neil Guerrero PA-C Emergency Provider Maurisio Parks DO Emergency Provider PHILLIP BOGGS Referring Unavailable PHILLIP BOGGS Attending Unavailable SHANNON DUVAL Attending Unavailable SHANNON DUVAL Attending Unavailable Juan Carloslocatyazmin GARY, [place] Provider Primary Care Provi homa Vel Ferrara DO Unavailable [facility] Primary Care Provider Kenny Marsh DO Emergency Provider Carmen Rubio MD Emergency Provider Maurisio Parks DO Emergency Provider Adwoa Finnegan Attending Unav ailable Adwoa Finnegan Attending Unav ailable [facility] Primary Care Unavaila ble Neil Guerrero Admitting Unavailable Neil Guerrero Attending Unavailable [facility] Primary Care Unavaila ble Carmen Rubio Admitting Unavailable Carmen Rubio Attending Unavailable [facility] Primary Care Unavaila ble Maurisio Parks Admitting Unavailable Maurisio Parks Attending Unavailable Maurisio Parks Admitting Unavailable Maurisio Parks Attending Unavailable [facility] Primary Care Unavaila ble [facility] Unavaila ble Chano Ulloa Admitting Unavailable Chano Ulloa Attending Unavailable [facility] Unavaila ble Kenny Marsh Admitting Unavailable Kenny Marsh Attending Unavailable Allergies Allergy Classification Reported Allergen(s) Allergy Type Date of Onset Reaction(s) Facility (16 sources) Codeine; Translations: [Codeine] Drug Allergy 08-20-2011 [facility], Unknown, GI intolerance [facility] (12 sources) HYDROcodone; Translations: [Hydrocodone] Drug Allergy 01-26-2022 [facility] Medications Current Medications Medication Drug Class(es) Dates Sig (Normalized) Sig (Original) amoxicillin 500 mg oral capsule (2 sources) Penicillin-class Antibacterial Start: 10-29-2024 End: 11-08-2024 take 1 capsule by mouth in the morning amoxicillin (Amoxil) 500 MG capsule Indications: Acute streptococcal pharyngitis Take 1 capsule (500 mg) by mouth in the morning and 1 capsule (500 mg) before bedtime. Do all this for 10 days. 20 capsule 10/29/2024 11/08/2024 Active aspirin 81 mg chewable tablet (12 sources) Platelet Aggregation Inhibitor, Nonsteroidal Anti-inflammatory Drug Start: 08-02-2017 take 1 tablet by mouth once daily take 1 tablet by mouth once jen y aspirin 81 MG EC tablet Take 81 mg by mouth Daily Active baclofen 10 mg oral tablet (2 sources) gamma-Aminobutyric Acid-ergic Agonist Start: 02-05-2024 take 1 tablet by mouth at bedtime baclofen (Lioresal) 10 MG tablet Indications: Strain of right shoulder, initial encounter Take 1 tablet (10 mg) by mouth at bedtime for 7 days 7 tablet 02/05/2024 Active brompheniramine maleate 0.4 mg/ml / dextromethorphan hydrobromide 2 mg/ml / pseudoephedrine hydrochloride 6 mg/ml oral solution (2 sources) alpha-Adrenergic Agonist, Uncompetitive D-uqgztq-V-aspartate Receptor Antagonist, Sigma-1 Agonist Start: 10-29-2024 End: 11-05-2024 take 5-10 mL by mouth four times daily as needed for cough brompheniramine- pseudoephedrine- DM 30-2-10 MG/5ML syrup Indications: Upper respiratory tract infection, unspecified type Take 5-10 mL by mouth 4 (four) times a day as needed for cough or congestion for up to 7 days 120 mL 10/29/2024 11/05/2024 Active 24 hr metFORMIN hydrochloride 500 mg extended release oral tablet (11 sources) Biguanide Start: 02-06-2023 take 1 tablet by mouth once daily Completed/Discontinued Medications Medication Drug Class(es) Dates Sig (Normalized) Sig (Original) acetaminophen 325 mg / oxyCODONE hydrochloride 5 mg oral tablet (10 sources) Opioid Agonist Start: 02-06-2022 End: 02-06-2023 take 1-2 tablets by mouth every six hours as needed for pain Oxycodone-Acetamin ophen (Percocet) 5-325 mg tablet Discontinued 1 TAB PO Q6H as needed for pain 12 February 06, 2022 February 06, 2023 1:18pm May take 1-2 tabs q 6 hours prn pain [id number] 200 actuat albuterol 0.09 mg/actuat metered dose inhaler (10 sources) beta2-Adrenergic Agonist Start: 03-21-2018 End: 04-24-2018 Albuterol Sulfate 90 mcg/actuation HFA aerosol inhaler Discontinued 2 INH INHALATION Q4H as needed for shortness of breath or wheezing March 21, 2018 12:00am April 24, 2018 4:56pm administer with spacer cephalexin 500 mg oral capsule (20 sources) Cephalosporin Antibacterial Start: 04-21-2025 End: 06-05-2025 take 1 capsule by mouth twice daily Cephalexin 500 mg capsule Discontinued 500 MG PO Twice daily 14 7 April 21, 2025 12:00am June 05, 2025 9:04pm Start: 05-10-2024 End: 07-16-2024 take 1 capsule by mouth twice daily Cephalexin 500 mg capsule Discontinued 500 MG PO Twice daily 14 7 May 10, 2024 12:00am July 16, 2024 8:57am Start: 01-26-2022 End: 02-06-2022 take 1 capsule by mouth twice daily Cephalexin 500 mg capsule Discontinued 500 MG PO Twice daily 14 7 January 26, 2022 1:00am February 06, 2022 7:21am ciprofloxacin 3 mg/ml / dexamethasone 1 mg/ml otic suspension (7 sources) Corticosteroid, Quinolone Antimicrobial Start: 05-10-2024 End: 07-16-2024 Ciprofloxacin-Dexamethasone 0.3-0.1 % drops,suspension Discontinued 4 DROPS EAR-RIGHT Twice daily 7.5 May 10, 2024 12:00am July 16, 2024 8:57am Start: 05-10-2024 End: 07-16-2024 Ciprofloxacin-Dexamethasone Discontinued 4 DROPS EAR-RIGHT Twice daily 7.5 May 10, 2024 12:00am July 16, 2024 8:57am Start: 05-10-2024 Ciprofloxacin- Dexamethasone Active 4 DROPS EAR-RIGHT Twice daily 7.5 May 10, 2024 12:00am Ciprofloxacin-Dexamethasone 0.3-0.1 % drops,suspension (1 source) Start: 05-10-2024 End: 07-16-2024 Ciprofloxacin-Dexamethasone 0.3-0.1 % drops,suspension Discontinued 4 DROPS EAR-RIGHT Twice daily 7.5 May 09, 2024 11:00pm July 16, 2024 7:57am dextromethorphan hydrobromide 3 mg/ml / promethazine hydrochloride 1.25 mg/ml oral solution (10 sources) Phenothiazi ne, Uncompetiti ve N-methyl-D- aspartate Receptor Antagonist, Sigma-1 Agonist Start: 03-21-2018 End: 04-24-2018 take 1 mL by mouth every four to six hours as needed for cough Promethazine-Dm 6.25-15 mg/5 mL syrup Discontinued 5 ML PO EVERY 4-6 HOURS as needed for cough 118 March 21, 2018 12:00am April 24, 2018 4:56pm dicyclomine hydrochloride 20 mg oral tablet (9 sources) Anticholine rgic Start: 04-19-2025 End: 06-05-2025 take 1 tablet by mouth four times daily as needed for pain Dicyclomine 20 mg tablet Discontinued 20 MG PO Four times daily as needed for abdominal pain April 19, 2025 12:00am June 05, 2025 9:04pm Start: 07-16-2024 End: 04-19-2025 take 1 tablet by mouth three times daily as needed for pain Dicyclomine 20 mg tablet Discontinued 20 MG PO Three times daily as needed for abdominal pain July 16, 2024 12:00am April 19, 2025 8:14am gabapentin 300 mg oral capsule (9 sources) Anti-epileptic Agent Start: 07-16-2024 End: 06-05-2025 take 1 capsule by mouth once daily Gabapentin 300 mg capsule Discontinued 300 MG PO Daily July 16, 2024 12:00am June 05, 2025 9:04pm Start: 11-20-2022 take 1 capsule by mo [facility] once daily at bedtime gabapentin (Neurontin) 100 MG capsule TAKE 1 CAPSULE BY MOUTH EVERYDAY AT BEDTIME. 11/20/2022 Active hydrocortisone acetate 25 mg rectal suppository (10 sources) Corticosteroid Start: 05-16-2019 End: 09-12-2019 Hydrocortisone Acetate (Anusol-Hc) 25 mg suppository Discontinued 25 MG UT Twice daily May 16, 2019 12:00am September 12, 2019 10:39pm ibuprofen 800 mg oral tablet (20 sources) Nonsteroidal Anti-inflammatory Drug Start: 07-16-2024 End: 07-16-2024 Ibuprofen 800 mg tablet Discontinued 800 MG PO .prn as needed July 16, 2024 12:00am July 16, 2024 11:37am Start: 02-06-2022 End: 02-06-2023 take 4 tablets by mouth every twenty-four hours for pain Ibuprofen 600 mg tablet Discontinued 600 MG PO Every 6 hours as needed for pain February 06, 2022 1:00am February 06, 2023 1:18pm do not exceed 4 doses in a 24 hour period Start: 07-19-2021 End: 02-06-2022 take 1 tablet by mouth every six hours as needed for pain Ibuprofen 800 mg tablet Discontinued 800 MG PO Q6H as needed for pain July 19, 2021 12:00am February 06, 2022 7:21am loperamide hydrochloride 2 mg oral capsule (10 sources) Opioid Agonist Start: 08-03-2017 End: 09-28-2017 Loperamide (Imodium A-D) 2 mg capsule Discontinued 2 MG PO Q1H as needed for loose stool August 03, 2017 12:00am September 28, 2017 9:49pm after each loose stool until symptoms controlled; do not exceed 8 mg total dose in 24 hrs Mouthwashes (7 sources) Start: 05-14-2020 End: 07-19-2021 Mouthwashes Discontinued 1 SPRAY MUCOUS MEM Daily 72 May 14, 2020 12:00am July 19, 2021 9:14am Start: 05-14-2020 End: 07-19-2021 Mouthwashes Discontinued 1 S PRAY MUCOUS MEM Daily May 13, 2020 11:00pm July 19, 2021 8:14am Mouthwashes aerosol,spray (3 sources) Start: 05-14-2020 End: 07-19-2021 Mouthwashes aerosol,spray Discontinued 1 SPRAY MUCOUS MEM Daily as needed for sore 72 May 14, 2020 12:00am July 19, 2021 9:14am Start: 05-14-2020 End: 07-19-2021 Mouthwashes aerosol,spray Di scontinued 1 SPRAY MUCOUS MEM Daily as needed for sore May 13, 2020 11:00pm July 19, 2021 8:14am naproxen 500 mg oral tablet (20 sources) Nonsteroidal Anti-inflammatory Drug Start: 08-02-2024 End: 08-12-2024 take 1 tablet by mouth twice daily as needed for pain Naproxen (Naprosyn) 500 mg tablet Discontinued 500 MG PO Twice daily as needed for pain August 02, 2024 12:00am August 12, 2024 8:46am Start: 04-24-2018 End: 05-16-2019 take 1 tablet by mouth twice daily Naproxen (Naprosyn) 500 mg tablet Discontinued 500 MG PO Twice daily March 07, 2019 12:00am May 16, 2019 1:14am nitrofurantoin, macrocrystals 25 mg / nitrofurantoin, monohydrate 75 mg oral capsule (10 sources) Nitrofuran Antibacterial Start: 12-01-2018 End: 03-06-2019 take 1 capsule by mouth twice daily at mealtime Nitrofurantoin Monohyd/M-Cryst (Macrobid) 100 mg capsule Discontinued 100 MG PO Twice daily December 01, 2018 1:00am March 06, 2019 11:08pm must administer with a meal/food ondansetron 4 mg disintegrating oral tablet (20 sources) Serotonin-3 Receptor Antagonist Start: 04-19-2025 End: 06-05-2025 take 1 tablet by mouth every six hours as needed for nausea and vomiting Ondansetron 4 mg tablet,disintegrati ng Discontinued 4 MG PO Q6H as needed for nausea and vomiting April 19, 2025 12:00am June 05, 2025 9:04pm Start: 05-10-2024 End: 08-12-2024 take 1 tablet by mouth every eight hours Ondansetron 4 mg tablet,disintegrating Discontinued 4 MG PO Every 8 hours 9 May 10, 2024 12:00am August 12, 2024 8:46am Start: 09-29-2017 End: 10-04-2017 take 1 tablet by mouth every eight hours as needed for nausea and vomiting Ondansetron Hcl (Zofran) 4 mg tablet Discontinued 4 MG PO Q8H as needed for nausea and vomiting 15 September 29, 2017 12:00am October 03, 2017 12:00am October 04, 2017 12:04am Start: 08-03-2017 End: 09-28-2017 take 1 tablet by mouth every eight hours as needed for nausea Ondansetron (Zofran Odt) 4 mg tablet,disintegrating Discontinued 4 MG PO Q8H as needed for nausea August 03, 2017 12:00am September 28, 2017 9:49pm pantoprazole 40 mg delayed release oral tablet (20 sources) Proton Pump Inhibitor Start: 07-16-2024 End: 08-12-2024 Pantoprazole 40 mg tablet,delayed release (DR/EC) Discontinued 40 MG PO Twice daily July 16, 2024 12:00am August 12, 2024 8:46am Take 1 tablet orally 30 minutes before morning meal and 30 minutes before evening meal. Start: 07-16-2024 End: 07-16-2024 take 1 tablet by mouth once daily Pantoprazole (Protonix) 40 mg tablet,delayed release (DR/EC) Discontinued 40 MG PO Daily July 16, 2024 12:00am July 16, 2024 11:37am penicillin v potassium 500 mg oral tablet (15 sources) Start: 08-02-2024 End: 08-12-2024 take 1 tablet by mouth every six hours Penicillin V Potassium 500 mg tablet Discontinued 500 MG PO Q6H 40 August 02, 2024 12:00am August 12, 2024 8:46am Start: 04-24-2018 End: 03-06-2019 take 1 tablet by mouth four times daily Penicillin V Potassium 500 mg tablet Discontinued 500 MG PO Four times daily April 24, 2018 12:00am March 06, 2019 11:08pm predniSONE 20 mg oral tablet (10 sources) Start: 03-21-2018 End: 03-26-2018 take 3 tablets by mouth once daily at mealtime Prednisone 20 mg tablet Discontinued 60 MG PO Daily 15 March 21, 2018 12:00am March 25, 2018 12:00am March 26, 2018 12:01am administer with food or milk Start: 03-21-2018 End: 03-26-2018 take 60 mg by mouth once daily at mealtime Prednisone Discontinued 60 MG PO Daily 15 March 21, 2018 12:00am March 26, 2018 12:01am administer with food or milk promethazine hydrochloride 12.5 mg oral tablet (10 sources) Phenothiazine Start: 09-29-2017 End: 03-21-2018 take 1 tablet by mouth every six hours as needed for nausea and vomiting Promethazine 12.5 mg tablet Discontinued 12.5 MG PO Q6H as needed for nausea and vomiting September 29, 2017 12:00am March 21, 2018 10:42pm sertraline 25 mg oral tablet (2 sources) Serotonin Reuptake Inhibitor Start: 05-14-2024 End: 10-29-2024 sertraline (Zoloft) 25 MG tablet TAKE 1 TABLET BY MOUTH EVERY DAY FOR 30 DAYS for 90 days 05/14/2024 10/29/2024 Discontinued (Therapy completed) 24 hr venlafaxine 37.5 mg extended release oral capsule (2 sources) Serotonin and Norepinephrine Reuptake Inhibitor Start: 06-16-2024 End: 10-29-2024 venlafaxine XR (Effexor XR) 37.5 MG 24 hr capsule 1 (one) time each day at the same time 06/16/2024 10/29/2024 Discontinued (Therapy completed) Problems Active Problems Problem Classification Problem Date Documented Da te Episodic/Chronic Abdominal pain (14 sources) Right lower quadrant pain; Translations: [Abdominal pain] Onset: 3 Episodic Acute bronchitis (12 sources) Acute bronchitis; Translations: [Acute bronchitis, unspecified] Onset: 4 Resolved: 4 03-21-2018 Episodic Appendicitis and other appendiceal conditions (1 source) Unspecified acute appendicitis; Translations: [UNSPECIFIED ACUTE APPENDICITIS] Onset: 3 Episodic Diabetes mellitus without complication (1 source) Type 2 diabetes mellitus without complications; Translations: [TYPE 2 DM WITHOUT COMPLICATIONS] Onset: 3 Chronic Diseases of mouth; excluding dental (10 sources) Aphthous ulcer of mouth; Translations: [Recurrent oral aphthae] 05-14-2020 Episodic Esophageal disorders (13 sources) Gastroesophageal reflux disease; Translations: [Gastro-esophageal reflux disease without esophagitis] Onset: 4 Resolved: 4 07-16-2024 Chronic Gastrointestinal hemorrhage (20 sources) Gastrointestinal hemorrhage; Translations: [Hemorrhage of anus and rectum] Onset: 4 Resolved: 4 05-16-2019 Episodic Genitourinary symptoms and ill-defined conditions (10 sources) Blood in urine; Translations: [Hematuria, unspecified] 01-26-2022 Episodic Headache; including migraine (2 sources) Migraine; Translations: [Migraine, unspecified, not intractable, without status migrainosus] Onset: 2 10-29-2024 Chronic Headache; including migraine (1 source) Headache; Translations: [Headache] 06-13-2025 Episodic Lymphadenitis (12 sources) Lymphadenopathy; Translations: [Generalized enlarged lymph nodes] Onset: 4 07-19-2021 Episodic Menstrual disorders (2 sources) Menometrorrhagia; Translations: [Excessive and frequent menstruation with irregular cycle] Onset: 4 10-29-2024 Chronic Nausea and vomiting (20 sources) Nausea, vomiting and diarrhea; Translations: [Nausea with vomiting, unspecified] Onset: 5 09-29-2017 Episodic Nonspecific chest pain (2 sources) Chest pain; Translations: [Chest pain, unspecified] Onset: 5 06-13-2025 Episodic Other aftercare (1 source) 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; Translations: [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 ORAL HYPOGLYCEMIC DX] Onset: 3 Episodic Other aftercare (7 sources) retirement current use of non-steroidal anti-inflammatory drug; Translations: [exterminator helper (current) use of non-steroidal anti-inflammatories (NSAID)] 07-16-2024 Episodic Other aftercare (4 sources) retirement (current) use of non-steroidal anti-inflammatories (NSAID); Translations: [Long-term (current) use of non-steroidal anti-inflammatories (NSAID)] 07-16-2024 Episodic Other ear and sense organ disorders (8 sources) Otitis externa; Translations: [Unspecified otitis externa, unspecified ear] 05-10-2024 Chronic Other gastrointestinal disorders (17 sources) Diarrhea; Translations: [Diarrhea, unspecified] 05-16-2019 Episodic Other gastrointestinal disorders (4 sources) Diarrhea, unspecified; Translations: [Diarrhea] 07-16-2024 Episodic Other nervous system disorders (10 sources) Acute postoperative pain; Translations: [Other acute postprocedural pain] 02-06-2022 Episodic Other nutritional; endocrine; and metabolic disorders (1 source) Obesity, unspecified; Translations: [OBESITY UNSPECIFIED] Onset: 3 Chronic Other nutritional; endocrine; and metabolic disorders (1 source) Body mass index (BMI) 36.0-36.9, adult; Translations: [BODY MASS INDEX BMI 36.0-36.9 ADULT] Onset: 3 Chronic Other upper respiratory infections (6 sources) Streptococcal sore throat; Translations: [Streptococcal pharyngitis] 10-29-2024 Episodic Residual codes; unclassified (1 source) Acquired absence of both cervix and uterus; Translations: [ACQUIRED ABSENCE BOTH CERVIX AND UTERUS] Onset: 3 Episodic Screening and history of mental health and substance abuse codes (1 source) Personal history of nicotine dependence; Translations: [PERSONAL HISTORY OF NICOTINE DEPEND] Onset: 3 Episodic Superficial injury; contusion (10 sources) Contusion of hand; Translations: [Contusion of left hand, initial encounter] 09-12-2019 Episodic Unclassified (1 source) CONTACT W/AND (SUSP) EXPOS COVID-19; Translations: [CONTACT W/AND (SUSP) EXPOS COVID-19] Onset: 3 Urinary tract infections (18 sources) Urinary tract infectious disease; Translations: [Urinary tract infection, site not specified] 01-26-2022 Episodic Viral infection (12 sources) Acute viral disease; Translations: [Viral infection, unspecified] Onset: 4 Resolved: 4 09-29-2017 Episodic Past or Other Problems Problem Classification Problem Date Documented Date Episodic/Chronic Endometriosis (2 sources) Endometriosis (clinical); Translations: [Endometriosis, unspecified] Onset: 10-29-2024 Resolved: 10-29-2024 10-29-2024 Chronic Skull and face fractures (6 sources) Fracture of tooth ; Translations: [Fracture of tooth (traumatic), initial encounter for closed fracture] Onset: 08-02-2024 08-02-2024 Episodic Results Test Name Value Interpretation Reference Range Facility ED Note-Physicianon 07-01-20 ED Note-Physician ED Note-Physician Basic Information Time Seen: Adwoa Finnegan D.O. 06/27/2025 20:28 Chief Complaint Pt arrives to ED from home with c/o migraine starting 3 days ago, vomiting, and abd pain wrapping around the back. Has not kept any fluids or food down. H/O MS, DM. At home meds not helping. History of Present Illness The patient is a 34-year-old female with a history of multiple sclerosis and diabetes mellitus who presents to the emergency department with a migraine headache. Headache duration has been for 3 days. Its on the right side of her head and the occiput area. Light makes it worse. It is associated with nausea and vomiting. She also has abdominal pain. She is unable to keep any food or fluids down. Home medications are not helping her. She feels like there is a knot in her neck it is pushing into her brain. Pain is a 9 out of 10. It is a pressure-like in sensation. Excedrin and ibuprofen have been no help. Patient does have neck pain but she can put her chin to her chest. No meningeal signs. Patient's not having any difficulty breathing, speaking, concentrating. No sore throat. No tinnitus. No hearing loss. No blurry vision, double vision, loss of vision. Review of Systems 10 systems were reviewed. Unless indicated in a detailed history of present illness, all other systems reviewed, unremarkable, or noncontributory. Physical Exam Vitals & Measurements T: 36.8 ???C(Oral) HR: 64(Monitored) RR: 18 BP: 126/85 SpO2: 97% HT: 175 cm WT: 114.9 kg BMI: 37.52 Introduced myself to the patient. My hands were washed with hospital supplied hand geophysical laboratory chief and then nonlatex gloves were applied. I obtained permission from the patient to examine them. General: Patient is alert and oriented to person place and time. They are able to provide their own history. Patient appears to be nontoxic although in mild distress. Skin: Skin is pink warm and dry without any evidence of rashes or lesions. Head: Normocephalic atraumatic. Neck: Trachea is midline, airway is intact, no evidence of anterior posterior cervical adenopathy. No midline point tenderness. No JVD or hepatojugular reflux. Eye: Pupils are equal round and reactive. Extraocular muscles are intact. No evidence of vertical or horizontal nystagmus. Conjunctiva is normal. No evidence of scleral icterus ENMT: Dentition is intact, mucous membranes are moist. No evidence of nasal discharge. Cardiovascular: Regular rate and rhythm without any clicks, murmurs, rubs. The patient does not have any evidence of peripheral edema. Respiratory: Lungs are clear to auscultation without any rhonchi, rales, wheezing. Patient speaks in full sentences does not appear toxic or in any acute distress. Chest wall: No reproducible tenderness or deformity Gastrointestinal: No masses appreciated. No obvious hernias. Normal bowel sounds. No fluid wave. No abdominal tenderness. Back: No midline point tenderness. No paraspinal musculature tenderness. Extremities: Patient moves all 4 extremities symmetrically. No evidence of gross deformity, swelling, or tenderness. Neurological: oriented x 4, LOC appropriate for age, CN II-XII intact, motor strength equal & normal bilaterally, sensation equal & normal bilaterally, speech normal Psychiatric: cooperative, affect appropriate for age, normal judgement, normal psychiatric thoughts. After the patient was examined by close removed and my hands were resanitized. The patient was informed of all abnormal physical exam findings. Medical Decision Making Medical Decision Making and Clinical Course Summary: The patient is a 34-year-old female with a history of multiple sclerosis and diabetes mellitus who presents to the emergency department with a migraine headache. Headache duration has been for 3 days. Its on the right side of her head and the occiput area. Light makes it worse. It is associated with nausea and vomiting. She also has abdominal pain. She is unable to keep any food or fluids down. Home medications are not helping her. She feels like there is a knot in her neck it is pushing into her brain. Pain is a 9 out of 10. It is a pressure-like in sensation. Excedrin and ibuprofen have been no help. Patient does have neck pain but she can put her chin to her chest. No meningeal signs. Patient's not having any difficulty breathing, speaking, concentrating. No sore throat. No tinnitus. No hearing loss. No blurry vision, double vision, loss of vision. Additional Historian: none Medical Records Reviewed: Reviewed history and medication list Labs ordered: Comprehensive metabolic panel and urinalysis. Imaging Ordered: CT scan of the brain. Interpretation of Labs/Imaging: CT scan of the brain returned and reveals no acute intracranial hemorrhage. No midline shift or mass effect. The territorial kaye-white matter differentiation is maintained throughout. The ventricles and sulci are commensurate with age. 00:12 discussed findings with the patient. I gave her a copy of the n (more content not included)... Normal [facility] Comment on above: Result Comment: Elec tronically Signed By: Adwoa Finnegan D.O..rolly\Date and Time Signed: 07/01/25 16:52 EDT C Urineon 06-29-2025 Bacteria identified Cx Nom (U) Microbiology PROCEDURE: Urine Culture [R1] SOURCE: U CleanCatch BODY SITE: COLLECTED DATE/TIME: 06/27/2025 20:54 EDT RECEIVED DATE/TIME: 06/27/2025 22:21 EDT START DATE/TIME: 06/27/2025 22:21 EDT FREE TEXT SOURCE: Maico Monge D.O., Maico Monge D.O., Adwoa Gould FINAL REPORTS Final Report [] Verified Date/Time: 06/29/2025 11:29 EDT 2,000 cfu/ml Mixed skin contaminants Performing Locations R1: This test was performed at: [facility], [address] [place] [address], [phone] , [facility] Comment on above: Performed By: #### 2 [id number] #### [facility] [address] [place] [address] Head or Brain w/o Contras ton 06-28-2025 CT Head or Brain w/o Contrast Exam Date/Time: 06/27/2025 22:34 EDT Reason for Exam: Headache Report Impression: No acute intracranial process. CT Brain. Contrast medium: without contrast.. History: migraine starting 3 days ago, vomiting, and abd pain wrapping around the back. Has not kept any fluids or food down. H/O MS. Technical factors: CT imaging of the brain was obtained and formatted as 5 mm contiguous axial images. 2.5 mm contiguous axial images were obtained through the osseous structures. Sagittal and coronal reconstruction obtained during postprocessing. Comparison: None. Findings: Extra-axial spaces: Normal. Intracranial hemorrhage: None. Ventricular system: Without anomaly. Basal Cisterns: Normal. Cerebral Parenchyma: Without anomaly. Midline Shift: None. Cerebellum: Normal. Paranasal sinuses and mastoid air cells: Normal. Visualized Orbits: Normal. All CT scans at this facility use dose modulation, iterative reconstruction, and/or weight based dosing when appropriate to reduce radiation dose to as low as reasonably achievable. Technical Comments: Report Ordering Provider: Adwoa Finnegan FINAL REPORT Dictated: 06/28/2025 9:42 am Jose A Ewing MD Signed (Electronic Signature): 06/28/2025 9:42 am Signed by: Jose A Ewing MD Transcribed by: LOU Technologist: SUSAN Normal [facility] ED Clinical Summaryon 2024 ED Clinical Summary ED Clinical Summary [address] [address] ED Clinical Summary Person Information Name: NEISHA ENGEL/[place] Age: 34 Years : 1990 Sex: Female Language: Nepali PCP: Yasmine Singer MD Marital Status: Single MRN: [id number] Visit Id: Visit Reason: Back pain; Abdominal pain; Vomiting; Headache; MIGRAINE X3 DAYS, N/V, HASNT EATEN IN 3 DAYS. Speciality: Acuity: 3 Enc Type: Emergency Med Service: Emergency Arrival: 06/27/2025 20:20:27 Discharge: 06/28/2025 00:53:37 LOS: 000 04:33 Checkin: 06/27/2025 20:20:27 Checkout: 06/28/2025 00:53:37 Dispo Type: Home (Routine DC) EVENTS: Event Name Event Status Request Date/Time Start Date/Time Complete Date/Time Arrive Complete 06/27/2025 20:20:27 06/27/2025 20:20:27 06/27/2025 20:20:27 Document Home Meds Request 06/27/2025 20:20:27 Triage Complete 06/27/2025 20:20:27 06/27/2025 20:28:02 06/27/2025 20:28:02 Registration Complete 06/27/2025 20:26:22 06/27/2025 20:26:22 06/27/2025 20:26:22 Reg Complete Request 06/27/2025 20:26:22 Reg Bed Request Complete 06/27/2025 20:26:22 06/27/2025 20:26:22 06/27/2025 20:26:22 Dr Exam Complete 06/27/2025 20:28:08 06/27/2025 20:28:08 06/27/2025 20:28:08 Registration Complete 06/27/2025 20:28:08 06/27/2025 20:28:47 06/27/2025 21:53:22 Bed Assign Complete 06/27/2025 20:28:47 06/27/2025 20:28:47 06/27/2025 20:28:47 RN Exam Complete 06/27/2025 20:28:47 06/27/2025 21:07:40 06/27/2025 21:07:40 Pending Labs Complete 06/27/2025 20:30:41 06/27/2025 21:23:02 Meds Admin Request 06/27/2025 20:48:50 Pending Labs Complete 06/27/2025 20:48:50 06/27/2025 21:28:07 Lab Complete 06/27/2025 20:48:50 06/27/2025 21:28:07 Urine Collect Complete 06/27/2025 20:48:50 06/27/2025 21:07:50 Pending Labs Complete 06/27/2025 21:01:37 06/27/2025 21:01:37 06/27/2025 21:28:07 Lab Complete 06/27/2025 21:01:37 06/27/2025 21:01:37 06/27/2025 21:28:07 Pending Labs Inlab 06/27/2025 21:23:02 06/27/2025 21:23:02 Lab Inlab 06/27/2025 21:23:02 06/27/2025 21:23:02 Pending Labs Complete 06/27/2025 21:51:19 06/27/2025 21:51:19 06/27/2025 21:51:19 Pending Labs Complete 06/27/2025 21:55:15 06/27/2025 21:55:15 06/27/2025 21:55:16 Meds Admin Complete 06/27/2025 22:21:44 06/27/2025 22:51:19 CT Complete 06/27/2025 22:21:44 06/27/2025 22:30:45 06/27/2025 22:34:59 Discharge Complete 06/28/2025 00:20:04 06/28/2025 00:53:44 06/28/2025 00:53:44 Transfer Complete 06/28/2025 00:53:44 06/28/2025 00:53:44 06/28/2025 00:53:44 ADDRESS: [address] [place] [id number] PHYS DOC NOTES: MEDICAL INFORMATION: Prescriptions Given: New Medications [id number], [address] [place], [place] [id number], [phone] APAP/butalbital/caffeine (Fioricet oral capsule) 1 Capsules By Mouth every 4 hours. Refills: 0. cyclobenzaprine (cyclobenzaprine 10 mg Tab) 1 Tablets By Mouth 3 times a day as needed for spasm. Refills: 0. PATIENT EDUCATION INFORMATION: Instructions: Tension Headache, Adult Follow up: With: Address: When: Yasmine Singer MD, [facility] [address] [place] [address] In 3 days 07/01/2025 With: Address: When: Yasmine Singer MD, [facility] [address] [place] [address] In 3 days 06/30/2025 DIAGNOSIS: 1:Tension headache Normal [facility] ED Patient Summaryon 025 ED Patient Summary ED Patient Summary [address] [address] Patient Discharge Instructions Person Information Name: NEISHA ENGEL Age: 34 Years Arrival Date: 06/27/2025 20:20:27 Discharge Diagnosis: 1:Tension headache Primary Care Physician: Yasmine Singer MD Provider Information Primary Provider: Adwoa Finnegan D.O. [employer] Lab Analyst:None The exam and treatment you received in the Emergency Department were for an urgent problem and are not intended as complete care. It is important that you follow up with a doctor, nurse practitioner, or physician???s tax accounting assistant for ongoing care. If your symptoms become worse or you do not improve as expected and you are unable to reach your usual health care provider, you should return to the Emergency Department. We are available 24 hours a day. NEISHA ENGEL has been given the following list of patient education materials, prescriptions and follow-up instructions: Follow-up Instructions: With: Address: When: Yasmine Singer MD, [facility] [address] [place] [address] In 3 days 07/01/2025 With: Address: When: Enmanuel GARYYasmine, [facility] [address] [place] [address] In 3 days 06/30/2025 In the event that this physician does not participate in your insurance network, please consult with your insurance company to find a nearby participating provider. Patient Education Materials: Tension Headache, Adult A MESSAGE TO ALL PATIENTS REGARDING OPIOIDS PRESCRIPTION OPIOIDS: WHAT YOU NEED TO KNOW Prescription opioids can be used to help relieve xklpblaz-sg-srfxef pain and are often prescribed following a surgery or injury, or for certain health conditions. These medications can be an important part of the treatment but also come with serious risks. It is important to work with your healthcare provider to make sure you are getting the safest, most effective care. WHAT ARE THE RISKS AND SIDE EFFECTS OF OPIOID USE? Prescription opioids carry serious risks of addiction and overdose, especially with prolonged use. An opioid overdose, often marked by slowed breathing, can cause sudden . The use of prescription opioids can have a number of side effects as well, even when taken as directed: ??? Tolerance???meaning you might need to take more of the medication for the same pain relief ??? Physical dependence???meaning you have symptoms of withdrawal when a medication is stopped ??? Increased sensitivity to pain ??? Constipation ??? Nausea, vomiting, and dry mouth ??? Sleepiness and dizziness ??? Confusion ??? Depression ??? Low levels of testosterone that can result in lower sex drive, energy, and strength ??? Itching and sweating RISKS ARE GREATER WITH: ??? History of drug misuse, substance use disorder, or overdose ??? Mental health conditions (such as depression or anxiety) ??? Sleep apnea ??? Older age (65 years and older) ??? Avoid alcohol while taking prescription opioids. Also, unless specifically advised by your health care provider, medications to avoid include: ??? Benzodiazepines (such as Xanax or Valium) ??? Muscle relaxants (such as Soma or Flexeril) ??? Hypnotics (such as Ambien or Lunesta) ??? Other prescription opioids KNOW YOUR OPTIONS Talk to your health care provider about ways to manage your pain that don???t involve prescription opioids. Some of these options may actually work better and have fewer risks and side effects. Options may include: ??? Pain relievers such as acetaminophen, ibuprofen, and naproxen ??? Some medication that are also used for depression or seizures ??? Physical therapy and exercise ??? Cognitive behavioral therapy, a psychological, goal-directed approach, in which patients learn how to modify physical, behavioral, and emotional triggers of pain and stress. IF YOU ARE PRESCRIBED OPIOIDS FOR PAIN: ??? Never take opioids in greater amounts or more often than prescribed. ??? Follow up with your primary health care provider. o Work together to create a plan on how to manage your pain. o Talk about ways to help manage your pain that don???t involve prescription opioids. o Talk about any and all concerns and side effects. ??? Help prevent misuse and abuse o Never sell or share prescription opioids. o Never use another person???s prescription opioids. ??? Store prescription opioids in a secure place and out of reach of others (this may include visitors, children, friends, and family). ??? Safely dispose of unused prescription opioids: Find your community drug take-back program or your pharmacy mail-back program, or flush them down the toilet, following guidance from the Food and Drug Administration (www.fda.gov/Drugs/Resourc esForYou). ??? Visit www.cdc.gov/drugoverdose to learn (more content not included)... Normal [facility] CMPon 06-27-2025 Albumin [Mass/Vol] 4.0 g/dL Normal 3.3-5.0 [facility] Comment on above: Performed By: #### 2 [id number] #### [facility] [address] [place] [address] Albumin/Globulin [Mass ratio] 1.5 {ratio} Normal 1.1-2.2 [facility] Comment on above: Performed By: #### 2 [id number] #### [facility] [address] [place] [address] Alk Phos 55 Int._Unit/L Normal 21-98 [facility] Comment on above: Performed By: #### 2 [id number] #### [facility] [address] [place] [address] ALT 15 Int._Unit/L Normal 6-46 [facility] Comment on above: Performed By: #### 2 [id number] #### [facility] [address] [place] [address] Anion gap [Moles/Vol] 10 mmol/L Normal 6-16 [facility] Comment on above: Performed By: #### 2 [id number] #### [facility] [address] [place] [address] AST 15 Int._Unit/L Normal 5-43 [facility] Comment on above: Performed By: #### 2 [id number] #### [facility] [address] [place] [address] Bili Total 0.7 mg/dL Normal 0.0-1.1 [facility] Comment on above: Performed By: #### 2 [id number] #### [facility] [address] [place] [address] BUN/Creat Ratio 11 No Units Normal 10-20 [facility] Comment on above: Performed By: #### 2 [id number] #### [facility] [address] [place] [address] Calcium [Mass/Vol] 9.2 mg/dL Normal 8.9-11.1 [facility] Comment on above: Performed By: #### 2 [id number] #### [facility] [address] [place] [address] Chloride [Moles/Vol] 108 mmol/L Normal 101-111 [facility] Comment on above: Performed By: #### 2 [id number] #### [facility] [address] [place] [address] CO2 [Moles/Vol] 26 mmol/L Normal 21-31 [facility] Comment on above: Performed By: #### 2 [id number] #### [facility] [address] [place] [address] Creatinine [Mass/Vol] 0.8 mg/dL Normal 0.5-1.3 [facility] Comment on above: Performed By: #### 2 [id number] #### [facility] [address] [place] [address] Globulin (S) [Mass/Vol] 2.6 g/dL Normal 1.4-4.0 [facility] Comment on above: Performed By: #### 2 [id number] #### [facility] [address] [place] [address] Glucose [Mass/Vol] 89 mg/dL Normal 55-199 [facility] Comment on above: Performed By: #### 2 [id number] #### [facility] [address] [place] [address] Potassium [Moles/Vol] 3.8 mmol/L Normal 3.5-5.3 [facility] Comment on above: Performed By: #### 2 [id number] #### [facility] [address] [place] [address] Protein [Mass/Vol] 6.6 g/dL Normal 6.0-7.8 [facility] Comment on above: Performed By: #### 2 [id number] #### [facility] [address] [place] [address] Sodium [Moles/Vol] 140 mmol/L Normal 135-145 [facility] Comment on above: Performed By: #### 2 [id number] #### [facility] [address] [place] [address] Urea nitrogen [Mass/Vol] 9 mg/dL Normal 5-21 [facility] Comment on above: Performed By: #### 2 [id number] #### [facility] [address] [place] [address] Extra Blueon 06-27-2025 Tube Collected Plasma Yes Invalid Interpretation Code [facility] Comment on above: Performed By: #### 1 [id number] #### [facility] [address] [place] [address] Lipase Levelon 07-28-2025 Lipase Lvl 15 unit/L Normal 13-58 [facility] Comment on above: Performed By: #### 2 [id number] #### [facility] [address] [place] [address] Magnesiumon 06-27-2025 Magnesium [Mass/Vol] 2.0 mg/dL Normal 1.3-2.4 [facility] Comment on above: Performed By: #### 2 [id number] #### [facility] [address] [place] [address] U BetaHcg Qualon 06-27-2025 U beta hCG Ql Negative Normal [facility] Comment on above: Performed By: #### 2 [id number] #### [facility] [address] [place] [address] UA with Cult Rflxon 06-27-20 25 Color (U) Colorless Abnormal Yellow [facility] Comment on above: Result Comment: Micr oscopic readings are only performed on those samples that meet specific criteria set forth by [facility]. Performed By: #### 4 [id number] #### [facility] [address] [place] [address] Glucose (U) [Mass/Vol] Negative Normal Negative [facility] Comment on above: Performed By: #### 4 [id number] #### [facility] [address] [place] [address] Ketones Ql (U) Negative Normal Negative [facility] Comment on above: Performed By: #### 4 [id number] #### [facility] [address] [place] [address] UA Blood Negative Normal Negative [facility] Comment on above: Performed By: #### 4 [id number] #### [facility] [address] [place] [address] UA Bacteria Trace Normal Trace [facility] Comment on above: Performed By: #### 4 [id number] #### [facility] [address] [place] [address] UA Clarity Clear Normal Clear [facility] Comment on above: Performed By: #### 4 [id number] #### [facility] [address] [place] [address] UA Leuk Est 25 Akila/uL Normal Negative [facility] Comment on above: Performed By: #### 4 [id number] #### [facility] [address] [place] [address] UA Mucous Negative Normal Negative [facility] Comment on above: Performed By: #### 4 [id number] #### [facility] [address] [place] [address] UA Nitrite Negative Normal Negative [facility] Comment on above: Performed By: #### 4 [id number] #### [facility] [address] [place] [address] UA pH 6.0 Invalid Interpretation Code 5.0-9.0 [facility] Comment on above: Performed By: #### 4 [id number] #### [facility] [address] [place] [address] UA Protein Negative Normal Negative [facility] Comment on above: Performed By: #### 4 [id number] #### [facility] [address] [place] [address] UA Spec Grav 1.008 Invalid Interpretation Code 1.005-1.03 0 [facility] Comment on above: Performed By: #### 4 [id number] #### [facility] [address] [place] [address] UA Squam Epithelial 0-2 Invalid Interpretation Code [facility] Comment on above: Performed By: #### 4 [id number] #### [facility] [address] [place] [address] UA Urobilinogen Negative Normal Negative [facility] Comment on above: Performed By: #### 4 [id number] #### [facility] [address] [place] [address] UA WBC 6-15 Abnormal 0-5 [facility] Comment on above: Performed By: #### 4 [id number] #### [facility] [address] [place] [address] Urobilinogen (U) [Mass/Vol] Negative Normal Negative [facility] Comment on above: Performed By: #### 4 [id number] #### [facility] [address] [place] [address] UA Spec Desc Clean Catch Normal [facility] Comment on above: Performed By: #### 4 [id number] #### [facility] [address] [place] [address] eGFRon 06-27-2025 eGFR 99 mL/min/1.73 m2 Normal >=59 [facility] Comment on above: Performed By: #### 1 [id number] #### [facility] [address] [place] [address] XR chest 2V*on 06-06-2025 XR chest 2V* [facility] [place] [address] XRay Report Signed Patient: Neisha Engel MR#: [id number] : 1990 Acct:[id number] Age/Sex: 34 / F ADM Date: 06/05/25 Loc: ER Room: Type: [facility] ER Attending Dr: Copies to: Carmen Rubio MD Ordering Provider: Carmen Rubio MD Date of Service: 06/05/25 XR/XR chest 2V*: Chest Pain Plain film chest 2 view HISTORY: Chest pain for one hour COMPARISON: None FINDINGS: SUPPORT DEVICES: None POSTSURGICAL CHANGES: None HEART: Within normal limits PULMONARY JENNIFER: Within normal limits MEDIASTINUM: Unremarkable LUNGS AND PLEURA: No acute lung process, pleural effusion or pneumothorax identified. Minor interstitial changes BONY STRUCTURES: Intact ADDITIONAL FINDINGS None XR/XR chest 2V* IMPRESSION: No acute process. Impression dictated by: Tommy Myers M.D. 06/06/2025 8:29 AM Dictation Location: [place] [address] Transcribed By: [facility] 06/06/25 0829 Dictated By: Tommy Myers DO 06/06/25 0828 Signed By: 06/06/25828 Normal [facility] BNP ser/plasOrdered By: PROV IDER ANMOLP on 06-05-2025 Natriuretic peptide B (Bld) [Mass/Vol] 31.0 pg/mL Normal 5-100 [facility] Comment on above: Result Comment: PERF ORMED BY: [place] [address] PATHOLOGIST SECTION 8 PROPERTY MANAGER FILEMON FULLER M.D. Performed By: #### B MP, LIPASE, HEPATIC, CBC #### [address] Basic Metabolic Panelon 07-0 Creatinine Clr Calc Pharmacy 127.18 Normal [facility] Comment on above: Result Comment: PERF ORMED BY: [place] [address] PATHOLOGIST SECTION 8 PROPERTY MANAGER FILEMON FULLER M.D. Performed By: #### B MP, LIPASE, HEPATIC, CBC #### [address] GFR/1.73 sq M.predicted MDRD (S/P/Bld) [Vol rate/Area] mL/min/{1.73_m2} Normal [facility] Comment on above: Performed By: #### B MP, LIPASE, HEPATIC, CBC #### [address] Basophils [#/volume] in Bloo d by Automated countOrdered By: PROVIDER TEMP on 06-05-2025 Basophils (Bld) [#/Vol] 0.1 10*3/uL Normal 0.0-0.2 [facility] Comment on above: Result Comment: PERF ORMED BY: [place] [address] PATHOLOGIST SECTION 8 PROPERTY MANAGER FILEMON FULLER M.D. Performed By: #### B MP, LIPASE, HEPATIC, CBC #### [address] Basophils/100 leukocytes in Blood by Automated countOrdered By: PROVIDER TEMP on 06-05-2025 Basophils/100 WBC (Bld) 0.7 % Normal . [facility] Comment on above: Performed By: #### B MP, LIPASE, HEPATIC, CBC #### [facility] [address] Calcium [Mass/volume] in Ser um or PlasmaOrdered By: PROVIDER TEMP on 06-05-2025 Calcium [Mass/Vol] 9.3 mg/dL Normal 8.6-10.3 [facility] Comment on above: Performed By: #### B MP, LIPASE, HEPATIC, CBC #### [address] Carbon dioxide, total [Moles /volume] in Serum or PlasmaOrdered By: PROVIDER TEMP on 06-05-2025 CO2 [Moles/Vol] 25.4 mmol/L Normal 21.0-31.0 [facility] Comment on above: Performed By: #### B MP, LIPASE, HEPATIC, CBC #### [address] Chloride [Moles/volume] in S alanna or PlasmaOrdered By: PROVIDER TEMP on 06-05-2025 Chloride [Moles/Vol] 106 mmol/L Normal 98-107 [facility] Comment on above: Performed By: #### B MP, LIPASE, HEPATIC, CBC #### [address] Complete Blood Count Auto Di ffon 06-05-2025 Mean Corpuscular HGB Conc 34.1 g/dL Normal 32.0-35.0 [facility] Comment on above: Performed By: #### B MP, LIPASE, HEPATIC, CBC #### [address] Monocytes/100 WBC (Bld) 17.92 % Normal 0.00-20.00 [facility] Comment on above: Performed By: #### B MP, LIPASE, HEPATIC, CBC #### [address] NRBC% 0.1 /100{WBC} Normal 0-0.5 [facility] Comment on above: Performed By: #### B MP, LIPASE, HEPATIC, CBC #### [facility] [address] White Blood Count 10.8 [CFU]/mL Normal 3.8-11.6 [facility] Comment on above: Performed By: #### B MP, LIPASE, HEPATIC, CBC #### [facility] [address] Creatine kinase [Enzymatic a ctivity/volume] in Serum or PlasmaOrdered By: PROVIDER TEMP on 06-05-2025 CK [Catalytic activity/Vol] 57 U/L Normal 30-223 [facility] Comment on above: Performed By: #### B MP, LIPASE, HEPATIC, CBC #### [facility] [address] Creatinine [Mass/volume] in Serum or PlasmaOrdered By: PROVIDER TEMP on 06-05-2025 Creatinine [Mass/Vol] 0.75 mg/dL Normal 0.60-1.20 [facility] Comment on above: Performed By: #### B MP, LIPASE, HEPATIC, CBC #### [facility] [address] D-Dimer High Sensitivityon 0 06-05-2025 D-Dimer High Sensitivity 253 ng/mL High 0-243 [facility] Comment on above: Result Comment: The reference range for D-dimer is <243 ng/mL D-dimer units. D-dimer results must be used in conjunction with a clinical pretest probability (PTP) assessment model for deep vein thrombosis (DVT) and pulmonary embolism (PE). Results <230 ng/mL d-dimer units can be used as a negative predictor in patients with low or moderate probability for DVT/PE. Results above the exclusion threshold of 230 ng/ml D-dimer units for DVT/PE may indicate the need for further diagnostic testing. D-Dimer can be increased in hospitalized patients due to co-morbid conditions. A hematocrit value greater than 55% may lead to inaccurate results in coagulation testing. Patients having hematocrit values >55% require a special collection tube for coagulation studies. Please contact the laboratory at [phone] for redraw instructions. PERFORMED BY: [place] [address] PATHOLOGIST SECTION 8 PROPERTY MANAGER FILEMON FULLER M.D. Performed By: #### B MP, LIPASE, HEPATIC, CBC #### [facility] - [place] [address] [place] [address] [facility] ECG 12 lead ECGon 06-05-2025 ECG 12 lead ECG [facility] Main [place] [address] [place] [address] Electrocardiograph Report Signed Patient: Neisha Engel MR#: [id number] : 1990 Acct:[id number] Age/Sex: 34 / F ADM Date: 06/05/25 Loc: ER Room: Type: [facility] ER Attending Dr: Ordering Provider: Carmen Rubio MD Date of Service: 06/05/[birth year]05/25/1942 ECG/ECG 12 lead ECG: Chest Pain Copies to: Test Reason : Blood Pressure : */* mmHG Vent. Rate : 82 BPM Atrial Rate : 82 BPM P-R Int : 140 ms QRS Dur : 78 ms QT Int : 374 ms P-R-T Axes : 62 24 47 degrees QTcB Int : 436 ms Normal sinus rhythm Normal ECG When compared with ECG of 04-Dec-2022 12:37, T wave amplitude has decreased in Lateral leads Confirmed by CARMEN RUBIO MD ([id number]) on 06/06/2025 1:38:01 AM Referred By: Electronically Signed By: CARMEN RUBIO MD Transcribed By: MUS Signed By Carmen Rubio MD 06/24 0138 Normal [facility] Eosinophils [#/volume] in Bl ood by Automated countOrdered By: PROVIDER TEMP on 06-05-2025 Eosinophils (Bld) [#/Vol] 0.0 10*3/uL Normal 0.0-0.45 [facility] Comment on above: Performed By: #### B MP, LIPASE, HEPATIC, CBC #### [facility] [place] [address] [place] [id number] [facility] Eosinophils/100 leukocytes i n Blood by Automated countOrdered By: PROVIDER TEMP on 06-05-2025 Eosinophils/100 WBC (Bld) 0.3 % Normal . [facility] Comment on above: Performed By: #### B MP, LIPASE, HEPATIC, CBC #### [facility] [place] [address] [place] [id number] [facility] Erythrocyte distribution wid th [Ratio] by Automated countOrdered By: PROVIDER TEMP on 06-05-2025 Erythrocyte distribution width (RBC) [Ratio] 13.4 % Normal 11.9-15.3 [facility] Comment on above: Performed By: #### B MP, LIPASE, HEPATIC, CBC #### [facility] [place] [address] [place] [id number] [facility] Erythrocytes [#/volume] in B lood by Automated countOrdered By: PROVIDER TEMP on 06-05-2025 RBC (Bld) [#/Vol] 4.88 10*6/uL Normal 3.60-5.00 [facility] Comment on above: Performed By: #### B MP, LIPASE, HEPATIC, CBC #### [facility] [place] [address] [place] [id number] [facility] Fibrin D-dimer [Presence] in Platelet poor plasma by Latex agglutinationOrdered By: Carmen Rubio on 06-05-2025 Fibrin D-dimer LA Ql (PPP) 253 ng/mL High 0-243 [facility] Comment on above: The reference range for D-dimer is <243 ng/mL D-dimer units.D-dimer results must be used in conjunction with a clinicalpretest probability (PTP) assessment model for deep veinthrombosis (DVT) and pulmonary embolism (PE). Results <230ng/mL d-dimer units can be used as a negative predictor inpatients with low or moderate probability for DVT/PE.Results above the exclusion threshold of 230 ng/ml D-dimerunits for DVT/PE may indicate the need for furtherdiagnostic testing.D-Dimer can be increased in hospitalized patients due toco-morbid conditions.A hematocrit value greater than 55% may lead to inaccurate results in coagulation testing. Patients having hematocrit values >55% require a special collection tube for coagulation studies. Please contact the laboratory at [phone] for redraw instructions. Glucose [Mass/volume] in Ser um or PlasmaOrdered By: PROVIDER TEMP on 06-05-2025 Glucose [Mass/Vol] 114 mg/dL High 70-100 [facility] Comment on above: ADA recommended refe rence rangeRandom Glucose Reference Range is dependent on time and content of last meal. Glucose of more than 200 mg/dL in a nonstressed, ambulatory subject supports the diagnosis of Diabetes Mellitus. Result Comment: [facility] Glucose Reference Range is dependent on time and content of last meal. Glucose of more than 200 mg/dL in a nonstressed, ambulatory subject supports the diagnosis of Diabetes Mellitus. ADA recommended reference range Performed By: #### B MP, LIPASE, HEPATIC, CBC #### [facility] [place] [address] Hematocrit [Volume Fraction] of Blood by Automated countOrdered By: PROVIDER TEMP on 06-05-2025 Hematocrit (Bld) [Volume fraction] 40.2 % Normal 34.0-46.4 [facility] Comment on above: Performed By: #### B MP, LIPASE, HEPATIC, CBC #### [facility] [place] [address] Hemoglobin [Mass/volume] in BloodOrdered By: PROVIDER TEMP on 06-05-2025 Hemoglobin (Bld) [Mass/Vol] 13.7 g/dL Normal 11.8-15.4 [facility] Comment on above: Performed By: #### B MP, LIPASE, HEPATIC, CBC #### [facility] [place] [address] INR in Platelet poor plasma by Coagulation assayOrdered By: PROVIDER TEMP on 06-05-2025 INR Coag (PPP) [Relative time] 1.0 {INR} Normal [facility] Comment on above: INR Therapeutic Rang e A) Pre- and Peroperative OAT started two weeks before surgery. NOT HIP SURGERY: 1.5 - 2.5 HIP SURGERY: 2 - 3B) Primary and secondary prevention of venous THROMBOSIS: 2 - 3C) Active venous thrombosis, pulmonary embolismand prevention of recurrent venous thrombosis: 2 - 3D) Prevention of arterial thromboembolismincluding patients with mechanical heart valves: 3 - 4.5 Result Comment: INR Therapeutic Range A) Pre- and Peroperative OAT started two weeks before surgery. NOT HIP SURGERY: 1.5 - 2.5 HIP SURGERY: 2 - 3 B) Primary and secondary prevention of venous THROMBOSIS: 2 - 3 C) Active venous thrombosis, pulmonary embolism and prevention of recurrent venous thrombosis: 2 - 3 D) Prevention of arterial thromboembolism including patients with mechanical heart valves: 3 - 4.5 PERFORMED BY: [place] [address] PATHOLOGIST SECTION 8 PROPERTY MANAGER FILEMON FULLER M.D. Performed By: #### B MP, LIPASE, HEPATIC, CBC #### [address] Leukocytes [#/volume] correc tiffanie for nucleated erythrocytes in Blood by Automated counOrdered By: PROVIDER TEMP on 06-05-2025 WBC corrected for nucl RBC Auto (Bld) [#/Vol] 10.8 10*3/uL 3.8-11.6 [facility] Leukocytes [#/volume] in Blo od by Automated countOrdered By: PROVIDER TEMP on 06-05-2025 WBC (Bld) [#/Vol] 10.8 10*3/uL Normal 3.8-11.6 [facility] Comment on above: Performed By: #### B MP, LIPASE, HEPATIC, CBC #### [address] Lymphocytes [#/volume] in Bl ood by Automated countOrdered By: PROVIDER TEMP on 06-05-2025 Lymphocytes (Bld) [#/Vol] 2.7 10*3/uL Normal 1.00-4.8 [facility] Comment on above: Performed By: #### B MP, LIPASE, HEPATIC, CBC #### [address] Lymphocytes/100 leukocytes i n Blood by Automated countOrdered By: PROVIDER TEMP on 06-05-2025 Lymphocytes/100 WBC (Bld) 24.7 % Normal . [facility] Comment on above: Performed By: #### B MP, LIPASE, HEPATIC, CBC #### [place] [address] [place] MCH [Entitic mass] by Automa tiffanie countOrdered By: PROVIDER TEMP on 06-05-2025 MCH (RBC) [Entitic mass] 28.1 pg Normal 24.7-34.3 [facility] Comment on above: Performed By: #### B MP, LIPASE, HEPATIC, CBC #### [facility] [address] MCHC Auto (RBC) [Mass/Vol]Or dered By: PROVIDER TEMP on 06-05-2025 MCHC (RBC) [Mass/Vol] 34.1 g/dL 32.0-35.0 [facility] MCV [Entitic volume] by Auto mated countOrdered By: PROVIDER TEMP on 06-05-2025 MCV (RBC) [Entitic vol] 82.4 fL Normal 80-100 [facility] Comment on above: Performed By: #### B MP, LIPASE, HEPATIC, CBC #### [facility] [address] [place] [address] Monocyte distribution width [Entitic volume] in Blood by AutomatedOrdered By: PROVIDER TEMP on 06-05-2025 Monocyte distribution width Auto (Bld) [Entitic vol] 17.92 % 0.00-20.00 [facility] Monocytes [#/volume] in Bloo d by Automated countOrdered By: PROVIDER TEMP on 06-05-2025 Monocytes (Bld) [#/Vol] 0.7 10*3/uL Normal 0.0-0.8 [facility] Comment on above: Performed By: #### B MP, LIPASE, HEPATIC, CBC #### [facility] [address] [place] [address] Monocytes/100 leukocytes in Blood by Automated countOrdered By: PROVIDER TEMP on 06-05-2025 Monocytes/100 WBC (Bld) 6.1 % Normal . [facility] Comment on above: Performed By: #### B MP, LIPASE, HEPATIC, CBC #### [facility] [address] [place] [address] [place] Neutrophils [#/volume] in Bl ood by Automated countOrdered By: PROVIDER TEMP on 06-05-2025 Neutrophils (Bld) [#/Vol] 7.4 10*3/uL Normal 1.8-7.7 [facility] Comment on above: Performed By: #### B MP, LIPASE, HEPATIC, CBC #### [facility] [address] [place] [address] [place] Neutrophils/100 leukocytes i n Blood by Automated countOrdered By: PROVIDER TEMP on 06-05-2025 Neutrophils/100 WBC (Bld) 68.2 % Normal . [facility] Comment on above: Performed By: #### B MP, LIPASE, HEPATIC, CBC #### [facility] [address] No Panel InformationOrdered By: PROVIDER TEMP on 06-05-2025 Estimated GFR (CKD-EPI) > 60.0 mL/Min [facility] Creatinine Clearance (Chem 127.18 [facility] Nucleated erythrocytes [Pres ence] in Blood by Automated countOrdered By: PROVIDER TEMP on 06-05-2025 Nucleated RBC Auto Ql (Bld) 0.1 /100{WBC} 0-0.5 [facility] Platelet mean volume [Entiti c volume] in Blood by Automated countOrdered By: PROVIDER TEMP on 06-05-2025 Platelet mean volume (Bld) [Entitic vol] 7.1 fL Normal 6.3-10.7 [facility] Comment on above: Performed By: #### B MP, LIPASE, HEPATIC, CBC #### [facility] [address] Platelets [#/volume] in Bloo d by Automated countOrdered By: PROVIDER TEMP on 06-05-2025 Platelets (Bld) [#/Vol] 381 10*3/uL Normal 150-450 [facility] Comment on above: Performed By: #### B MP, LIPASE, HEPATIC, CBC #### [facility] [address] Potassium [Moles/volume] in Serum or PlasmaOrdered By: PROVIDER TEMP on 06-05-2025 Potassium [Moles/Vol] 3.5 mmol/L Normal 3.5-5.1 [facility] Comment on above: Performed By: #### B MP, LIPASE, HEPATIC, CBC #### [facility] [address] [place] [address] Prothrombin time (PT)Ordered By: PROVIDER TEMP on 06-05-2025 PT Coag (PPP) [Time] 11.8 s Normal 9.0-12.9 [facility] Comment on above: A hematocrit value g reater than 55% may lead to inaccurate results in coagulation testing. Patients having hematocrit values >55% require a special collection tube for coagulation studies. Please contact the laboratory at [phone] for redraw instructions. Result Comment: A he matocrit value greater than 55% may lead to inaccurate results in coagulation testing. Patients having hematocrit values >55% require a special collection tube for coagulation studies. Please contact the laboratory at [phone] for redraw instructions. Performed By: #### B MP, LIPASE, HEPATIC, CBC #### [address] Serum or plasma anion gap de terminationOrdered By: PROVIDER TEMP on 06-05-2025 Anion gap [Moles/Vol] 12.1 mmol/L Normal 6.0-15.0 [facility] Comment on above: Performed By: #### B MP, LIPASE, HEPATIC, CBC #### [address] Sodium [Moles/volume] in Ser um or PlasmaOrdered By: PROVIDER TEMP on 06-05-2025 Sodium [Moles/Vol] 140 mmol/L Normal 136-145 [facility] Comment on above: Performed By: #### B MP, LIPASE, HEPATIC, CBC #### [address] Troponin I High Sensitivityo n 06-05-2025 Troponin I High Sensitivity <3 Normal 0-15 [facility] Comment on above: Result Comment: The Troponin units of report have been changed to meet the Chest Pain Accreditation requirement, element EC5.M1l2. Troponin units are changed from pg/ml to ng/L. Also, the decimal is removed and results are in whole numbers. PERFORMED BY: [place] [address] PATHOLOGIST SECTION 8 PROPERTY MANAGER FILEMON FULLER M.D. Performed By: #### B MP, LIPASE, HEPATIC, CBC #### [address] Troponin I.cardiac [Mass/vol ume] in Serum or Plasma by Detection limit <= 0.01 ng/mLOrdered By: PROVIDER TEMP on 06-05-2025 Troponin I.cardiac DL <= 0.01 ng/mL [Mass/Vol] < 3 ng/L 0-15 [facility] Comment on above: The Troponin units o f report have been changed to meet the Chest Pain Accreditation requirement, element EC5.M1l2. Troponin units are changed from pg/ml to ng/L. Also, the decimal is removed and results are in whole numbers. Urea nitrogen [Mass/volume] in Serum or PlasmaOrdered By: PROVIDER TEMP on 06-05-2025 Urea nitrogen [Mass/Vol] 9 mg/dL Normal 7-25 [facility] Comment on above: Performed By: #### B MP, LIPASE, HEPATIC, CBC #### [facility] [address] [place] [address] [place] Alanine aminotransferase [En zymatic activity/volume] in Serum or PlasmaOrdered By: Kenny Marsh on 04-19-2025 ALT [Catalytic activity/Vol] 14 U/L Normal 7-52 [facility] Comment on above: Performed By: #### B MP, LIPASE, HEPATIC, CBC #### [facility] [address] [place] [address] [place] Albumin [Mass/volume] in Ser um or Plasma by Bromocresol green (BCG) dye binding methoOrdered By: Kenny Marsh on 04-19-2025 Albumin BCG dye [Mass/Vol] 4.1 g/dL 3.5-5.7 [facility] Alkaline phosphatase [Enzyma tic activity/volume] in Serum or PlasmaOrdered By: Kenny Marsh on 04-19-2025 ALP [Catalytic activity/Vol] 51 U/L Normal 34-104 [facility] Comment on above: Performed By: #### B MP, LIPASE, HEPATIC, CBC #### [facility] [address] [place] [address] Appearance of UrineOrdered B y: Kenny Marsh on 04-19-2025 Appearance (U) Cloudy Critically abnormal Clear [facility] Comment on above: Order Comment: Name Collection Type:: Clean-Voided Midstream Performed By: #### C UU, UHCG, ADDONUAPLUS #### [address] Aspartate aminotransferase [ Enzymatic activity/volume] in Serum or PlasmaOrdered By: Kenny Marsh on 04-19-2025 AST [Catalytic activity/Vol] 14 U/L Normal 13-39 [facility] Comment on above: Performed By: #### B MP, LIPASE, HEPATIC, CBC #### [address] Bacteria [Presence] in Urine by AutomatedOrdered By: Kenny Marsh on 04-19-2025 Bacteria Auto Ql (U) None seen [HPF] None Seen [facility] Basic Metabolic Panelon 04-01 Creatinine Clr Calc Pharmacy 184.69 Normal [facility] Comment on above: Performed By: #### B MP, LIPASE, HEPATIC, CBC #### [address] GFR/1.73 sq M.predicted MDRD (S/P/Bld) [Vol rate/Area] mL/min/{1.73_m2} Normal [facility] Comment on above: Performed By: #### B MP, LIPASE, HEPATIC, CBC #### [place] [address] [place] Basophils [#/volume] in Bloo d by Automated countOrdered By: Kenny Marsh on 04-19-2025 Basophils (Bld) [#/Vol] 0.1 10*3/uL Normal 0.0-0.2 [facility] Comment on above: Result Comment: PERF ORMED BY: [place] [address] PATHOLOGIST SECTION 8 PROPERTY MANAGER SAM MONTANO M.D. Performed By: #### B MP, LIPASE, HEPATIC, CBC #### [address] Basophils/100 leukocytes in Blood by Automated countOrdered By: Kenny Marsh on 04-19-2025 Basophils/100 WBC (Bld) 0.6 % Normal . [facility] Comment on above: Performed By: #### B MP, LIPASE, HEPATIC, CBC #### [facility] [address] [place] [address] Bilirubin Test strip Ql (U)O rdered By: Kenny Marsh on 04-19-2025 Bilirubin Ql (U) Negative Negative [facility] Bilirubin.direct [Mass/volum e] in Serum or PlasmaOrdered By: Kenny Marsh on 04-19-2025 Bilirubin.direct [Mass/Vol] 0.10 mg/dL 0.03-0.18 [facility] Bilirubin.total [Mass/volume ] in Serum or PlasmaOrdered By: Kenny Marsh on 04-19-2025 Bilirubin [Mass/Vol] 0.5 mg/dL Normal 0.3-1.0 [facility] Comment on above: Performed By: #### B MP, LIPASE, HEPATIC, CBC #### [facility] [address] [place] [address] CT abdomen pelvis w conon CT abdomen pelvis w con [facility] [place] [address] CT Scan Report Signed Patient: Neisha Engel MR#: [id number] : 1990 Acct:[id number] Age/Sex: 34 / F ADM Date: 04/19/25 Loc: ER Room: Type: [facility] ER Attending Dr: Copies to: Kenny Marsh DO Ordering Provider: Kenny Marsh DO Date of Service: 04/19/25 CT/CT abdomen pelvis w con: Abdominal Pain CT abdomen pelvis w con 04/19/2025 8:03 AM SIGNS AND SYMPTOMS: Abdominal pain, nausea and vomiting, diarrhea TECHNIQUE: Multidetector ct axial images of the abdomen and pelvis were obtained without IV contrast. Multiplanar reformats were performed and reviewed to further define anatomy and possible pathology. CT was performed with one or more of the following dose reduction techniques: Automated exposure control, adjustment of the mA and/or kV according to patient size, or use of iterative reconstruction technique. COMPARISON: 01/26/2022 FINDINGS: Lower Chest: Within normal limits. ABDOMEN: Liver: Within normal limits. Bile Ducts: Normal caliber. Gallbladder: No calcified gallstones. Normal caliber wall. Pancreas: Within normal limits. Spleen: Within normal limits. Adrenals: Within normal limits. Kidneys: There is a simple cyst in the left renal cortex requiring no further follow-up. Pelvis: Reproductive Organs: There is a 3.5 cm dominant follicle or cyst in the right adnexa. Ureters: Within normal limits. Bladder: Within normal limits. Bowel: Normal caliber. There is evidence of prior appendectomy. Mesenteric Lymph Nodes: No enlarged mesenteric lymph nodes. Peritoneum: No ascites or free air, no fluid collection. Vessels: within normal limits Retroperitoneum: Within normal limits. Abdominal Wall: Within normal limits. Bones: Degenerative changes are noted in the sacroiliac joints. CT/CT abdomen pelvis w con IMPRESSION: No bowel obstruction or obstructive uropathy. No free fluid or free air. There is a 3.5 cm dominant follicle or cyst in the right adnexa. Impression dictated by: Crow Rendon M.D. 04/19/2025 9:27 AM Dictation Location: [place] [address] Transcribed By: [facility] 04/19/2527 Dictated By: Crow Rendon II, MD 04/19/25 0918 Signed By: 04/19/25 0927 Normal [facility] Calcium [Mass/volume] in Ser um or PlasmaOrdered By: Kenny Marsh on 04-19-2025 Calcium [Mass/Vol] 8.7 mg/dL Normal 8.6-10.3 [facility] Comment on above: Performed By: #### B MP, LIPASE, HEPATIC, CBC #### [facility] [address] [place] [address] [place] Carbon dioxide, total [Moles /volume] in Serum or PlasmaOrdered By: Kenny Marsh on 04-19-2025 CO2 [Moles/Vol] 23.6 mmol/L Normal 21.0-31.0 [facility] Comment on above: Performed By: #### B MP, LIPASE, HEPATIC, CBC #### [facility] [address] [place] [id number] [place] Chloride [Moles/volume] in S alanna or PlasmaOrdered By: Kenny Marsh on 04-19-2025 Chloride [Moles/Vol] 108 mmol/L High 98-107 [facility] Comment on above: Performed By: #### B MP, LIPASE, HEPATIC, CBC #### [address] Color of Urine by AutoOrdere d By: Kenny Marsh on 04-19-2025 Color (U) Light-yellow Normal Yellow [facility] Comment on above: Order Comment: Name Collection Type:: Clean-Voided Midstream Performed By: #### C UU, UHCG, ADDONUAPLUS #### [address] Complete Blood Count Auto Di ffon 04-19-2025 Mean Corpuscular HGB Conc 34.1 g/dL Normal 32.0-35.0 [facility] Comment on above: Performed By: #### B MP, LIPASE, HEPATIC, CBC #### [address] Monocytes/100 WBC (Bld) 19.30 % Normal 0.00-20.00 [facility] Comment on above: Performed By: #### B MP, LIPASE, HEPATIC, CBC #### [address] NRBC% 0.1 /100{WBC} Normal 0-0.5 [facility] Comment on above: Performed By: #### B MP, LIPASE, HEPATIC, CBC #### [address] Creatinine [Mass/volume] in Serum or PlasmaOrdered By: Kenny Marsh on 04-19-2025 Creatinine [Mass/Vol] 0.58 mg/dL Low 0.60-1.20 [facility] Comment on above: Performed By: #### B MP, LIPASE, HEPATIC, CBC #### [address] Crystals.amorphous [Presence ] in Urine by Computer assisted methodOrdered By: Kenny Marsh on 04-19-2025 Crystals.amorphous Computer assisted Ql (U) 3+ [HPF] [facility] Dipstick and Microscopicon 0 04-19-2025 Amorphous Crystal,Urine 3+ Normal [facility] Comment on above: Order Comment: Name Collection Type:: Clean-Voided Midstream Performed By: #### C UU, UHCG, ADDONUAPLUS #### [facility] [address] [place] [address] [place] Bacteria,Urine None Seen Normal None Seen [facility] Comment on above: Order Comment: Name Collection Type:: Clean-Voided Midstream Performed By: #### C UU, UHCG, ADDONUAPLUS #### [facility] [address] [place] [address] [place] Bilirubin,Urine Negative Normal Negative [facility] Comment on above: Order Comment: Name Collection Type:: Clean-Voided Midstream Performed By: #### C UU, UHCG, ADDONUAPLUS #### [facility] [address] [place] [address] Glucose Ql (U) Normal Normal Normal [facility] Comment on above: Order Comment: Name Collection Type:: Clean-Voided Midstream Performed By: #### C UU, UHCG, ADDONUAPLUS #### [facility] [address] [place] [address] [place] Hyaline Casts,Urine None Normal 0-8 [facility] Comment on above: Order Comment: Name Collection Type:: Clean-Voided Midstream Performed By: #### C UU, UHCG, ADDONUAPLUS #### [facility] [address] [place] [address] [place] Mucus,Urine Rare Normal [facility] Comment on above: Order Comment: Name Collection Type:: Clean-Voided Midstream Performed By: #### C UU, UHCG, ADDONUAPLUS #### [facility] [address] [place] [address] [place] Nitrite,Urine Negative Normal Negative [facility] Comment on above: Order Comment: Name Collection Type:: Clean-Voided Midstream Performed By: #### C UU, UHCG, ADDONUAPLUS #### [facility] [address] [place] [address] [place] Occult Blood,Urine Negative Normal Negative [facility] Comment on above: Order Comment: Name Collection Type:: Clean-Voided Midstream Performed By: #### C UU, UHCG, ADDONUAPLUS #### [address] Protein,Urine Negative Normal Negative [facility] Comment on above: Order Comment: Name Collection Type:: Clean-Voided Midstream Performed By: #### C UU, UHCG, ADDONUAPLUS #### [address] RBC,Urine 3-4 Normal 0-4 [facility] Comment on above: Order Comment: Name Collection Type:: Clean-Voided Midstream Performed By: #### C UU, UHCG, ADDONUAPLUS #### [address] Specificy [place],Urine 1.024 Normal 1.001-1.03 0 [facility] Comment on above: Order Comment: Name Collection Type:: Clean-Voided Midstream Performed By: #### C UU, UHCG, ADDONUAPLUS #### [address] Squamous Epithelial Cell,Urine 3-4 High 0-2 [facility] Comment on above: Order Comment: Name Collection Type:: Clean-Voided Midstream Performed By: #### C UU, UHCG, ADDONUAPLUS #### [address] Urobilinogen,Urine Normal Normal Normal [facility] Comment on above: Order Comment: Name Collection Type:: Clean-Voided Midstream Performed By: #### C UU, UHCG, ADDONUAPLUS #### [place] [address] [place] WBC,Urine 10-19 High 0-4 [facility] Comment on above: Order Comment: Name Collection Type:: Clean-Voided Midstream Performed By: #### C UU, UHCG, ADDONUAPLUS #### [place] [address] [place] Eosinophils [#/volume] in Bl ood by Automated countOrdered By: Kenny Marsh on 04-19-2025 Eosinophils (Bld) [#/Vol] 0.1 10*3/uL Normal 0.0-0.45 [facility] Comment on above: Performed By: #### B MP, LIPASE, HEPATIC, CBC #### [facility] [address] Eosinophils/100 leukocytes i n Blood by Automated countOrdered By: Kenny Marsh on 04-19-2025 Eosinophils/100 WBC (Bld) 0.8 % Normal . [facility] Comment on above: Performed By: #### B MP, LIPASE, HEPATIC, CBC #### [facility] [address] Epithelial cells.squamous [# /area] in Urine sediment by Automated countOrdered By: Kenny Marsh on 04-19-2025 Epithelial cells.squamous Auto (Urine sed) [#/Area] 3-4 [HPF] High 0-2 [facility] Erythrocyte distribution wid th [Ratio] by Automated countOrdered By: Kenny Marsh on 04-19-2025 Erythrocyte distribution width (RBC) [Ratio] 13.2 % Normal 11.9-15.3 [facility] Comment on above: Performed By: #### B MP, LIPASE, HEPATIC, CBC #### [facility] [address] Erythrocytes [#/area] in Uri ne sediment by Automated countOrdered By: Kenny Marsh on 04-19-2025 RBC Auto (Urine sed) [#/Area] 3-4 [HPF] 0-4 [facility] Erythrocytes [#/volume] in B lood by Automated countOrdered By: Kenny Marsh on 04-19-2025 RBC (Bld) [#/Vol] 4.74 10*6/uL Normal 3.60-5.00 [facility] Comment on above: Performed By: #### B MP, LIPASE, HEPATIC, CBC #### [place] [address] [place] Glucose [Mass/volume] in Ser um or PlasmaOrdered By: Kenny Marsh on 04-19-2025 Glucose [Mass/Vol] 94 mg/dL Normal 70-100 [facility] Comment on above: ADA recommended refe rence rangeRandom Glucose Reference Range is dependent on time and content of last meal. Glucose of more than 200 mg/dL in a nonstressed, ambulatory subject supports the diagnosis of Diabetes Mellitus. Result Comment: [place] Glucose Reference Range is dependent on time and content of last meal. Glucose of more than 200 mg/dL in a nonstressed, ambulatory subject supports the diagnosis of Diabetes Mellitus. ADA recommended reference range Performed By: #### B MP, LIPASE, HEPATIC, CBC #### [address] Glucose [Mass/volume] in Uri ne by Test stripOrdered By: Kenny Marsh on 04-19-2025 Glucose Test strip (U) [Mass/Vol] Normal mg/dL Normal [facility] HCG ( test) IA.rapi d Ql (U)Ordered By: Kenny Marsh on 04-19-2025 HCG ( test) Ql (U) Negative [facility] HCG,Urineon 04-19-2025 Beta HCG ( test) Ql (U) Negative Normal [facility] Comment on above: Order Comment: Name Collection Type:: Clean-Voided Midstream Result Comment: PERF ORMED BY: [place] [address] PATHOLOGIST SECTION 8 [employer]ERTY MANAGER SAM MONTANO M.D. Performed By: #### C UU, UHCG, ADDONUAPLUS #### [address] Hematocrit [Volume Fraction] of Blood by Automated countOrdered By: Kenny Marsh on 04-19-2025 Hematocrit (Bld) [Volume fraction] 39.0 % Normal 34.0-46.4 [facility] Comment on above: Performed By: #### B MP, LIPASE, HEPATIC, CBC #### [address] Hemoglobin Test strip Ql (U) Ordered By: Kenny Marsh on 04-19-2025 Hemoglobin Ql (U) Negative Negative [facility] Hemoglobin [Mass/volume] in BloodOrdered By: Kenny Marsh on 04-19-2025 Hemoglobin (Bld) [Mass/Vol] 13.3 g/dL Normal 11.8-15.4 [facility] Comment on above: Performed By: #### B MP, LIPASE, HEPATIC, CBC #### [facility] [address] Hepatic Panelon 04-19-2025 Albumin [Mass/Vol] 4.1 g/dL Normal 3.5-5.7 [facility] Comment on above: Performed By: #### B MP, LIPASE, HEPATIC, CBC #### [facility] [address] Bilirubin,Indirect 0.4 mg/dL Normal [facility] Comment on above: Performed By: #### B MP, LIPASE, HEPATIC, CBC #### [facility] [address] Bilirubin.indirect [Mass/Vol] 0.10 mg/dL Normal 0.03-0.18 [facility] Comment on above: Performed By: #### B MP, LIPASE, HEPATIC, CBC #### [facility] [address] Hyaline casts [#/area] in Ur ine sediment by Automated countOrdered By: Kenny Marsh on 04-19-2025 Hyaline casts Auto (Urine sed) [#/Area] None [LPF] 0-8 [facility] INR in Platelet poor plasma by Coagulation assayOrdered By: Kenny Marsh on 04-19-2025 INR Coag (PPP) [Relative time] 0.9 {INR} Normal [facility] Comment on above: INR Therapeutic Rang e A) Pre- and Peroperative OAT started two weeks before surgery. NOT HIP SURGERY: 1.5 - 2.5 HIP SURGERY: 2 - 3B) Primary and secondary prevention of venous THROMBOSIS: 2 - 3C) Active venous thrombosis, pulmonary embolismand prevention of recurrent venous thrombosis: 2 - 3D) Prevention of arterial thromboembolismincluding patients with mechanical heart valves: 3 - 4.5 Result Comment: INR Therapeutic Range A) Pre- and Peroperative OAT started two weeks before surgery. NOT HIP SURGERY: 1.5 - 2.5 HIP SURGERY: 2 - 3 B) Primary and secondary prevention of venous THROMBOSIS: 2 - 3 C) Active venous thrombosis, pulmonary embolism and prevention of recurrent venous thrombosis: 2 - 3 D) Prevention of arterial thromboembolism including patients with mechanical heart valves: 3 - 4.5 Performed By: #### B MP, LIPASE, HEPATIC, CBC #### [address] Ketones [Presence] in Urine by Test stripOrdered By: Kenny Marsh on 04-19-2025 Ketones Ql (U) Negative Normal Negative [facility] Comment on above: Order Comment: Name Collection Type:: Clean-Voided Midstream Performed By: #### C UU, UHCG, ADDONUAPLUS #### [address] Leukocyte esterase [Presence ] in Urine by Test stripOrdered By: Kenny Marsh on 04-19-2025 Leukocyte esterase Test strip Ql (U) 3+ High Negative [facility] Comment on above: Order Comment: Name Collection Type:: Clean-Voided Midstream Performed By: #### C UU, UHCG, ADDONUAPLUS #### [place] [address] [place] Leukocytes [#/area] in Urine sediment by Automated countOrdered By: Kenny Marsh on 04-19-2025 WBC Auto (Urine sed) [#/Area] 10-19 [HPF] High 0-4 [facility] Leukocytes [#/volume] correc tiffanie for nucleated erythrocytes in Blood by Automated counOrdered By: Kenny Marsh on 04-19-2025 WBC corrected for nucl RBC Auto (Bld) [#/Vol] 8.2 10*3/uL 3.8-11.6 [facility] Leukocytes [#/volume] in Blo od by Automated countOrdered By: Kenny Marsh on 04-19-2025 WBC (Bld) [#/Vol] 8.2 10*3/uL Normal 3.8-11.6 [facility] Comment on above: Performed By: #### B MP, LIPASE, HEPATIC, CBC #### [address] [place] [address] [place] Lipase [Enzymatic activity/v olume] in Serum or PlasmaOrdered By: Kenny Marsh on 04-19-2025 Lipase [Catalytic activity/Vol] 16.0 U/L Normal 11.0-82.0 [facility] Comment on above: Result Comment: PERF ORMED BY: [place] [address] PATHOLOGIST SECTION 8 [employer]ERTY MANAGER SAM MONTANO M.D. Performed By: #### B MP, LIPASE, HEPATIC, CBC #### [address] Lymphocytes [#/volume] in Bl ood by Automated countOrdered By: Kenny Marsh on 04-19-2025 Lymphocytes (Bld) [#/Vol] 2.6 10*3/uL Normal 1.00-4.8 [facility] Comment on above: Performed By: #### B MP, LIPASE, HEPATIC, CBC #### [address] Lymphocytes/100 leukocytes i n Blood by Automated countOrdered By: Kenny Marsh on 04-19-2025 Lymphocytes/100 WBC (Bld) 31.6 % Normal . [facility] Comment on above: Performed By: #### B MP, LIPASE, HEPATIC, CBC #### [address] MCH [Entitic mass] by Automa tiffanie countOrdered By: Kenny Marsh on 04-19-2025 MCH (RBC) [Entitic mass] 28.0 pg Normal 24.7-34.3 [facility] Comment on above: Performed By: #### B MP, LIPASE, HEPATIC, CBC #### [address] MCHC Auto (RBC) [Mass/Vol]Or dered By: Kenny Marsh on 04-19-2025 MCHC (RBC) [Mass/Vol] 34.1 g/dL 32.0-35.0 [facility] MCV [Entitic volume] by Auto mated countOrdered By: Kenny Marsh on 04-19-2025 MCV (RBC) [Entitic vol] 82.3 fL Normal 80-100 [facility] Comment on above: Performed By: #### B MP, LIPASE, HEPATIC, CBC #### [address] Monocyte distribution width [Entitic volume] in Blood by AutomatedOrdered By: Kenny Marsh on 04-19-2025 Monocyte distribution width Auto (Bld) [Entitic vol] 19.30 % 0.00-20.00 [facility] Monocytes [#/volume] in Bloo d by Automated countOrdered By: Kenny Marsh on 04-19-2025 Monocytes (Bld) [#/Vol] 0.7 10*3/uL Normal 0.0-0.8 [facility] Comment on above: Performed By: #### B MP, LIPASE, HEPATIC, CBC #### [address] Monocytes/100 leukocytes in Blood by Automated countOrdered By: Kenny Marsh on 04-19-2025 Monocytes/100 WBC (Bld) 8.4 % Normal . [facility] Comment on above: Performed By: #### B MP, LIPASE, HEPATIC, CBC #### [address] Mucus [Presence] in Urine by AutomatedOrdered By: Kenny Marsh on 04-19-2025 Mucus Auto Ql (U) Rare [LPF] [facility] Neutrophils [#/volume] in Bl ood by Automated countOrdered By: Kenny Marsh on 04-19-2025 Neutrophils (Bld) [#/Vol] 4.8 10*3/uL Normal 1.8-7.7 [facility] Comment on above: Performed By: #### B MP, LIPASE, HEPATIC, CBC #### [address] Neutrophils/100 leukocytes i n Blood by Automated countOrdered By: Kenny Marsh on 04-19-2025 Neutrophils/100 WBC (Bld) 58.6 % Normal . [facility] Comment on above: Performed By: #### B MP, LIPASE, HEPATIC, CBC #### [facility] [address] Nitrite Test strip Ql (U)Ord ered By: Kenny Marsh on 04-19-2025 Nitrite Ql (U) Negative Negative [facility] No Panel InformationOrdered By: Kenny Marsh on 04-19-2025 Estimated GFR (CKD-EPI) > 60.0 mL/Min [facility] Creatinine Clearance (Chem 184.69 [facility] Nucleated erythrocytes [Pres ence] in Blood by Automated countOrdered By: Kenny Marsh on 04-19-2025 Nucleated RBC Auto Ql (Bld) 0.1 /100{WBC} 0-0.5 [facility] Partial Thromboplastin Timeo n 04-19-2025 aPTT Coag (Bld) [Time] 26.2 s Normal 25.1-36.5 [facility] Comment on above: Result Comment: A he matocrit value greater than 55% may lead to inaccurate results in coagulation testing. Patients having hematocrit values >55% require a special collection tube for coagulation studies. Please contact the laboratory at [phone] for redraw instructions. PERFORMED BY: [address] [place] [address] PATHOLOGIST SECTION 8 [employer]ERTY MANAGER SAM MONTANO M.D. Performed By: #### B MP, LIPASE, HEPATIC, CBC #### [address] Platelet mean volume [Entiti c volume] in Blood by Automated countOrdered By: Kenny Marsh on 04-19-2025 Platelet mean volume (Bld) [Entitic vol] 7.3 fL Normal 6.3-10.7 [facility] Comment on above: Performed By: #### B MP, LIPASE, HEPATIC, CBC #### [place] [address] [place] Platelets [#/volume] in Bloo d by Automated countOrdered By: Kenny Marsh on 04-19-2025 Platelets (Bld) [#/Vol] 340 10*3/uL Normal 150-450 [facility] Comment on above: Performed By: #### B MP, LIPASE, HEPATIC, CBC #### [facility] [address] Potassium [Moles/volume] in Serum or PlasmaOrdered By: Kenny Marsh on 04-19-2025 Potassium [Moles/Vol] 3.9 mmol/L Normal 3.5-5.1 [facility] Comment on above: Performed By: #### B MP, LIPASE, HEPATIC, CBC #### [facility] [address] Protein Test strip (U) [Mass /Vol]Ordered By: Kenny Marsh on 04-19-2025 Protein (U) [Mass/Vol] Negative Negative [facility] Protein [Mass/volume] in Ser um or PlasmaOrdered By: Kenny Marsh on 04-19-2025 Protein [Mass/Vol] 6.6 g/dL Normal 6.4-8.9 [facility] Comment on above: Performed By: #### B MP, LIPASE, HEPATIC, CBC #### [address] Prothrombin time (PT)Ordered By: Kenny Marsh on 04-19-2025 PT Coag (PPP) [Time] 10.7 s Normal 9.0-12.9 [facility] Comment on above: A hematocrit value g reater than 55% may lead to inaccurate results in coagulation testing. Patients having hematocrit values >55% require a special collection tube for coagulation studies. Please contact the laboratory at [phone] for redraw instructions. Result Comment: A he matocrit value greater than 55% may lead to inaccurate results in coagulation testing. Patients having hematocrit values >55% require a special collection tube for coagulation studies. Please contact the laboratory at [phone] for redraw instructions. Performed By: #### B MP, LIPASE, HEPATIC, CBC #### [address] Serum globulin measurement b y calculation (mass/volume)Ordered By: Kenny Marsh on 04-19-2025 Globulin (S) [Mass/Vol] 2.5 g/dL Normal [facility] Comment on above: Performed By: #### B MP, LIPASE, HEPATIC, CBC #### [address] Serum or plasma albumin/glob ulin mass ratioOrdered By: Kenny Marsh on 04-19-2025 Albumin/Globulin [Mass ratio] 1.6 {ratio} Normal [facility] Comment on above: Performed By: #### B MP, LIPASE, HEPATIC, CBC #### [address] Serum or plasma anion gap de terminationOrdered By: Kenny Marsh on 04-19-2025 Anion gap [Moles/Vol] 9.3 mmol/L Normal 6.0-15.0 [facility] Comment on above: Performed By: #### B MP, LIPASE, HEPATIC, CBC #### [address] Serum or plasma non-glucuron idated bilirubin measurement (mass/volume)Ordered By: Kenny Marsh on 04-19-2025 Bilirubin.indirect [Mass/Vol] 0.4 mg/dL [facility] Sodium [Moles/volume] in Ser um or PlasmaOrdered By: Kenny Marsh on 04-19-2025 Sodium [Moles/Vol] 137 mmol/L Normal 136-145 [facility] Comment on above: Performed By: #### B MP, LIPASE, HEPATIC, CBC #### [address] Specific gravity Test strip (U) [Rel density]Ordered By: Kenny Marsh on 04-19-2025 Specific gravity (U) [Rel density] 1.024 1.001-1.[address] [facility] Urea nitrogen [Mass/volume] in Serum or PlasmaOrdered By: Kenny Marsh on 04-19-2025 Urea nitrogen [Mass/Vol] 10 mg/dL Normal 7-25 [facility] Comment on above: Performed By: #### B MP, LIPASE, HEPATIC, CBC #### [address] Urine Cultureon 04-19-2025 Bacteria identified Cx Nom (U) ORGANISM: Strep agalactiae - (group b) (O:STRAGA) [place] Count 20,000 PERFORMED BY: [place] [address] PATHOLOGIST SECTION 8 PROPERTY MANAGER SAM MONTANO M.D. Normal [facility] Comment on above: Performed By: #### C UU, UHCG, ADDONUAPLUS #### [facility] [address] [place], [place] [id number] [facility] Urine cultureOrdered By: Belia Marsh on 04-19-2025 Bacteria identified Cx Nom (U) Strep agalactiae - (group b) Abnormal [facility] Urobilinogen Test strip (U) [Mass/Vol]Ordered By: Kenny Marsh on 04-19-2025 Urobilinogen (U) [Mass/Vol] Normal mg/dL Normal [facility] aPTT in Platelet poor plasma by Coagulation assayOrdered By: Kenny Marsh on 04-19-2025 aPTT Coag (PPP) [Time] 26.2 s 25.1-36.5 [facility] Comment on above: A hematocrit value g reater than 55% may lead to inaccurate results in coagulation testing. Patients having hematocrit values >55% require a special collection tube for coagulation studies. Please contact the laboratory at [phone] for redraw instructions. pH of Urine by Test stripOrd ered By: Kenny Marsh on 04-19-2025 pH (U) 6.5 [pH] Normal 5.0-9.0 [facility] Comment on above: Order Comment: Name Collection Type:: Clean-Voided Midstream Performed By: #### C UU, UHCG, ADDONUAPLUS #### [facility] [address] [place], [place] [id number] [facility] Laboratory - Microbiology an d Antimicrobial susceptibilityon 10-29-2024 SARS-CoV-2 (COVID-19) RNA ADRIAN+probe Ql (Unsp spec) Negative [facility] No Panel Informationon 10-29 FLU A Negative [facility] FLU B Negative [facility] Interpretation and review of laboratory results Normal [facility] S. pyogenes DNA ADRIAN+probe No m (Unsp spec)on 10-29-2024 Interpretation and review of laboratory results Abnormal [facility] RESULT Positive Negative [facility] Glucose Glucometer (BldC) [M ass/Vol]Ordered By: Chano Ulloa on 07-20-2024 Glucose [Mass/Vol] 85 mg/dL [facility] Comment on above: Random Glucose Refer ence Range is dependent on time and content of last meal. Glucose of more than 200 mg/dL in a nonstressed, ambulatory subject supports the diagnosis of Diabetes Mellitus. Glucose [Mass/Vol] Capillary blood gluc ose measurement by glucometer (mass/volume) [facility] Comment on above: Random Glucose Refer ence Range is dependent on time and content of last meal. Glucose of more than 200 mg/dL in a nonstressed, ambulatory subject supports the diagnosis of Diabetes Mellitus. HCG ( test) IA.rapi d Ql (U)Ordered By: Chano Ulloa on 07-20-2024 HCG ( test) Ql (U) Negative [facility] HCG ( test) Ql (U) Urine human chorionic gonadotropin (hCG) detection by immunoassay [facility] No Panel InformationOrdered By: Chano Ulloa on 07-20-2024 Miscellaneous Pathology Test See comment [facility] Comment on above: See report. Scanned copy available in EMR. Alanine aminotransferase [En zymatic activity/volume] in Serum or PlasmaOrdered By: Diana Archer on 05-10-2024 ALT [Catalytic activity/Vol] 17 U/L 7-52 [facility] Albumin [Mass/volume] in Ser um or Plasma by Bromocresol green (BCG) dye binding methoOrdered By: Diana Archer on 05-10-2024 Albumin BCG dye [Mass/Vol] 4.2 g/dL 3.5-5.7 [facility] Alkaline phosphatase [Enzyma tic activity/volume] in Serum or PlasmaOrdered By: Diana Archer on 05-10-2024 ALP [Catalytic activity/Vol] 60 U/L 34-104 [facility] Aspartate aminotransferase [ Enzymatic activity/volume] in Serum or PlasmaOrdered By: Diana Archer on 05-10-2024 AST [Catalytic activity/Vol] 15 U/L 13-39 [facility] Bacteria [Presence] in Urine by AutomatedOrdered By: Diana Archer on 05-10-2024 Bacteria Auto Ql (U) 1+ [HPF] High None Seen [facility] Basophils Auto (Bld) [#/Vol] Ordered By: Diana Archer on 05-10-2024 Basophils (Bld) [#/Vol] 0.0 10*3/uL 0.0-0.2 [facility] Basophils/100 WBC Auto (Bld) Ordered By: Diana Archer on 05-10-2024 Basophils/100 WBC (Bld) 0.5 % . [facility] Bilirubin Test strip Ql (U)O rdered By: Diana Archer on 05-10-2024 Bilirubin Ql (U) Negative Negative [facility] Bilirubin.total [Mass/volume ] in Serum or PlasmaOrdered By: Diana Archer on 05-10-2024 Bilirubin [Mass/Vol] 0.7 mg/dL 0.3-1.0 [facility] Calcium [Mass/volume] in Ser um or PlasmaOrdered By: Diana Archer on 05-10-2024 Calcium [Mass/Vol] 9.3 mg/dL 8.6-10.3 [facility] Carbon dioxide, total [Moles /volume] in Serum or PlasmaOrdered By: Diana Archer on 05-10-2024 CO2 [Moles/Vol] 25.4 mmol/L 21.0-31.0 [facility] Chloride [Moles/volume] in S alanna or PlasmaOrdered By: Diana Archer on 05-10-2024 Chloride [Moles/Vol] 108 mmol/L High 98-107 [facility] Color Auto (U)Ordered By: Mely Archer on 05-10-2024 Color (U) Light-yellow Yellow [facility] Creatinine [Mass/volume] in Serum or PlasmaOrdered By: Diana Archer on 05-10-2024 Creatinine [Mass/Vol] 0.67 mg/dL 0.60-1.20 [facility] Eosinophils Auto (Bld) [#/Vo l]Ordered By: Diana Archer 05-10-2024 Eosinophils (Bld) [#/Vol] 0.0 10*3/uL 0.0-0.45 [facility] Eosinophils/100 WBC Auto (Bl d)Ordered By: Diana Archer on 05-10-2024 Eosinophils/100 WBC (Bld) 0.6 % . [facility] Epithelial cells.squamous [# /area] in Urine sediment by Automated countOrdered By: Diana Archer on 05-10-2024 Epithelial cells.squamous Auto (Urine sed) [#/Area] 10-19 [HPF] High 0-2 [facility] Erythrocyte distribution wid th Auto (RBC) [Ratio]Ordered By: Diana Archer on 05-10-2024 Erythrocyte distribution width (RBC) [Ratio] 13.6 % 11.9-15.3 [facility] Erythrocytes [#/area] in Uri ne sediment by Automated countOrdered By: Diana Archer on 05-10-2024 RBC Auto (Urine sed) [#/Area] 5-9 [HPF] High 0-4 [facility] Globulin Calc (S) [Mass/Vol] Ordered By: Diana Archer 05-10-2024 Globulin (S) [Mass/Vol] 2.8 g/dL [facility] Glucose [Mass/volume] in Ser um or PlasmaOrdered By: Diana Archer 05-10-2024 Glucose [Mass/Vol] 82 mg/dL 70-100 [facility] Comment on above: ADA recommended refe rence rangeRandom Glucose Reference Range is dependent on time and content of last meal. Glucose of more than 200 mg/dL in a nonstressed, ambulatory subject supports the diagnosis of Diabetes Mellitus. Glucose [Mass/volume] in Uri ne by Test stripOrdered By: Diana Archer on 05-10-2024 Glucose Test strip (U) [Mass/Vol] Normal mg/dL Normal [facility] Hematocrit Auto (Bld) [Volum e fraction]Ordered By: Diana Archer 05-10-2024 Hematocrit (Bld) [Volume fraction] 39.6 % 34.0-46.4 [facility] Hemoglobin Test strip Ql (U) Ordered By: Diana Archer 05-10-2024 Hemoglobin Ql (U) Negative Negative [facility] Hemoglobin [Mass/volume] in BloodOrdered By: Diana Archer on 05-10-2024 Hemoglobin (Bld) [Mass/Vol] 13.5 g/dL 11.8-15.4 [facility] Hyaline casts [#/area] in Ur ine sediment by Automated countOrdered By: Diana Archer on 05-10-2024 Hyaline casts Auto (Urine sed) [#/Area] None [LPF] 0-8 [facility] Ketones Test strip Ql (U)Ord ered By: Diana Archer on 05-10-2024 Ketones Ql (U) Negative Negative [facility] Leukocyte esterase [Presence ] in Urine by Test stripOrdered By: Diana Archer on 05-10-2024 Leukocyte esterase Test strip Ql (U) 4+ High Negative [facility] Leukocytes [#/area] in Urine sediment by Automated countOrdered By: Diana Archer on 05-10-2024 WBC Auto (Urine sed) [#/Area] 5-9 [HPF] High 0-4 [facility] Leukocytes [#/volume] correc tiffanie for nucleated erythrocytes in Blood by Automated counOrdered By: Diana Archer on 05-10-2024 WBC corrected for nucl RBC Auto (Bld) [#/Vol] 6.2 10*3/uL 3.8-11.6 [facility] Lipase [Enzymatic activity/v olume] in Serum or PlasmaOrdered By: Diana Archer 05-10-2024 Lipase [Catalytic activity/Vol] 12.0 U/L 11.0-82.0 [facility] Lymphocytes Auto (Bld) [#/Vo l]Ordered By: Diana Archer on 05-10-2024 Lymphocytes (Bld) [#/Vol] 1.8 10*3/uL 1.00-4.8 [facility] Lymphocytes/100 WBC Auto (Bl d)Ordered By: Diana Archer on 05-10-2024 Lymphocytes/100 WBC (Bld) 28.8 % . [facility] MCH Auto (RBC) [Entitic mass ]Ordered By: Diana Archer on 05-10-2024 MCH (RBC) [Entitic mass] 27.8 pg 24.7-34.3 [facility] MCHC Auto (RBC) [Mass/Vol]Or dered By: Diana Archer on 05-10-2024 MCHC (RBC) [Mass/Vol] 34.2 g/dL 32.0-35.0 [facility] MCV Auto (RBC) [Entitic vol] Ordered By: Diana Archer on 05-10-2024 MCV (RBC) [Entitic vol] 81.2 fL 80-100 [facility] Monocyte distribution width [Entitic volume] in Blood by AutomatedOrdered By: Diana Archer on 05-10-2024 Monocyte distribution width Auto (Bld) [Entitic vol] 19.95 % 0.00-20.00 [facility] Monocytes Auto (Bld) [#/Vol] Ordered By: Diana Archer on 05-10-2024 Monocytes (Bld) [#/Vol] 0.5 10*3/uL 0.0-0.8 [facility] Monocytes/100 WBC Auto (Bld) Ordered By: Diana Archer on 05-10-2024 Monocytes/100 WBC (Bld) 7.3 % . [facility] Mucus [Presence] in Urine by AutomatedOrdered By: Diana Archer on 05-10-2024 Mucus Auto Ql (U) Rare [LPF] [facility] Neutrophils Auto (Bld) [#/Vo l]Ordered By: Diana Archer on 05-10-2024 Neutrophils (Bld) [#/Vol] 3.9 10*3/uL 1.8-7.7 [facility] Neutrophils/100 WBC Auto (Bl d)Ordered By: Diana Archer on 05-10-2024 Neutrophils/100 WBC (Bld) 62.8 % . [facility] Nitrite Test strip Ql (U)Ord ered By: Diana Archer on 05-10-2024 Nitrite Ql (U) Negative Negative [facility] No Panel InformationOrdered By: Diana Archer on 05-10-2024 Estimated GFR (CKD-EPI) > 60.0 mL/Min [facility] Creatinine Clearance (Chem 159.61 [facility] Nucleated erythrocytes [Pres ence] in Blood by Automated countOrdered By: Diana Archer on 05-10-2024 Nucleated RBC Auto Ql (Bld) 0.2 /100{WBC} 0-0.5 [facility] Platelet mean volume Auto (B ld) [Entitic vol]Ordered By: Diana Archer on 05-10-2024 Platelet mean volume (Bld) [Entitic vol] 6.9 fL 6.3-10.7 [facility] Platelets Auto (Bld) [#/Vol] Ordered By: Diana Archer on 05-10-2024 Platelets (Bld) [#/Vol] 350 10*3/uL 150-450 [facility] Potassium [Moles/volume] in Serum or PlasmaOrdered By: Diana Archer on 05-10-2024 Potassium [Moles/Vol] 3.8 mmol/L 3.5-5.1 [facility] Protein Test strip (U) [Mass /Vol]Ordered By: Diana Archer on 05-10-2024 Protein (U) [Mass/Vol] Negative Negative [facility] Protein [Mass/volume] in Ser um or PlasmaOrdered By: Diana Archer on 05-10-2024 Protein [Mass/Vol] 7.0 g/dL 6.4-8.9 [facility] RBC Auto (Bld) [#/Vol]Ordere d By: Diana Archer on 05-10-2024 RBC (Bld) [#/Vol] 4.88 10*6/uL 3.60-5.00 [facility] Serum or plasma albumin/glob ulin mass ratioOrdered By: Diana Archer 05-10-2024 Albumin/Globulin [Mass ratio] 1.5 {ratio} [facility] Serum or plasma anion gap de terminationOrdered By: Diana Archer 05-10-2024 Anion gap [Moles/Vol] 9.4 mmol/L 6.0-15.0 [facility] Sodium [Moles/volume] in Ser um or PlasmaOrdered By: Diana Archer 05-10-2024 Sodium [Moles/Vol] 139 mmol/L 136-145 [facility] Specific gravity Test strip (U) [Rel density]Ordered By: Diana Archer 05-10-2024 Specific gravity (U) [Rel density] 1.013 1.001-1.[address] [facility] Urea nitrogen [Mass/volume] in Serum or PlasmaOrdered By: Diana Archer on 05-10-2024 Urea nitrogen [Mass/Vol] 9 mg/dL 7- [facility] Urine appearanceOrdered By: Diana Archer on 05-10-2024 Appearance (U) Cloudy Abnormal Clear [facility] Urine culture routineOrdered By: Diana Archer on 05-10-2024 Bacteria identified Cx Nom (U) [address] [facility] Urobilinogen Test strip (U) [Mass/Vol]Ordered By: Diana Archer on 05-10-2024 Urobilinogen (U) [Mass/Vol] Normal mg/dL Normal [facility] WBC Auto (Bld) [#/Vol]Ordere d By: Diana Archer on 05-10-2024 WBC (Bld) [#/Vol] 6.2 10*3/uL 3.8-11.6 [facility] pH Test strip (U)Ordered By: Diana Archer on 05-10-2024 pH (U) 5.5 [pH] 5.0-9.0 [facility] BI MAMMOGRAM SCREENING TOMOS ABELIS BILATERALon 11-27-2023 BI MAMMOGRAM SCREENING TOMOSYNTHESIS BILATERAL [...] IS VERY IMPORTANT TO YOUR HEALTH. THE [place] [employer] GUIDELINES RECOMMEND THAT WOMEN 40 [...] Amylase [Catalytic activity/Vol] 41 U/L Normal 25-115 [facility] Comment on above: Performed By: #### L IPA, CMP, CHERRY #### [facility] [address] [place] [address] Dr. Kate Oconnor CBC AUTO DIFFon 02-06-2023 BASO # 0.0 103/ul Normal 0.0-0.1 [facility] Comment on above: Performed By: #### C BC #### [facility] [address] [place] [address] Dr. Kate Oconnor Basophils/100 WBC (Bld) 0.2 % Normal 0.2-2.0 [facility] Comment on above: Performed By: #### C BC #### [facility] [address] [place] [address] Dr. Kate Oconnor EO # 0.1 103/ul Normal 0.0-0.7 [facility] Comment on above: Performed By: #### C BC #### [facility] [address] [place] [address] Dr. Kate Oconnor Eosinophils/100 WBC (Bld) 0.5 % Critically low 0.9-7.0 [facility] Comment on above: Performed By: #### C BC #### [facility] [address] [place] [address] Dr. Kate Oconnor Erythrocyte distribution width (RBC) [Ratio] 13.0 % Normal 11.0-15.0 [facility] Comment on above: Performed By: #### C BC #### [facility] [address] [place] [address] Dr. Kate Oconnor Hematocrit (Bld) [Volume fraction] 41.5 % Normal 36.0-48.0 [facility] Comment on above: Performed By: #### C BC #### [facility] [address] [place] [address] Dr. Kate Oconnor Hemoglobin (Bld) [Mass/Vol] 13.7 g/dL Normal 12.0-16.0 [facility] Comment on above: Performed By: #### C BC #### [facility] [address] [place] [address] Dr. Kate Oconnor IG # 0.05 10e3/ul Critically high 0.00-0.03 [facility] Comment on above: Performed By: #### C BC #### [facility] [address] [place] [address] Dr. Kate Oconnor IG % 0.3 % Normal 0.0-0.5 [facility] Comment on above: Performed By: #### C BC #### [facility] [address] [place] [address] Dr. Kate Oconnor LYMPH # 2.8 103/ul Normal 1.2-3.8 [facility] Comment on above: Performed By: #### C BC #### [facility] [address] [place] [address] Dr. Kate Oconnor Lymphocytes/100 WBC (Bld) 18.6 % Critically low 20.5-60.0 [facility] Comment on above: Performed By: #### C BC #### [facility] [address] [place] [address] Dr. Kate Oconnor MANUAL DIFF REQ NO Normal [facility] Comment on above: Performed By: #### C BC #### [facility] [address] [place] [address] Dr. Kate Oconnor MCH (RBC) [Entitic mass] 27.2 pg Normal 26.7-34.0 [facility] Comment on above: Performed By: #### C BC #### [facility] [address] [place] [address] Dr. Kate Oconnor MCHC (RBC) [Mass/Vol] 33.0 g/dL Normal 29.9-35.2 [facility] Comment on above: Performed By: #### C BC #### [facility] [address] [address] [address] Kate Oconnor MCV (RBC) [Entitic vol] 82.5 fL Normal 81.0-99.0 [facility] Comment on above: Performed By: #### C BC #### [facility] [address] [address] [address] Kate Oconnor MONO # 0.9 103/ul Critically high 0.3-0.8 [facility] Comment on above: Performed By: #### C BC #### [facility] [address] [place] [address] Dr. Kate Oconnor Monocytes/100 WBC (Bld) 5.7 % Normal 1.7-12.0 [facility] Comment on above: Performed By: #### C BC #### [facility] [address] [place] [address] Dr. Kate Oconnor NEUT # 11.2 103/ul Critically high 1.4-6.5 [facility] Comment on above: Performed By: #### C BC #### [facility] [address] [place] [address] Dr. Kate Oconnor Neutrophils/100 WBC (Bld) 74.7 % Normal 43.0-75.0 [facility] Comment on above: Performed By: #### C BC #### [facility] [address] [place] [address] Dr. Kate Oconnor Platelet mean volume (Bld) [Entitic vol] 8.9 fL Critically low 9.5-13.5 [facility] Comment on above: Performed By: #### C BC #### [facility] [address] [place] [address] Dr. Kate Oconnor PLT 383 103/ul Normal 150-450 [facility] Comment on above: Performed By: #### C BC #### [facility] [address] [place] [address] Dr. Kate Oconnor RBC 5.03 106/ul Normal 4.20-5.40 [facility] Comment on above: Performed By: #### C BC #### [facility] [address] [address] [address] Kate Oconnor WBC 15.0 103/ul Critically high 4.0-11.0 [facility] Comment on above: Performed By: #### C BC #### [facility] [address] [address] [address] ABD/PELV W CONon 02-07-[address] ABD/PELV W CON EXAMINATION: CT ABD/ PELV W CON HISTORY: Tenderness of right lower quadrant of abdomen COMPARISON: None. TECHNIQUE: CT of abdomen/pelvis with IV and oral contrast. Dose reduction techniques were achieved by using automated exposure control and/or adjustment of mA and/or kV according to patient size and/or use of iterative reconstruction technique. FINDINGS: Engineering Manager: No pertinent findings, which are not [...] by: OZ RICCI Date: 2023-02-06 17:22 Normal [facility] CULTURE URINEon 02-06-2023 CULTURE URINE Culture Observations : LIGHT GROWTH OF MIXED GENITAL FLORY. NO POTENTIAL PATHOGENS SEEN. Normal [facility] Comment on above: Performed By: #### U RCX #### [facility] [address] [place] [address] Dr. Kate Oconnor Covid-19 PCR (CVDTB)on SARS-CoV-2 (COVID-19) RNA ADRIAN+probe Ql (Unsp spec) Not detected Normal NOT DETECTED [facility] Comment on above: Result Comment: When diagnostic [...] for this test is supported by the Director Clinical Operations of Health and Human Service's declaration that [...] used). Performed By: #### C VDTBH #### [facility] [address] [place] [address] Dr. Kate Oconnor ER URINE PROFILEon 3 Bilirubin Ql (U) Negative Normal NEGATIVE [facility] Comment on above: Performed By: #### U MICRO, PREGU, ERUR #### [facility] [address] [place] [address] Dr. Kate Oconnor Clarity (U) CLEAR Normal CLEAR [facility] Comment on above: Performed By: #### U MICRO, PREGU, ERUR #### [facility] [address] [place] [address] Dr. Kate Oconnor Color (U) YELLOW Normal YELLOW [facility] Comment on above: Performed By: #### U MICRO, PREGU, ERUR #### [facility] [address] [place] [address] Dr. Kate Oconnor ERUAHD A micrscopic examina tion will be performed if indicated. Normal [facility] Comment on above: Performed By: #### U MICRO, PREGU, ERUR #### [facility] [address] [address] [address] Kate Oconnor Glucose Ql (U) Negative Normal NEGATIVE [facility] Comment on above: Performed By: #### U MICRO, PREGU, ERUR #### [facility] [address] [address] [address] Kate Oconnor Hemoglobin Ql (U) Negative Normal NEGATIVE [facility] Comment on above: Performed By: #### U MICRO, PREGU, ERUR #### [facility] [address] [address] [address] Kate Oconnor Ketones Ql (U) 40 mg/dl Abnormal NEGATIVE [facility] Comment on above: Performed By: #### U MICRO, PREGU, ERUR #### [facility] [address] [address] [address] Kate Oconnor LEUKOCYTES SMALL Abnormal NEGATIVE [facility] Comment on above: Performed By: #### U MICRO, PREGU, ERUR #### [facility] [address] [address] [address] Kate Oconnor Nitrite Ql (U) Negative Normal NEGATIVE [facility] Comment on above: Performed By: #### U MICRO, PREGU, ERUR #### [facility] [address] [address] [address] Kate Oconnor pH (U) 5.5 [pH] Normal 5-9 [facility] Comment on above: Performed By: #### U MICRO, PREGU, ERUR #### [facility] [address] [address] [address] Kate Oconnor SPEC GRAVITY >=1.030 Abnormal 1.005-<=1. 025 [facility] Comment on above: Performed By: #### U MICRO, PREGU, ERUR #### [facility] [address] [address] [address] Kate Oconnor UA PROTEIN Negative Normal NEGATIVE/ TRACE [facility] Comment on above: Performed By: #### U MICRO, PREGU, ERUR #### [facility] [address] [place] [address] Dr. Kate Oconnor UR MICRO IND INDICATED Normal [facility] Comment on above: Performed By: #### U MICRO, PREGU, ERUR #### [facility] [address] [place] [address] Dr. Kate Oconnor Urobilinogen Qn (U) 0.2 {Sukh'U}/dL Normal 0.2 - 1. 0 [facility] Comment on above: Performed By: #### U MICRO, PREGU, ERUR #### [facility] [address] [place] [address] Dr. Kate Oconnor LIPASEon 02-06-2023 Lipase [Catalytic activity/Vol] 46.0 U/L Critically low 73.0-393.0 [facility] Comment on above: Performed By: #### L IPA, CMP, CHERRY #### [facility] [address] [place] [address] Dr. Kate Oconnor URon 02-06-2023 , QUAL Negative Normal NEGATIVE [facility] Comment on above: Performed By: #### U MICRO, PREGU, ERUR #### [facility] [address] [place] [address] Dr. Kate Oconnor PROF 14(COMP METB)on 023 Albumin [Mass/Vol] 4.1 g/dL Normal 3.4-5.0 [facility] Comment on above: Performed By: #### L IPA, CMP, CHERRY #### [facility] [address] [place] [address] Dr. Kate Oconnor Albumin/Globulin [Mass ratio] 1.3 {ratio} Normal [facility] Comment on above: Performed By: #### L IPA, CMP, CHERRY #### [facility] [address] [place] [address] Dr. Kate Oconnor ALP [Catalytic activity/Vol] 78 U/L Normal 46-116 [facility] Comment on above: Performed By: #### L IPA, CMP, CHERRY #### [facility] [address] [place] [address] Dr. Kate Oconnor ALT [Catalytic activity/Vol] 25 U/L Normal 14-59 [facility] Comment on above: Performed By: #### L IPA, CMP, CHERRY #### [facility] [address] [place] [address] Dr. Kate Oconnor Anion gap [Moles/Vol] 9.6 mmol/L Normal [facility] Comment on above: Performed By: #### L IPA, CMP, CHERRY #### [facility] [address] [place] [address] Dr. Kate Oconnor AST [Catalytic activity/Vol] 18 U/L Normal 15-37 [facility] Comment on above: Performed By: #### L IPA, CMP, CHERRY #### [facility] [address] [place] [address] Dr. Kate Oconnor Bilirubin [Mass/Vol] 0.9 mg/dL Normal 0.2-1.0 [facility] Comment on above: Performed By: #### L IPA, CMP, CHERRY #### [facility] [address] [place] [address] Dr. Kate Oconnor Calcium [Mass/Vol] 8.8 mg/dL Normal 8.5-10.1 [facility] Comment on above: Performed By: #### L IPA, CMP, CHERRY #### [facility] [address] [place] [address] Dr. Kate Oconnor Chloride [Moles/Vol] 105 mmol/L Normal 98-107 [facility] Comment on above: Performed By: #### L IPA, CMP, CHERRY #### [facility] [address] [place] [address] Dr. Kate Oconnor CO2 [Moles/Vol] 26.8 mmol/L Normal 21.0-32.0 [facility] Comment on above: Performed By: #### L IPA, CMP, CHERRY #### [facility] [address] [place] [address] Dr. Kate Oconnor Creatinine [Mass/Vol] 0.69 mg/dL Normal 0.55-1.02 [facility] Comment on above: Performed By: #### L IPA, CMP, CHERRY #### [facility] [address] [address] [address] Kate Oconnor EGFR-AF [place] >60 Normal >=60 [facility] Comment on above: Performed By: #### L IPA CMP, CHERRY #### [facility] [address] [address] [address] Kate Oconnor EGFR-NON AF [place] >60 Normal >=60 [facility] Comment on above: Performed By: #### L IPA CMP, CHERRY #### [facility] [address] [address] [address] Kate Oconnor Globulin (S) [Mass/Vol] 3.2 g/dL Normal [facility] Comment on above: Performed By: #### L IPA CMP, CHERRY #### [facility] [address] [place] [address] Dr. Kate Oconnor Glucose [Mass/Vol] 95 mg/dL Normal 74-106 [facility] Comment on above: Performed By: #### L IPA CMP, CHERRY #### [facility] [address] [place] [address] Dr. Kate Oconnor Potassium [Moles/Vol] 3.4 mmol/L Critically low 3.5-5.1 [facility] Comment on above: Performed By: #### L IPA CMP, CHERRY #### [facility] [address] [place] [address] Dr. Kate Oconnor Protein [Mass/Vol] 7.3 g/dL Normal 6.4-8.2 [facility] Comment on above: Performed By: #### L IPA CMP, CHERRY #### [facility] [address] [place] [address] Dr. Kate Oconnor Sodium [Moles/Vol] 138 mmol/L Normal 136-145 [facility] Comment on above: Performed By: #### L IPA CMP, CHERRY #### [facility] [address] [place] [address] Dr. Kate Oconnor Urea nitrogen [Mass/Vol] 9.0 mg/dL Normal 7.0-18.0 [facility] Comment on above: Performed By: #### L IPA CMP, CHERRY #### [facility] [address] [address] [address] Kate Oconnor Urea nitrogen/Creatinine [Mass ratio] 13.0 mg/mg Normal [facility] Comment on above: Performed By: #### L IPA, CMP, CHERRY #### [facility] [address] [address] [address] Kate Oconnor URINE MICROSCOPIC ONLYon BACTERIA TRACE Abnormal NONE SEEN [facility] Comment on above: Performed By: #### U MICRO, PREGU, ERUR #### [facility] [address] [address] [address] Kate Oconnor Bacteria identified Cx Nom (U) INDICATED Normal [facility] Comment on above: Performed By: #### U MICRO, PREGU, ERUR #### [facility] [address] [place] [address] Dr. Kate Oconnor CA OX CRYSTALS FEW Normal [facility] Comment on above: Performed By: #### U MICRO, PREGU, ERUR #### [facility] [address] [address] [address] Kate Oconnor CAST NONE SEEN Normal NONE SEEN [facility] Comment on above: Performed By: #### U MICRO, PREGU, ERUR #### [facility] [address] [address] [address] Kate Oconnor Crystals LM Nom (Urine sed) SEEN Abnormal NONE SEEN [facility] Comment on above: Performed By: #### U MICRO, PREGU, ERUR #### [facility] [address] [address] [address] Kate Oconnor Epithelial cells LM Ql (Urine sed) FEW Abnormal NONE SEEN /RARE [facility] Comment on above: Performed By: #### U MICRO, PREGU, ERUR #### [facility] [address] [address] [address] Kate Oconnor MUCOUS NONE SEEN Normal NONE SEEN [facility] Comment on above: Performed By: #### U MICRO, PREGU, ERUR #### [facility] [address] [address] [address] Kate Oconnor RBC 0-2 Normal 0-2 [facility] Comment on above: Performed By: #### U MICRO, PREGU, ERUR #### [facility] [address] [place], [place] [address] Dr. Kate Oconnor WBC 5-10 Abnormal NONE SEEN [facility] Comment on above: Performed By: #### U MICRO, PREGU, ERUR #### [facility] [address] [place], [place] [address] Dr. Kate Oconnor Vital Signs Date Time Vital Sign Value Performing Clinician Facility 06-27-2025 16:17-0400 Body height 175.26 cm [facility] Work Phone: [facility] 06-27-2025 16:17-0400 Body temperature 98.3 [degF] [facility] Work Phone: [facility] 06-27-2025 16:17-0400 Body weight 113.8 kg [facility] Work Phone: [facility] 06-27-2025 16:17-0400 Diastolic blood pressure 83 mm[Hg] [facility] Work Phone: [facility] 06-27-2025 16:17-0400 Heart rate 66 /min [facility] Work Phone: [facility] 06-27-2025 16:17-0400 Respiratory rate 22 /min [facility] Work Phone: [facility] 06-27-2025 16:17-0400 SaO2% (BldA) [Mass fraction] 99 % [facility] Work Phone: [facility] 06-27-2025 16:17-0400 Systolic blood pressure 133 mm[Hg] [facility] Work Phone: [facility] 06-05-2025 21:45-0400 Diastolic blood pressure 70 mm[Hg] [facility] Work Phone: [facility] 06-05-2025 21:45-0400 Heart rate 72 /min [facility] Work Phone: [facility] 06-05-2025 21:45-0400 Respiratory rate 20 /min [facility] Work Phone: [facility] 06-05-2025 21:45-0400 SaO2% (BldA) [Mass fraction] 98 % [facility] Work Phone: [facility] 06-05-2025 21:45-0400 Systolic blood pressure 120 mm[Hg] [facility] Work Phone: [facility] 06-05-2025 19:38-0400 Body height 167.64 cm [facility] Work Phone: [facility] 06-05-2025 19:38-0400 Body temperature 98.3 [degF] [facility] Work Phone: [facility] 06-05-2025 19:38-0400 Body weight 101.6 kg [facility] Work Phone: [facility] 04-19-2025 10:26-0400 Diastolic blood pressure 67 mm[Hg] [facility] Work Phone: [facility] 04-19-2025 10:26-0400 Heart rate 63 /min [facility] Work Phone: [facility] 04-19-2025 10:26-0400 Respiratory rate 18 /min [facility] Work Phone: [facility] 04-19-2025 10:26-0400 SaO2% (BldA) [Mass fraction] 96 % [facility] Work Phone: [facility] 04-19-2025 10:26-0400 Systolic blood pressure 111 mm[Hg] [facility] Work Phone: [facility] 04-19-2025 07:33-0400 Body temperature 97.5 [degF] [facility] Work Phone: [facility] 04-19-2025 07:32-0400 Body height 177.8 cm [facility] Work Phone: [facility] 04-19-2025 07:32-0400 Body weight 111.25 kg [facility] Work Phone: [facility] 10-29-2024 14:21-0500 Body mass index (BMI) [Ratio] 37.25 kg/m2 [employer] [facility] Work Phone: [facility] 10-29-2024 14:21-0500 Body temperature 97.59 [degF] [facility] Work Phone: [facility] 10-29-2024 14:21-0500 Body weight 111.13 kg [facility] Work Phone: [facility] 10-29-2024 14:21-0500 Heart rate 83 /min [facility] Work Phone: [facility] 10-29-2024 14:21-0500 SaO2% (BldA) [Mass fraction] 98 % [facility] Work Phone: [facility] 10-05-2024 14:36-0500 Body height 172.72 cm [facility] Work Phone: [facility] 10-05-2024 14:36-0500 Body weight 106.59 kg [facility] Work Phone: [facility] 08-02-2024 17:59-0400 Body height 175.26 cm [facility] Work Phone: [facility] 08-02-2024 17:59-0400 Body temperature 98.7 [degF] [facility] Work Phone: [facility] 08-02-2024 17:59-0400 Body weight 110.35 kg [facility] Work Phone: [facility] 08-02-2024 17:59-0400 Diastolic blood pressure 79 mm[Hg] [facility] Work Phone: [facility] 08-02-2024 17:59-0400 Heart rate 67 /min [facility] Work Phone: [facility] 08-02-2024 17:59-0400 Respiratory rate 17 /min [facility] Work Phone: [facility] 08-02-2024 17:59-0400 SaO2% (BldA) [Mass fraction] 100 % [facility] Work Phone: [facility] 08-02-2024 17:59-0400 Systolic blood pressure 137 mm[Hg] [facility] Work Phone: [facility] 07-20-2024 15:47-0400 Diastolic blood pressure 72 mm[Hg] [facility] Work Phone: [facility] 07-20-2024 15:47-0400 Heart rate 79 /min [facility] Work Phone: [facility] 07-20-2024 15:47-0400 Respiratory rate 16 /min [facility] Work Phone: [facility] 07-20-2024 15:47-0400 SaO2% (BldA) [Mass fraction] 97 % [facility] Work Phone: [facility] 07-20-2024 15:47-0400 Systolic blood pressure 116 mm[Hg] [facility] Work Phone: [facility] 07-20-2024 13:53-0400 Body height 175.26 cm [facility] Work Phone: [facility] 07-20-2024 13:53-0400 Body temperature 98.2 [degF] [facility] Work Phone: [facility] 07-20-2024 13:53-0400 Body weight 109.77 kg [facility] Work Phone: [facility] 07-16-2024 08:56-0400 Body height 175.26 cm [facility] Work Phone: [facility] 07-16-2024 08:56-0400 Body mass index (BMI) [Ratio] 36.6 kg/m2 [facility] Work Phone: [facility] 07-16-2024 08:56-0400 Body weight 112.49 kg [facility] Work Phone: [facility] 07-16-2024 08:56-0400 Diastolic blood pressure 75 mm[Hg] [facility] Work Phone: [facility] 07-16-2024 08:56-0400 Heart rate 77 /min [facility] Work Phone: [facility] 07-16-2024 08:56-0400 Systolic blood pressure 118 mm[Hg] [facility] Work Phone: [facility] 05-10-2024 13:00-0400 Diastolic blood pressure 74 mm[Hg] [facility] Work Phone: [facility] 05-10-2024 13:00-0400 Heart rate 64 /min [facility] Work Phone: [facility] 05-10-2024 13:00-0400 Respiratory rate 16 /min [facility] Work Phone: [facility] 05-10-2024 13:00-0400 SaO2% (BldA) [Mass fraction] 97 % [facility] Work Phone: [facility] 05-10-2024 13:00-0400 Systolic blood pressure 121 mm[Hg] [facility] Work Phone: [facility] 05-10-2024 10:54-0400 Body height 175.26 cm [facility] Work Phone: [facility] 05-10-2024 10:54-0400 Body temperature 98 [degF] [facility] Work Phone: [facility] 05-10-2024 10:54-0400 Body weight 112.35 kg [facility] Work Phone: [facility] 02-06-2023 12:18-0500 Body height 175.26 cm [facility] Work Phone: [facility] 02-06-2023 12:18-0500 Body temperature 98.4 [degF] [facility] Work Phone: [facility] 02-06-2023 12:18-0500 Body weight 114.75 kg [facility] Work Phone: [facility] 02-06-2023 12:18-0500 Diastolic blood pressure 90 mm[Hg] [facility] Work Phone: [facility] 02-06-2023 12:18-0500 Heart rate 86 /min [facility] Work Phone: [facility] 02-06-2023 12:18-0500 Respiratory rate 20 /min [facility] Work Phone: [facility] 02-06-2023 12:18-0500 SaO2% (BldA) [Mass fraction] 100 % [facility] Work Phone: [facility] 02-06-2023 12:18-0500 Systolic blood pressure 161 mm[Hg] [facility] Work Phone: [facility] Encounters Encounter Date Encounter Type Care Provider Facility Start: 06-27-2025 End: 06-28-2025 Emergency department patient visit Adwoa Nina [facility] [place] Start: 06-27-2025 End: 06-27-2025 Emergency department patient visit [facility] Work Phone: -Emergency Room Work Phone: Start: 06-05-2025 End: 06-05-2025 Emergency department patient visit [facility] Work Phone: -Emergency Room Work Phone: Start: 04-19-2025 End: 04-19-2025 Emergency department patient visit [facility] Work Phone: -Emergency Room Work Phone: Start: 10-29-2024 End: 10-29-2024 nikolay DUVAL Not Available Start: 10-29-2024 End: 10-29-2024 Office outpatient visit 25 minutes Summer M Workman PA Work Phone: [facility] Comment on above: Acute streptococcal pharyngitis (Primary Dx); Pharyngitis, unspecified etiology; Upper respiratory tract infection, unspecified type Start: 08-25-2024 End: 08-25-2024 Emergency department patient visit [facility] Work Phone: [facility] Work Phone: Start: 08-12-2024 End: 08-12-2024 ambulatory [facility] Work Phone: [facility] Work Phone: Start: 08-12-2024 End: 08-12-2024 Departed Referred Services [facility] Work Phone: [facility] Work Phone: Start: 08-02-2024 End: 08-02-2024 Emergency department patient visit Services [facility] Work Phone: [facility]Emergency Room Work Phone: Start: 07-20-2024 Non-patient / Non-visit Serv[facility] Work Phone: [facility] Work Phone: Start: 07-20-2024 End: 07-20-2024 Admission to same day surgery center Services [facility] Work Phone: [facility] Work Phone: Start: 07-20-2024 End: 07-20-2024 ambulatory Services [facility] Work Phone: [facility] Work Phone: Start: 07-16-2024 End: 07-16-2024 ambulatory Services [facility] Work Phone: [facility] Work Phone: Start: 07-16-2024 End: 07-16-2024 Patient encounter procedure Services [facility] Work Phone: [facility] Work Phone: Start: 06-30-2024 End: 06-30-2024 ambulatory summer WORKMAN Not Available Start: 05-10-2024 End: 05-10-2024 Emergency department patient visit Services [facility] Work Phone: [facility]Emergency [facility] Work Phone: Start: 02-05-2024 End: 02-05-2024 ambulatory PENOLA BOGGS Not Available Start: 11-27-2023 End: 11-27-2023 ambulatory PENOLA P BOGGS Not Available Start: 11-06-2023 End: 11-06-2023 ambulatory PENOLA P BOGGS Not Available Start: 02-06-2023 End: 02-07-[address] [facility] Facility:[facility] Start: 02-06-2023 End: 02-06-2023 Emergency department patient visit Services [facility] Work Phone: [facility]Emergency [facility] Work Phone: Start: 12-10-2022 ambulatory Facility:[id number] Start: 12-04-2022 End: 12-04-2022 ambulatory Services [facility] Work Phone: [facility] Work Phone: Start: 12-04-2022 End: 12-04-2022 Patient encounter procedure Services [facility] Work Phone: [facility]Electrodiagnostics Work Phone: Procedures Date Procedure Procedure Detail Performing Clinician Start: 06-05-2025 Plain chest X-ray Services [facility] Work Phone: Start: 04-19-2025 Urine culture Services [facility] Work Phone: Start: 04-19-2025 Computed tomography of abdomen and pelvis with contrast Services [facility] Work Phone: Start: 10-29-2024 Iadna streptococcus group a amplified probe tq summer Workman PA Work Phone: Start: 10-29-2024 STATUS COVID-19/FLU Summer M Workman PA Work Phone: Start: 07-20-2024 Esophagogastroduodenoscopy Services [facility] Work Phone: Start: 05-10-2024 Urine culture Services [facility] Work Phone: Start: 05-10-2024 US scan of gallbladder Services [facility] Work Phone: Plan of Treatment Date Care Activity Detail Author Start: 06-27-2025 [facility] Start: 06-05-2025 Plain chest X-ray XR chest 2V* [facility] Start: 06-05-2025 XR Chest 2 Views [facility] Start: 08-01-2024 Influenza vaccination Influenz a Vaccine (#1) [facility] Start: 07-20-2024 [facility] Start: 05-10-2024 Bacteria identified in Urine by Culture [facility] Start: 02-06-2023 Blood chemistry [facility] Start: 02-06-2023 [facility] Albumin/Globulin ratio [facility] Anion gap measurement [facility] Anion gap measurement [facility] Basophils [#/volume] in Blood by Automated count [facility] Basophils [#/volume] in Blood by Automated count [facility] Basophils/100 leukoc ytes in Blood by Automated count [facility] Basophils/100 leukoc ytes in Blood by Automated count [facility] Eosinophils [#/volum e] in Blood [facility] Eosinophils/100 leukocytes in Blood by Automated count [facility] Eosinophils/100 leukocytes in Blood by Automated count [facility] Erythrocyte distribu tion width [Ratio] by Automated count [facility] Erythrocyte distribu tion width [Ratio] by Automated count [facility] Erythrocytes [#/volu me] in Blood [facility] Erythrocytes [#/volu me] in Blood [facility] Globulin [Mass/volum e] in Serum [facility] Hematocrit [Volume Fraction] of Blood [facility] Hematocrit [Volume Fraction] of Blood [facility] Hemoglobin [Mass/vol ume] in Blood [facility] Hemoglobin [Mass/vol ume] in Blood [facility] Leukocytes [#/volume ] corrected for nucleated erythrocytes in Blood by Automated coun [facility] Leukocytes [#/volume ] corrected for nucleated erythrocytes in Blood by Automated coun [facility] Leukocytes [#/volume ] in Blood [facility] Leukocytes [#/volume ] in Blood [facility] Lymphocytes [#/volum e] in Blood by Automated count [facility] Lymphocytes [#/volum e] in Blood by Automated count [facility] Lymphocytes/100 leukocytes in Blood by Automated count [facility] Lymphocytes/100 leukocytes in Blood by Automated count [facility] MCH [Entitic mass] b y Automated count [facility] MCH [Entitic mass] b y Automated count [facility] MCHC [Mass/volume] b y Automated count [facility] MCHC [Mass/volume] b y Automated count [facility] MCV [Entitic volume] by Automated count [facility] MCV [Entitic volume] by Automated count [facility] Monocytes [#/volume] in Blood by Automated count [facility] Monocytes [#/volume] in Blood by Automated count [facility] Monocytes/100 leukoc ytes in Blood by Automated count [facility] Monocytes/100 leukoc ytes in Blood by Automated count [facility] Neutrophils [#/volum e] in Blood by Automated count [facility] Neutrophils [#/volum e] in Blood by Automated count [facility] Neutrophils/100 leukocytes in Blood by Automated count [facility] Neutrophils/100 leukocytes in Blood by Automated count [facility] Nucleated erythrocyt es [Presence] in Blood by Automated count [facility] Nucleated erythrocyt es [Presence] in Blood by Automated count [facility] Patient Education [facility] Work Phone: Patient referral [facility] Work Phone: Platelet mean volume [Entitic volume] in Blood by Automated count [facility] Platelet mean volume [Entitic volume] in Blood by Automated count [facility] Platelets [#/volume] in Blood [facility] Platelets [#/volume] in Blood [facility] Payers Date Payer Category Payer Self-pay [id number] 2023 Medicaid [id number] 2015 Private Health Insurance [facility] [employer] [id number] 1990 Unknown [id number]. 356 1990 Unknown [id number] 2.16.840.1.015545.3.579.2. 593 1990 Unknown [id number] 2.16.840.1.962851.3.579.2. 1259 1990 Unknown [id number] 2.16.840.1.222987.3.579.2. 1259 1990 Unknown [id number] 2.16.840.1.531158.3.579.2. 1259 1990 Unknown [id number] 2.16.840.1.216156.3.579.2. 1259 1990 Unknown [id number] 2.16.840.1.347164.3.579.2. 1259 1990 Unknown [id number] 2.16.840.1.201403.3.579.2. 727 1990 Unknown [id number] 2.16.840.1.572132.3.579.2. 727 1990 Unknown [id number] 2.16.840.1.306138.3.579.2. 727 1959 Medicaid [id number] Unknown [id number] 2.16.840.1.138943.3.579.2. 531 Unknown [id number] 2.16.840.1.129668.3.579.2. 531 Unknown [id number] 2.16.840.1.559391.3.579.2. 531 Unknown [id number] 2.16.840.1.329927.3.579.2. 531 Unknown [id number] 2.16.840.1.589542.3.579.2. 531 Unknown [id number] 2.16.840.1.037044.3.579.2. 531 Social History Date Type Detail Facility Start: 02-06-2022 End: 05-10-2024 Tobacco smoking status MNIS Ex-smoker (finding) [facility] Start: 1990 Sex Assigned At Female F [facility] Start: 02-06-2023 End: 08-02-2024 Tobacco smoking status MNIS Smoker (finding) [facility] Start: 07-20-2024 End: 06-05-2025 Tobacco smoking status [facility] Never smoked tobacco (finding) [facility] Start: 10-18-2024 Sex Female (finding) [facility] Start: 02-05-2024 Tobacco use and exposure Smokeless tobacco non-user [facility] Start: 10-29-2024 Alcoholic beverage intake Lifetime non-drinker (finding) [facility] Start: 11-06-2023 End: 02-05-2024 History of Social function [facility] Start: 11-06-2023 End: 02-05-2024 Tobacco use panel [facility] Start: 1990 Sex assigned at Not on file [facility] NEGATED: Highlighted row [facility] NEGATED: Highlighted rowStart: NINF History of tobacco use Passive smoker [facility] Goals Date Patient Goal Desired Activity /State Clinical Note 06-28-2025 Note Date & Type Note Facility 06-28-2025 Note ED Patient Education Note Neurology Tension Headache, Adult A tension headache is a feeling of pain, pressure, or aching over the front and sides of the head. The pain can be dull, or it can feel tight. There are two types of tension headache: ??? Episodic tension headache. This is when the headaches happen fewer than 15 days a month. ??? Chronic tension headache. This is when the headaches happen more than 15 days a month during a 3-month period. A tension headache can last from 30 minutes to several days. It is the most common kind of headache. Tension headaches are not normally associated with nausea or vomiting, and they do not get worse with physical activity. What are the causes? The exact cause of this condition is not known. Tension headaches are often triggered by stress, anxiety, or depression. Other triggers may include: ??? Alcohol. ??? Too much caffeine or caffeine withdrawal. ??? Respiratory infections, such as colds, flu, or sinus infections. ??? Dental problems or teeth clenching. ??? Fatigue. ??? Holding your head and neck in the same position for a long period of time, such as while using a computer. ??? Smoking. ??? Arthritis of the neck. What are the signs or symptoms? Symptoms of this condition include: ??? A feeling of pressure or tightness around the head. ??? Dull, aching head pain. ??? Pain over the front and sides of the head. ??? Tenderness in the muscles of the head, neck, and shoulders. How is this diagnosed? This condition may be diagnosed based on your symptoms, your medical history, and a physical exam. If your symptoms are severe or unusual, you may have imaging tests, such as a CT scan or an MRI of your head. Your vision may also be checked. How is this treated? This condition may be treated with lifestyle changes and with medicines that help relieve symptoms. Follow these instructions at home: Managing pain ??? Take btis-ipw-xrzwvpw and prescription medicines only as told by your health care provider. ??? When you have a headache, lie down in a dark, quiet room. ??? If directed, put ice on your head and neck. To do this: ? Put ice in a plastic bag. ? Place a towel between your skin and the bag. ? Leave the ice on for 20 minutes, 2?3 times a day. ? Remove the ice if your skin turns bright red. This is very important. If you cannot feel pain, heat, or cold, you have a greater risk of damage to the area. ??? If directed, apply heat to the back of your neck as often as told by your health care provider. Use the heat source that your health care provider recommends, such as a moist heat pack or a heating pad. ? Place a towel between your skin and the heat source. ? Leave the heat on for 20?30 minutes. ? Remove the heat if your skin turns bright red. This is especially important if you are unable to feel pain, heat, or cold. You have a greater risk of getting burned. Eating and drinking ??? Eat meals on a regular schedule. ??? If you drink alcohol: ? Limit how much you have to: ? 0?1 drink a day for women who are not . ? 0?2 drinks a day for men. ? Know how much alcohol is in your drink. In the [place] one drink equals one 12 oz bottle of beer (355 mL), one 5 oz glass of wine (148 mL), or one 1? oz glass of hard liquor (44 mL). ??? Drink enough fluid to keep your urine pale yellow. ??? Decrease your caffeine intake, or stop using caffeine. Lifestyle ??? Get 7?9 hours of sleep each night, or get the amount of sleep recommended by your health care provider. ??? At bedtime, remove computers, phones, and tablets from your room. ??? Find ways to manage your stress. This may include: ? Exercise. ? Deep breathing exercises. ? Yoga. ? Listening to music. ? Positive mental imagery. ??? Try to sit up straight and avoid tensing your muscles. ??? Do not use any products that contain nicotine or tobacco. These include cigarettes, chewing tobacco, and vaping devices, such as e-cigarettes. If you need help quitting, ask your health care provider. General instructions ??? Avoid any headache triggers. Keep a journal to help find out what may trigger your headaches. For example, write down: ? What you eat and drink. ? How much sleep you get. ? Any change to your diet or medicines. ??? Keep all follow-up visits. This is important. Contact a health care provider if: ??? Your headache does not get better. ??? Your headache comes back. ??? You are sensitive to sounds, light, or smells because of a headache. ??? You have nausea or you vomit. ??? Your stomach hurts. Get help right away if: ??? You suddenly develop a severe headache, along with any of the following: ? A stiff neck. ? Nausea and vomiting. ? Confusion. ? Weakness in one part or one side of your body. ? Double vision or loss of vision. ? Shortness of breath. ? Rash. ? Unusual sleepiness. ? Fever or chills. ? Trouble speaking. ? P (more content not included)... [facility] History of Present illness Narrative 10-29-2024 Shannon Luis Fernando DuvalDORI - 10/29/2024 2:15 PM EST Note Date & Type Note Facility 10-29-2024 History of Presen t illness Narrative Images from the original note were not included. [address] , [address] [facility], [address] P: [phone] F: [phone] HPI Historian of HPI: patient Neisha Engel is a 34 y.o. female who presents today to the Urgent Care with the following complaints and denials which have been present for 5 day(s). Pt reports nasal congestion, cough with yellow mucus, bilateral ear pain, fever, chills, myalgias, sob, chest congestion. Denies hemoptysis, chest pain or pressure, n/v/d. C/O Denies Symptom Comments [x] [] Runny Nose [] [x] Difficulty Swallowing [x] [] Sore Throat [x] [] Cough [x] [] Ear Pain [x] [] Fever [x] [] Chills [x] [] Chest Congestion [x] [] SOB [x] [] Sinus Pain [x] [] Sinus Pressure Additional Comments: pt has taken flonase, motrin OTC medication without relief Pt was seen with PCP on Friday and states she has gotten worse. She was given OTC cough medicine and flonase. Temp this morning was 102 ROS A complete system ROS was performed and negative aside from the pertinent positives noted in the HPI and PE. PHYSICAL EXAM Physical Exam General Examination: alert, oriented, normal affect, well-appearing, in no acute distress, well developed, well nourished. Head: normocephalic, atraumatic Eyes: sclera non-icteric Ears: auditory canal clear, tympanic membrane intact, clear Nose: Slight congestion noted Oral Cavity: no lesions, mucosa moist Throat: symmetrical rise of soft palate and uvula, + erythema no exudate Lymph Nodes: + anterior b/l cervical adenopathy Heart: regular rate and rhythm, S1, S2 normal Lungs: clear to auscultation bilaterally. No wheezes, rales, rhonchi. Extremities: no edema, no cyanosis Psych: alert, oriented, cognitive function intact, cooperative with exam. TREATMENT PLAN 1. Acute streptococcal pharyngitis (Primary) Discussed etiology and management. Discussed antibiotic therapy and common side effects. Discussed symptomatic therapy such as increase in liquids, sore throat spray including either menthol or benzocaine as tolerated, OTC Tylenol. Discussed contagious until been taking antibiotic for 24 hours. Advised if symptoms worsen, persist, or do not change to return for immediate re-evaluation. Follow up with pcp in 3-5 days. Recommend new toothbrush day 3 of antibiotic. Patient voiced understanding and agreement with the plan. All questions/concerns addressed - amoxicillin (Amoxil) 500 MG capsule; Take 1 capsule (500 mg) by mouth in the morning and 1 capsule (500 mg) before bedtime. Do all this for 10 days. Dispense: 20 capsule; Refill: 0 2. Pharyngitis, unspecified etiology Strep pos, covid and flu neg, reviewed with pt. 3. Upper respiratory tract infection, unspecified type Tx as above. - [id number] 30-2-10 MG/5ML syrup; Take 5-10 mL by mouth 4 (four) times a day as needed for cough or congestion for up to 7 days Dispense: 120 mL; Refill: 0 documented in this encounter [facility] Procedure note 07-20-2024 Note Date & Type Note Facility 07-20-2024 Procedure note [facility] Evaluation note Note Date & Type Note Facility Evaluation note No assessment information availa ble [facility] Work Phone: Evaluation note Note Date & Type Note Facility Evaluation note Diagnosis Onset Date Abdominal pain acute Coffee ground emesis acute Diarrhea acute GERD (gastroesophageal reflux disease) acute Melena acute NSAID long-term use acute [facility] Work Phone: Evaluation note Note Date & Type Note Facility Evaluation note Diagnosis Acute streptococcal pharyngitis- Primary Streptococcal sore throat Pharyngitis, unspecified etiology Upper respiratory tract infection, unspecified type documented in this encounter [facility] Discharge instructions Note Date & Type [...] next 3 days for reevaluation. [facility] Work Phone: Reason for referral (narrative) Note Date & Type Note Facility Reason for referral (narrative) No reason for referral information available [facility] Work Phone: Chief Complaint and Reason for Visit Chief Complaint Chest Pain Chief Complaint Chest Pain rt side pain Chief Complaint light headed,dizzy Chief Complaint light headed,dizzy Refer: GERD, Upper abdominal pain Reason for Visit Abdominal pain Coffee ground emesis Diarrhea GERD (gastroesophageal reflux disease) Melena NSAID long-term use Chief Complaint light headed,dizzy Refer: GERD, Upper abdominal pain hematemesis/ab pain/gerd hematemesis/ab pain/gerd Reason for Visit Abdominal pain Coffee ground emesis Diarrhea GERD (gastroesophageal reflux disease) Melena NSAID long-term use Chief Complaint light headed,dizzy Refer: GERD, Upper abdominal pain hematemesis/ab pain/gerd hematemesis/ab pain/gerd Mouth pain Reason for Visit Abdominal pain Coffee ground emesis Diarrhea GERD (gastroesophageal reflux disease) Melena NSAID long-term use Chief Complaint Refer: GERD, Upper a bdominal pain hematemesis/ab pain/gerd hematemesis/ab pain/gerd Mouth pain hives, vomiting Reason for Visit Abdominal pain Coffee ground emesis Diarrhea GERD (gastroesophageal reflux disease) Melena NSAID long-term use Chief Complaint Admit Date hematemesis/ab pain/gerd July 20 12:45pm hematemesis/ab pain/gerd July 20 3:07pm Mouth pain August 02, 2024 5:53pm melena, change in bowel habits, diarrhea August 12, 2024 10:00am hives, vomiting August 25, 2024 5:36pm Chief Complaint Admit Date abd pain April 19, 2025 7:29a m dizzy, chest pain, vomiting, double visi on June 05, 2025 7:30pm Chief Complaint Admit Date abd pain April 19, 2025 7:29a m dizzy, chest pain, vomiting, double visi on June 05, 2025 7:30pm vomiting,headache June 27, 2025 4:09 pm Advance Directives No Advanced Directives Records Found Advance Directive Response Recorded Date/ Time Advance Directives No August 3:47pm Advance Directive Response Recorded Date/ Time Advance Directives No August 4:47pm Summary Purpose Family History Relationship Condition Age at Onset Recorded Date/T emma maternal grandmother Diabetes mellitus Unknown Hypertension Unknown Malignant neoplasm of breast Unknown mother Diabetes mellitus Unknown father Diabetes mellitus Unknown Heart disease Unknown Relationship Condition Age at Onset Recorded Date/T emma Not Specified No pertinent family history Unknown maternal grandmother Malignant neoplasm Unknown Diabetes mellitus Unknown Hypertension Unknown mother Diabetes mellitus Unknown father Diabetes mellitus Unknown Heart disease Unknown No Family History Records Found Additional Source Comments Care Teams (unrecognized sec tion and content) Team Status: Inactive Member Role Status Dates Emily Rubio APRN SPLITTER HAND-C Attending Provider Active Services Family [facility] Primary Care Provider Active Team Status: Active Member Role Status Dates Services [facility] Primary Care Provider Active Team Status: Inactive Member Role Status Dates Services [facility] Primary Care Provider Active Maurisio Parks DO Emergency Provider Active Team Status: Inactive Member Role Status Dates Services [facility] Primary Care Provider Active Start: May 10, 2024 End: May 10, 2024 Diana Archer MD Emergency Provider Active Start: May 10, 2024 End: May 10, 2024 Team Status: Inactive Member Role Status Dates Services [facility] Primary Care Provider Active Start: July 16, 2024 End: July 16, 2024 Emily Rubio APRN [employer]PL[employer] HAND-C Referring Provider Active Start: July 16, 2024 End: July 16, 2024 Chano Ulloa MD Attending Provider Active S tart: July 16, 2024 End: July 16, 2024 Team Status: Inactive Member Role Status Dates Services [facility] Primary Care Provider Active Start: July 20, 2024 End: July 20, 2024 Chano Ulloa MD Attending Provider Active S tart: July 20, 2024 End: July 20, 2024 Team Status: Active Member Role Status Dates Services [facility] Primary Care Provider Active Start: July 20, 2024 Chano Ulloa MD Attending Provider, Other Provider Active Start: July 20, 2024 Team Status: Inactive Member Role Status Dates Services [facility] Primary Care Provider Active Start: August 02, 2024 End: August 02, 2024 Neil Guerrero PA-C Emergency Provider Active Start: August 02, 2024 End: August 02, 2024 Team Status: Inactive Member Role Status Dates Services [facility] Primary Care Provider Active Start: August 25, 2024 End: August 25, 2024 Maurisio Parks DO Emergency Provider Active St art: August 25, 2024 End: August 25, 2024 Team Status: Inactive Member Role Status Dates Services [facility] Primary Care Provider Active Start: August 12, 2024 End: August 12, 2024 Chano Ulloa MD Attending Provider Active S tart: August 12, 2024 End: August 12, 2024 Medical And Scientific Illustrator Relationship Specialty Start Date End Date Unallocated, Argelia Chu MD [address] [place] [address] PCP - General 11/06/23 Vel Ferrara DO [address] [place] [address] PCP - [facility] 03/01/24 Team Status: Inactive Member Role Status Dates Services [facility] Primary Care Provider Active Start: April 19, 2025 End: April 19, 2025 Kenny Marsh DO Emergency Provider Active Start: April 19, 2025 End: April 19, 2025 Team Status: Inactive Member Role Status Dates Services [facility] Primary Care Provider Active Start: June 05, 2025 End: June 05, 2025 Carmen Rubio MD Emergency Provider Active St art: June 05, 2025 End: June 05, 2025 Team Status: Inactive Member Role Status Dates Services [facility] Primary Care Provider Active Start: June 27, 2025 End: June 27, 2025 Maurisio Parks DO Emergency Provider Active St art: June 27, 2025 End: June 27, 2025 Goals (unrecognized section and content) Goals may be documented in a n alternate sectionGoals may be documented in an alternate sectionGoals may be documented in an alternate sectionGoals may be documented in an alternate sectionGoals may be documented in an alternate sectionGoals may be documented in an alternate section INFORMATION SOURCE (unrecogn ized section and content) DATE CREATED AUTHOR 12/18/2022 [facility] DATE CREATED AUTHOR AUTHOR'S ORGANIZ ATION 03/31/2023 [facility] DATE CREATED AUTHOR AUTHOR'S ORGANIZ ATION 10/31/2024 [facility] DATE CREATED AUTHOR AUTHOR'S ORGANIZ ATION 06/29/2025 [facility] DATE CREATED AUTHOR AUTHOR'S ORGANIZ ATION 07/04/2025 [facility] DATE CREATED AUTHOR AUTHOR'S ORGANIZ ATION 07/21/2025 [facility] FOR RECORDS PERTAINING TO PATIENTS [...] BE BASED ON THE PRIMARY CLINICAL RECORDS. [facility] [employer] provides no warranty or guarantee of the accuracy or completeness of information in this document.
[2025-09-03 11:08] VITALS: BP 152/97; PULSE 72; TEMP 37.1; O2SAT 100; BMI 76.5
[2025-09-03] MEDS: METHYLPREDNISOLONE SOD SUCC PF 125 MG/2 ML VIAL IVP (11:44)
--- NOTE | 2025-09-03 11:49 | ED_ITS ---
HPI HPI - General Adult General Chief complaint: Skin/Abscess/Foreign Body Stated complaint: RASH Time Seen by Provider: 09/03/25 11:16 Source: patient Mode of arrival: walk-in Limitations: no limitations History of Present Illness HPI narrative: 34-year-old female who is coming to the ER with 4 days history of rash that developed all over her body, including her upper extremities and abdomen as well as lower extremity, the patient mentioned that she have a history of stroke she only takes aspirin she does not take any hypertension medication and the she mentioned that she does not have insurance and that while she does not afford the medication The patient also mentioned that she has been having nausea for the last 3 to 4 days and multiple episode of vomiting No other family members had similar rash and the itching is severe Related Data Home Medications ?Medication ?Instructions ?Recorded ?Confirmed aspirin 81 mg chewable tablet 81 mg PO DAILY 05/11/24 09/03/25 Previous Rx's ?Medication ?Instructions ?Recorded diphenhydramine HCl 2 % topical 1 applic topical TID P RN itching 09/03/25 gel (Benadryl) #103 mL prednisone 20 mg tablet 40 mg (2 x 20 mg) PO DAILY 5 days 09/03/25 #10 tabs Allergies Allergy/AdvReac Type Severity Reaction Status Date / Time codeine Allergy Severe Hives Verified 09/03/25 11:12 Opioid HPI Opioid Management Most Recent Opioid Data: Last Pain Scale 8 05/11/24, 20:57 Review of Systems ROS Status of ROS 10 or more systems reviewed and unremark able except as noted in history and below [facility] Medical History (Updated 09/03/25 @ 12:12 by Caitlyn Carreon MD) TIA (transient ischemic attack) ?G45.9 - Transient cerebral ischemic attack, unspecified (ICD-10) Social History (Updated 09/03/25 @ 11:12 by Yue Dunbar RN) Within the past year, how often did you have a drink containing alcohol: never Score interpretation: A score less than 3 is consistent with normal alcohol consumption. Smoking status: Former smoker Do you use any of these nicotine containing products: vaping products Non-prescribed substance use: denies use Little interest or pleasure in doing things: not at all Feeling down, depressed, or hopeless: not at all Exam Narrative Exam Narrative: Nurses notes and vital signs reviewed and patient is not hypoxic. Skin: The patient have a extensive rash in the elbow extensor surface bilaterally it is maculopapular and is showing a thickened skin , signs of infection but there is erythema No open wounds, the patient have a similar very mild rash on the anterior abdomen just at the area of pressure from the pants otherwise the patient had no significant rash General: Well-appearing and in no apparent distress. No rash. Head: Normocephalic, atraumatic. Neck: Supple, non-tender. Cardiovascular: Regular Rate and Rhythm without murmur, gallop or rub. Respiratory: No accessory muscle use or respiratory distress. Lungs are clear to auscultation, no wheezing, rales or rhonchi Chest Wall: no tenderness Back: No midline thoracic or lumbar vertebral tenderness. No CVA tenderness Musculoskeletal: normal ROM, no calf or popliteal tenderness, no lower extremity edema/swelling GI: Abdomen is soft, non-distended. Normal bowel sounds. No masses appreciated. No tenderness to palpation. No rebound, guarding, or rigidity noted. Neurological: A&O x4. No cranial nerve dysfunction observed. No truncal ataxia. Moves all extremities. Sensation intact. Psychiatric: Cooperative and interactive. Normal mood and affect. Constitutional Vital Signs, click to edit/add: Last Vital Signs Temp 98.7 F 09/03/25 11:08 Pulse 76 09/03/25 12:40 Resp 16 09/03/25 12:40 BP 135/95 H 09/03/25 12:40 Pulse Ox 98 09/03/25 12:40 O2 Del Method Room Air 09/03/25 12:40 Course Vital Signs Vital signs: Vital Signs Temperature 98.7 F 09/03/25 11:08 Pulse Rate 72 09/03/25 11:08 Respiratory Rate 16 09/03/25 11:08 Blood Pressure 152/97 H 09/03/25 11:08 Pulse Oximetry 100 09/03/25 11:08 Oxygen Delivery Method Room Air 09/03/25 11:08 Temperature 98.7 F 09/03/25 11:08 Pulse Rate 76 09/03/25 12:40 Respiratory Rate 16 09/03/25 12:40 Blood Pressure 135/95 H 09/03/25 12:40 Pulse Oximetry 98 09/03/25 12:40 Oxygen Delivery Method Room Air 09/03/25 12:40 Medical Decision Making MDM Narrative Medical decision making narrative: It was concerning that the patient have some systemic symptoms that I cannot explain with the rash including the nausea and the fact that she also has been vomiting for the last few days She with the patient history of hypertension and the fact that she is not taking any medication after she was already diagnosed with a stroke CBC and chemistry were ordered CBC and chemistry with no acute pathology Patient started on Solu-Medrol and then discharged home with prednisone and Benadryl The patient is to follow up with primary care physician in next 2-3 days or to return to the emergency department should any of the signs or symptoms worsen or new symptoms develop. The patient agrees with the following Diagnosis and Treatment plan and the patient will be discharged home. Lab Data Labs: Lab Results 09/03/25 09/03/25 Range/Units 11:42 12:34 WBC 9.5 (4.0-11.0) 10^3/uL RBC 4.53 (4.20-5.40) 10^6/uL Hgb 12.9 (12.0-16.0) g/dL Hct 38.1 (36.0-48.0) % MCV 84.1 (81.0-99.0) fL MCH 28.5 (26.7-34.0) pg MCHC 33.9 (29.9-35.2) g/dL RDW 12.8 (11.0-15.0) % Plt Count 335 (150-450) 10^3/uL MPV 8.7 L (9.5-13.5) fL Neut % (Auto) 66.0 (43.0-75.0) % Lymph % (Auto) 26.7 (20.5-60.0) % [place] % (Auto) 6.3 (1.7-12.0) % Eos % (Auto) 0.4 L (0.9-7.0) % Baso % (Auto) 0.2 (0.2-2.0) % Neut # (Auto) 6.3 (1.4-6.5) 10^3/uL Lymph # (Auto) 2.5 (1.2-3.8) 10^3/uL [place] # (Auto) 0.6 (0.3-0.8) 10^3/uL Eos # (Auto) 0.0 (0.0-0.7) 10^3/uL Baso # (Auto) 0.0 (0.0-0.1) 10^3/uL Abs Immat Gran (auto) 0.04 H (0.00-0.03) 10^3/uL Imm/Tot Granulo (auto) 0.4 (0.0-0.5) % Sodium 141 (136-145) mmol/L Potassium 3.9 (3.5-5.1) mmol/L Chloride 107 (98-107) mmol/L Carbon Dioxide 24.2 (21.0-32.0) mmol/L Anion Gap 13.7 BUN 11.0 (7.0-18.0) mg/dL Creatinine 0.61 (0.55-1.02) mg/dL Est GFR ( Amer) >60 (>=60 mL/min/1.73m^2) Est GFR (Non-Af Amer) >60 (>=60 mL/min/1.73m^2) BUN/Creatinine Ratio 18.0 Glucose 84 (74-106) mg/dL Calcium 9.1 (8.5-10.1) mg/dL Total Bilirubin 0.7 (0.2-1.0) mg/dL AST 16 (15-37) U/L ALT 32 (14-59) U/L Alkaline Phosphatase 56 (46-116) U/L Total Protein 6.5 (6.4-8.2) g/dL Albumin 3.3 L (3.4-5.0) g/dL Globulin 3.2 g/dL Albumin/Globulin Ratio 1.0 Discharge Plan Discharge Chief Complaint: Skin/Abscess/Foreign Body Clinical Impression: Contact dermatitis Patient Disposition: Home, Self-Care Time of Disposition Decision: 12:12 Condition: Good Prescriptions / Home Meds: New prednisone 20 mg tablet 40 mg PO DAILY 5 Days Qty: 10 0RF Benadryl 2 % gel 1 applic topical TID PRN (Reason: itching) Qty: 103 0RF No Action aspirin 81 mg tablet,chewable 81 mg PO DAILY Print Language: Maori Instructions: Contact Dermatitis (DC) Referrals: [facility] [Primary Care Provider] - 1 week
[2025-09-03 12:09] LABS: Alanine Aminotransferase 32 U/L (14-59); Albumin Globulin Ratio 1.0; Albumin Level 3.3 g/dL (3.4-5.0); Alkaline Phosphatase 56 U/L (46-116); Anion Gap 13.7; Aspartate Amino Transferase 16 U/L (15-37); Blood Urea Nitrogen 11.0 mg/dL (7.0-18.0); Calcium 9.1 mg/dL (8.5-10.1); Carbon Dioxide 24.2 mmol/L (21.0-32.0); Chloride 107 mmol/L (98-107); Estimated GFR (African America >60 (>=60 mL/min/1.73m^2); Estimated GFR (Non-African Ame >60 (>=60 mL/min/1.73m^2); Globulin 3.2 g/dL; Glucose 84 mg/dL (74-106); Potassium 3.9 mmol/L (3.5-5.1); Sodium 141 mmol/L (136-145); Total Protein 6.5 g/dL (6.4-8.2)
[2025-09-03 12:40] VITALS: BP 135/95; PULSE 76; O2SAT 98
[2025-09-03 12:41] LABS: Hematocrit 38.1 % (36.0-48.0); Hemoglobin 12.9 g/dL (12.0-16.0); Immature Granulocytes Abs Auto 0.04 10^3/uL (0.00-0.03); Immature Granulocytes Pct Auto 0.4 % (0.0-0.5); Lymphocytes Absolute Auto 2.5 10^3/uL (1.2-3.8); Mean Corpuscular HGB Conc 33.9 g/dL (29.9-35.2); Mean Corpuscular Hemoglobin 28.5 pg (26.7-34.0); Mean Corpuscular Volume 84.1 fL (81.0-99.0); Platelet Count 335 10^3/uL (150-450); Red Blood Count 4.53 10^6/uL (4.20-5.40); White Blood Count 9.5 10^3/uL (4.0-11.0)
== END 2025-09-03 13:04 | disposition home or self-care (01) ==
PROVIDERS: Emergency Provider Emergency Medicine
DX: L25.9 Unspecified contact dermatitis, unspecified cause (principal); Z86.73 Personal history of transient ischemic attack (TIA), and cerebral infarction without residual deficits; Z87.891 Personal history of nicotine dependence; I10 Essential (primary) hypertension; Z91.141 Patient's other noncompliance with medication regimen due to financial hardship; Z79.82 Long term (current) use of aspirin
CPT/HCPCS: 36415; 80053; 85025; 96374; 99284; J2919